=== PATIENT | female | born 1970 | race Caucasian/White ===

== ENCOUNTER 2016-05-15 17:32 | Observation (INO) ==
--- NOTE | 2016-05-15 18:33 | Emergency Department Note ---
Disposition Clinical Impression: Syncope due to orthostatic hypotension, Head injury, Neck pain, Dehydration, Diabetes Disposition: Admitted As Inpatient Referrals: NO,PCP [Non-Partnered Physician] - Forms: ED Satisfaction Letter General Adult HPI - General Chief complaint: ED Syncope Stated complaint: Syncope Time Seen by Provider: 05/15/16 18:32 Source: patient Limitations: no limitations - History of Present Illness HPI Narrative: 46-year-old female with a history of coronary disease, diabetes, and stroke reports emergent department complaining of a head injury. The patient reports she was in the bathroom getting dressed she leaned over and passed out hitting her head. She complains of a severe headache rating it 9 out of 10 as well as significant neck pain. The patient reports she has been taking Tylenol which has been ineffective. She also describes a significant cough but no overt shortness of breath. She has chest pain when breathing in and out. The patient has a remote history of DVT she is not anticoagulated at this time. The patient reports she has had a fever. There is no history of abdominal pain vomiting or diarrhea no leg swelling or pain or coughing up blood. She denies any arm pain and leg pain back pain or injuries apart from acute head pain status post trauma in the right parietal area. There is no history of paresis or loss of urine or stool no seizure-like activity. She reports she was unconscious for a few minutes. The patient does not have a known cardiac arrhythmia and is never passed out before she states. She did not have neck pain or headache prior to passing out and hitting her head. Pain Scale: 10 - Related Data Home Medications Medication Instructions Recorded Confirmed Ciprofloxacin HCl [Cipro] 500 mg PO BID 05/15/16 05/15/16 ClonazePAM [Klonopin] 0.5 mg PO TID 05/15/16 Gabapentin [Neurontin] 300 mg PO QAM 05/15/16 05/15/16 Gabapentin [Neurontin] 600 mg PO HS 05/15/16 05/15/16 Omeprazole [PriLOSEC] 20 mg PO QAM 05/15/16 05/15/16 Allergies Allergy/AdvReac Type Severity Reaction Status Date / Time aspirin Allergy Hives Verified 05/15/16 17:37 ibuprofen Allergy HIVES AND Verified 05/15/16 17:37 VOMITING Iodinated Contrast Media - Allergy Difficulty Verified 01/09/17 17:37 Oral and Breathing ketorolac [From Toradol] Allergy Hives Verified 05/15/16 17:37 naproxen [From Naprosyn] Allergy Hives Verified 05/15/16 17:37 tramadol [From Ultram] Allergy Hives Verified 05/15/16 17:37 All systems ED: reviewed and negative except as stated. 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 Negative hematemesis and a negative Villagran sign.) - Eye Eye exam: Present: normal appearance, PERRL, EOMI. Absent: scleral icterus, conjunctival injection, nystagmus, miosis, mydriasis - ENT ENT exam: normal exam, normal oropharynx, mucous membranes moist, TM's normal bilaterally, normal external ear exam - Neck Neck exam: Present: normal inspection, trachea midline, tenderness. Absent: full ROM, meningismus - Chest Chest inspection: Present: symmetric chest wall rise. Absent: tenderness - Respiratory Respiratory exam: Present: normal lung sounds bilaterally. Absent: respiratory distress - Cardiovascular Cardiovascular exam: Present: regular rate, normal rhythm, normal heart sounds - Abdominal Exam Abdominal exam: Present: soft, Non-Tender. Absent: tenderness, distention, guarding, rebound, rigidity, pulsatile mass - Extremities Exam Extremities exam: Present: normal inspection, full ROM. Absent: tenderness, normal capillary refill, pedal edema, joint swelling, calf tenderness - Expanded Lower Extremity Exam Hip/Pelvis exam: Absent: tenderness Upper leg exam: Absent: tenderness Knee exam: Absent: tenderness Lower leg exam: Absent: tenderness, Homans' sign Neurovascular/Tendon exam: Absent: motor deficit, sensory deficit, tendon deficit - Back Exam Back exam: Present: normal inspection, full ROM. Absent: tenderness, CVA tenderness (R), CVA tenderness (L), vertebral tenderness - Neurological Exam Neurological exam: Present: alert, oriented X3. Absent: CN II-XII intact ( Apparent facial droop, history of CVA, chronic), motor sensory deficit - Psychiatric Psychiatric exam: Present: normal affect, normal mood - Skin Skin exam: Present: warm, dry, intact, normal color. Absent: rash, cyanosis, diaphoresis, erythema, pallor, mottled Course Vital Signs Temperature 98.4 F 05/15/16 17:37 Pulse Rate 98 05/15/16 17:37 Respiratory Rate 18 05/15/16 17:37 Blood Pressure 121/89 05/15/16 17:37 O2 Sat by Pulse Oximetry 97 05/15/16 17:37 Temperature 98.4 F 05/15/16 17:37 Pulse Rate 94 05/15/16 21:21 Respiratory Rate 20 05/15/16 21:18 Blood Pressure 107/85 05/15/16 21:21 O2 Sat by Pulse Oximetry 97 05/15/16 21:18 Oxygen Delivery Oxygen Delivery Room Air Medical Decision Making - [facility] Narrative Medical decision making narrative: The patient has a presentation suggestive of dehydration, she describes dizziness when sitting up, orthostatics did reveal a significant drop in her blood pressure when standing and she was symptomatic. IV fluid was ordered. A troponin level is pending. Lactic acid level is pending, patient does have a UTI. He appears to be somewhat acidotic, and ABG is also been ordered. The patient is symptomatic and has had a syncopal event and injured herself. Based on her presentation, I think it would be best to admit the patient and evaluate and treat further. She is at risk for falling again. I have consulted the hospitalist on-call. Lactic acid and troponin ABG pending. Indications for CT scan head: Blunt head trauma Severe head pain rated 9 out of 10 even after taking Tylenol for pain Syncope Loss of consciousness Multiple comorbidities History of CVA Neurologic defects - Lab Data Lab results reviewed: Yes I reviewed the patient's lab results. Result diagrams: 05/15/16 19:37 05/15/16 19:37 Lab Results 05/15/16 05/15/16 05/15/16 Range/Units 19:37 19:37 19:37 WBC 8.4 (4.3-11.1) K/mcL RBC 4.72 (3.82-4.97) M/mcL Hgb 15.0 (11.5-15.4) g/dL Hct 47.1 H (35.3-44.9) % MCV 99.8 (83.0-100.0) fL MCH 31.8 (28.0-33.3) pg MCHC 31.8 (31.6-35.5) g/dL RDW 13.3 (11.5-14.5) % Plt Count 207 (140-400) K/mcL MPV 9.9 (9.4-12.4) fL Immature Gran % 0.4 (0-4) % Seg Neutrophils % 58.5 % Lymphocytes % 29.6 % Monocytes % 8.3 % Eosinophils % 2.5 % Basophils % 0.7 % Neutrophils # 4.9 (1.6-8.9) K/mcL Lymphocytes # 2.5 (0.6-4.6) K/mcL Monocytes # 0.7 (0.0-1.3) K/mcL Eosinophils # 0.2 (0.0-0.6) K/mcL Basophils # 0.1 (0.0-0.2) K/mcL PT 10.0 (9.4-12.1) Seconds INR 0.9 APTT 22.8 L (26.0-36.0) Seconds Sodium 138 (136-145) mEq/L Potassium 4.5 (3.5-4.5) mEq/L Chloride 111 H (98-109) mEq/L Carbon Dioxide 13 L (19-29) mEq/L BUN 10 (7-20) mg/dL Creatinine 0.66 (0.57-1.11) mg/dL Est GFR ( Amer) > 60 (> 60) Est GFR (Non-Af Amer) > 60 (> 60) BUN/Creatinine Ratio 15 (6-26) Glucose 85 (70-99) mg/dL Calculated Osmolality 284 (280-300) Calcium 9.1 (8.6-10.8) mg/dL C-Reactive Protein 12 H (Less than 5) mg/L Urine Color (Yellow) Urine Clarity (Clear) Urine pH (5.0-8.0) pH Units Ur Specific [place] (1.010-1.025) Urine Protein (Neg-Trace) mg/dL Urine Glucose (UA) (Normal) mg/dL Urine Ketones (Negative) mg/dL Urine Blood (Negative) Urine Nitrite (Negative) Urine Bilirubin (Negative) Urine Urobilinogen (Normal) mg/dL Ur Leukocyte Esterase (Negative) Urine Microscopic RBC (0-3) per hpf Urine Microscopic WBC (0-3) per hpf Ur Squamous Epith Cells (None-Few) per lpf Urine Bacteria (None-Few) per hpf Hyaline Casts (None-Few) per lpf Ur Culture Indicated? (NO) Specimen Rejected 05/15/16 05/15/16 Range/Units 19:37 20:50 WBC (4.3-11.1) K/mcL RBC (3.82-4.97) M/mcL Hgb (11.5-15.4) g/dL Hct (35.3-44.9) % MCV (83.0-100.0) fL MCH (28.0-33.3) pg MCHC (31.6-35.5) g/dL RDW (11.5-14.5) % Plt Count (140-400) K/mcL MPV (9.4-12.4) fL Immature Gran % (0-4) % Seg Neutrophils % % Lymphocytes % % Monocytes % % Eosinophils % % Basophils % % Neutrophils # (1.6-8.9) K/mcL Lymphocytes # (0.6-4.6) K/mcL Monocytes # (0.0-1.3) K/mcL Eosinophils # (0.0-0.6) K/mcL Basophils # (0.0-0.2) K/mcL PT (9.4-12.1) Seconds INR APTT (26.0-36.0) Seconds Sodium (136-145) mEq/L Potassium (3.5-4.5) mEq/L Chloride (98-109) mEq/L Carbon Dioxide (19-29) mEq/L BUN (7-20) mg/dL Creatinine (0.57-1.11) mg/dL Est GFR ( Amer) (> 60) Est GFR (Non-Af Amer) (> 60) BUN/Creatinine Ratio (6-26) Glucose (70-99) mg/dL Calculated Osmolality (280-300) Calcium (8.6-10.8) mg/dL C-Reactive Protein (Less than 5) mg/L Urine Color Yellow (Yellow) Urine Clarity Cloudy A (Clear) Urine pH 5.5 (5.0-8.0) pH Units Ur Specific [place] 1.019 (1.010-1.025) Urine Protein Negative (Neg-Trace) mg/dL Urine Glucose (UA) Normal (Normal) mg/dL Urine Ketones Negative (Negative) mg/dL Urine Blood Negative (Negative) Urine Nitrite Negative (Negative) Urine Bilirubin Negative (Negative) Urine Urobilinogen Normal (Normal) mg/dL Ur Leukocyte Esterase Small H (Negative) Urine Microscopic RBC 0-3 (0-3) per hpf Urine Microscopic WBC 15-30 H (0-3) per hpf Ur Squamous Epith Cells Many H (None-Few) per lpf Urine Bacteria Moderate H (None-Few) per hpf Hyaline Casts None Seen (None-Few) per lpf Ur Culture Indicated? YES A (NO) Specimen Rejected Hemolyzed - Radiology Data Radiology results reviewed: Yes I reviewed the patient's radiology results.
[2016-05-15] MEDS ORDERED: *HR* HYDROcodone/Acet 5/325 mg TABLET PO ONE (19:47)
[2016-05-15 20:01] LABS: BUN/Creatinine Ratio 15 (6-26); Blood Urea Nitrogen 10 mg/dL (7-20); Calcium 9.1 mg/dL (8.6-10.8); Carbon Dioxide 13 mEq/L (19-29); Chloride 111 mEq/L (98-109); Glucose 85 mg/dL (70-99); Osmolality,Calculated 284 (280-300); Potassium 4.5 mEq/L (3.5-4.5); Sodium 138 mEq/L (136-145); eGFR For African Americans > 60 (> 60); eGFR For Non-African Americans > 60 (> 60)
[2016-05-15 20:03] LABS: INR 0.9
[2016-05-15 20:06] LABS: Activated Partial Thrombo Time 22.8 Seconds (26.0-36.0)
[2016-05-15 20:14] LABS: C-Reactive Protein 12 mg/L (Less than 5)
[2016-05-15 20:21] LABS: Basophils # 0.1 K/mcL (0.0-0.2); Basophils % 0.7 %; Eosinophils # 0.2 K/mcL (0.0-0.6); Eosinophils % 2.5 %; Hematocrit 47.1 % (35.3-44.9); Immature Granulocytes % 0.4 % (0-4); Lymphocytes # 2.5 K/mcL (0.6-4.6); Lymphocytes % 29.6 %; Mean Corpuscular HGB Conc 31.8 g/dL (31.6-35.5); Mean Corpuscular Hemoglobin 31.8 pg (28.0-33.3); Mean Corpuscular Volume 99.8 fL (83.0-100.0); Mean Platelet Volume 9.9 fL (9.4-12.4); Monocytes # 0.7 K/mcL (0.0-1.3); Monocytes % 8.3 %; Neutrophils # 4.9 K/mcL (1.6-8.9); Platelet Count 207 K/mcL (140-400); Red Blood Count 4.72 M/mcL (3.82-4.97); Red Cell Distribution Width 13.3 % (11.5-14.5); Segmented Neutrophils % 58.5 %
[2016-05-15 21:02] LABS: Bilirubin,Urine Negative (Negative); Blood,Urine Negative (Negative); Clarity,Urine Cloudy (Clear); Color,Urine Yellow (Yellow); Glucose,Urine (UA) Normal (Normal); Ketones,Urine Negative (Negative); Leukocyte Esterase,Urine Small (Negative); Nitrite,Urine Negative (Negative); PH,Urine 5.5 pH Units (5.0-8.0); Protein,Urine Negative (Neg-Trace); Specific Gravity,Urine 1.019 (1.010-1.025); Urobilinogen,Urine Normal (Normal)
[2016-05-15 21:05] LABS: Bacteria,Urine Moderate per hpf (None-Few); Hyaline Casts,Urine None Seen per lpf (None-Few); RBC,Urine 0-3 per hpf (0-3); Squamous Epithelial Cell,Urine Many per lpf (None-Few); WBC,Urine 15-30 per hpf (0-3)
[2016-05-15] MEDS ORDERED: *HR* HYDROmorphone (PF) 1 MG/ML SYRINGE IVP ONE ×2 (21:27→23:53)
[2016-05-15] MEDS ORDERED: 0.9 % Sodium Chloride 1,000 ML IVC ONE (21:27)
[2016-05-15] MEDS ORDERED: Ondansetron 4 MG/2 ML VIAL IVP ONE (21:28)
[2016-05-16 01:05] LABS: ABG Base Excess -0.3 mEq/L (-2.0 to 3.0); ABG HCO3 26.4 mEQ/L (21-27); ABG Oxygen Saturation 94 % (95-98); ABG PCO2 50 mmHg (35-45); ABG PH 7.33 pH Units (7.32-7.45); ABG PO2 74 mmHg (85-104); ABG TCO2 27.9 mEq/L (20-26); Blood Gas FiO2 21 %
[2016-05-16] MEDS ORDERED: Ondansetron ODT 4 MG TAB.RAPDIS SL PRN (01:08)
[2016-05-16] MEDS ORDERED: Acetaminophen 325 MG TABLET PO PRN (01:08)
[2016-05-16] MEDS ORDERED: Naloxone 0.4 MG/ML INJ IVP PRN (01:08)
--- NOTE | 2016-05-16 01:13 | Internal Med History&Physical ---
Date of Encounter: 05/16/16 Time of Encounter: 00:00 Assessment and Plan (1) Syncope Current visit: Yes Status: Acute Possible etiologies of vasovagal as well as orthostatic hypotension and acute viral illness. Orthostatics in the ED demonstrated 107/85 standing and 122/85 supine pressures. Will give maintenance fluids at 100ml/hr EKG deomstrated normal sinus rhythm. CT head and neck demonstrated no acute fracture or subluxation of the cervical spine and no acute intracranial process. Chest XR: no acute cardiopulmonary process. Qualifiers: Syncope type: unspecified Qualified Code(s): R55 - Syncope and collapse (2) Viral illness Current visit: Yes Status: Acute History of productive cough, fevers and pleuritic pain on inspiration. Labs ordered. Mycoplasma antibodies, rapid flu for A/B, as well as coxsackie B Awaiting lactic acid CRP was elevated at 12. (3) Diabetes Current visit: Yes Status: Acute Diet controlled. Sugar upon arrival was 85. Diabetic diet ordered. 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 No evidence of acute findings currently. Internal Medicine - H&P: HPI Chief complaint: syncope Admitted From: Emergency Dept Plans for Post Hospital Care: Home History of present illness: Ms. Craig is a 46 year old female with PMH significant for DM, stroke, previous DVT, COPD, HLD, HTN, renal stones, PCOS, anxiety and depression who presented to the emergency department with a syncopal episode. The patient states that earlier today she was in the bathroom and put her foot up on the toilet to tie her shoe and as she leaned forward she lost consciousness and fell forward into the wall. She states she came to with the right side of her head resting against the sink. She denies prior history of syncopal episodes, and arrhythmias. She states she has had a cough that has been productive of clear sputum for the past week and has had pain upon inspiration stating that it feels as if her lungs are on fire when she takes a deep breath. She additionally reports having fevers measured at home for the past week between 100-101. She currently complains of a 9/10 headache on the right side of her head that tylenol was unable to help with. She denies nausea, vomiting, diarrhea , loss of bowel or bladder function during her syncopal episode, and any urinary symptoms. Past Med Surg Social Fam HX - Past Medical History Medical history: COPD, DVT, diabetes, hyperlipidemia, hypertension, kidney stones, other Psychiatric history: anxiety, depression - Past Surgical History Surgical History: appendectomy, , cholecystectomy, herniorrhaphy, hysterectomy, sinus surgery, other - Social History Smoking Status: Former smoker Smokeless Tobacco Status: No Alcohol use: none Drug use: none - Family History Mother Living Status: Hx Family Cardiac Disorders: No Hx Family Respiratory Disorders: No Hx Family Cancer: Yes (colon cancer) Hx Family GI Disorders: No Hx Family Genitourinary Disorders: No Hx Family Endocrine Disorder: No Hx Family Musculoskeletal Disorders: No Hx Family Neuromuscular Disorders: No Hx Family Neurologic Disorders: No Hx Family HEENT Disorders: No Hx Family Autoimmune Disorders: No Hx Family Reproductive Disorders: No Hx Family Psychosocial Disorders: No Hx Family Medical Disorders: No Internal Medicine - H&P: Meds Ciprofloxacin HCl [Cipro] 500 mg PO BID 05/15/16 [History] ClonazePAM [Klonopin] 0.5 mg PO TID 05/15/16 [History] Gabapentin [Neurontin] 300 mg PO QAM 05/15/16 [History] Gabapentin [Neurontin] 600 mg PO HS 05/15/16 [History] Omeprazole [PriLOSEC] 20 mg PO QAM 05/15/16 [History] Allergies aspirin Allergy (Verified 05/15/16 17:37) Hives ibuprofen Allergy (Verified 05/15/16 17:37) HIVES AND VOMITING Iodinated Contrast Media - Oral and Allergy (Verified 05/15/16 17:37) Difficulty Breathing ketorolac [From Toradol] Allergy (Verified 05/15/16 17:37) Hives naproxen [From Naprosyn] Allergy (Verified 05/15/16 17:37) Hives tramadol [From Ultram] Allergy (Verified 05/15/16 17:37) Hives All Systems PM: A 10-system review of systems was performed and is negative for pertinent findings except as documented above in the HPI. - Constitutional Constitutional: fever(s), no chills, no night sweats - EENT Eyes: no change in vision, no discharge, no pain, no photophobia Ears: ear pain (right), no ear discharge, no tinnitus Nose, mouth and throat: no dysphagia, no nasal discharge, no neck pain, no sore throat - Cardiovascular Cardiovascular ROS IM: syncope, no chest pain, no diaphoresis, no dyspnea, no lightheadedness, no palpitations - Respiratory Respiratory: cough, pain on inspiration, no dyspnea, no wheezing, no excessive phlegm production - Gastrointestinal Gastrointestinal: no abdominal pain, no diarrhea, no hematemesis, no hematochezia, no melena, no nausea, no vomiting - Genitourinary Genitourinary: no change in urinary stream, no dysuria, no flank pain, no hematuria - Musculoskeletal Musculoskeletal ROS IM: no numbness, no tingling - Integumentary Integumentary IM: no rash, no unusual bruising - Neurological Neurological ROS: no confusion, no convulsions, no focal weakness, no numbness, no tingling, no tremor(s) - Hematologic/Lymphatic Hematologic/Lymphatic: no easy bruising - Constitutional Vitals: Temp Pulse Resp BP Pulse Ox 97.3 F L 91 20 133/72 92 L 05/16/16 00:29 05/16/16 00:29 05/16/16 00:29 05/16/16 00:05/16/16 00:29 General appearance: Present: disheveled, A&O X 3 - Head Head exam: Present: normocephalic Additional comments: Mild swelling of scalp on left parietal area with tenderness to palpation. - Eye Eye exam: Present: EOMI, conjuntiva pink, sclera anicteric Additional comments: Pupils pinpoint, patient was given dilaudid in ED. - Neck Neck exam general surgery: Present: supple, trachea midline. Absent: lymphadenopathy - Respiratory Respiratory exam: Present: CTAB. Absent: accessory muscle use, rales, rhonchi, wheezes - Cardiovascular Cardiovascular exam: Present: RRR, +S1, +S2. Absent: diastolic murmur, gallop, rubs, systolic murmur - GI/Abdominal GI/Abdominal exam: Present: normal bowel sounds, soft, no peritoneal signs. Absent: distended, tenderness Additional comments: obese - Extremities Exam Extremities exam: Present: warm, radial pulses palpable and symetrical. Absent : calf tenderness, cyanotic, pedal edema - Neurological Exam Neurological exam: Present: CN II-XII intact, oriented X3, no focal deficits, facial droop (left sided). Absent: pronater drift, speech deficit - Skin Skin exam: Present: dry, intact Internal Med - H&P Results - Labs CBC & Chem 7: 05/15/16 19:37 05/15/16 19:37 - Attending Attestation I examined this patient and my medical decision-making was reviewed with the FURNACE REPAIR MECHANIC/PA/Advanced Practice Nurse/Resident Physician. I agree with the documented findings, disposition and treatment plan as described except to the extent set forth below.
[2016-05-16] MEDS: 0.9 % Sodium Chloride 1,000 ML IVC SCH ×2 (01:39→10:34)
[2016-05-16] MEDS: *HR* HYDROmorphone (PF) 1 MG/ML SYRINGE IVP PRN ×5 (01:44→21:07)
[2016-05-16] MEDS ORDERED: Ipratropium/Albuterol Neb 3 ML IH ONE (01:46)
[2016-05-16] MEDS: *HR* HYDROcodone/Acet 5/325 mg TABLET PO PRN ×3 (04:23→18:42)
[2016-05-16] MEDS: Gabapentin 300 MG CAPSULE PO SCH (07:44)
[2016-05-16] MEDS: *HR* Heparin 5,000 UNIT/ML VIAL SQ SCH ×3 (07:44→23:17)
--- NOTE | 2016-05-16 14:45 | Electrocardiograph Report ---
[facility] Test Date: 2016-05-15 Pat Name: Kimberley Craig Department: 102 Room: 3B35 Gender: F Area Captain: Rufina : 1970 Requested By: Jose Donahue Order Number: [id number] Reading MD: Roseline Frank Measurements Intervals [place] Rate: 87 P: 61 IN: 162 QRS: 47 QRSD: 92 T: 47 QT: 367 QTc: 411 Interpretive Statements SINUS RHYTHM Electronically Signed On 05-16-16 14:41:01 EST by Roseline Frank
[2016-05-16] MEDS: clonazePAM 0.5 MG TABLET PO PRN (22:09)
[2016-05-16] MEDS: Albuterol 2.5 MG/3 ML NEBULIZER IH PRN (23:40)
[2016-05-17] MEDS: *HR* HYDROmorphone (PF) 1 MG/ML SYRINGE IVP PRN ×2 (01:08→05:20)
[2016-05-17] MEDS: *HR* HYDROcodone/Acet 5/325 mg TABLET PO PRN ×3 (02:50→15:22)
[2016-05-17] MEDS: Albuterol 2.5 MG/3 ML NEBULIZER IH PRN ×4 (03:59→15:57)
[2016-05-17 04:52] LABS: Basophils # 0.1 K/mcL (0.0-0.2); Eosinophils # 0.2 K/mcL (0.0-0.6); Eosinophils % 2.9 %; Hematocrit 39.7 % (35.3-44.9); Hemoglobin 13.2 g/dL (11.5-15.4); Immature Granulocytes % 0.5 % (0-4); Lymphocytes # 2.2 K/mcL (0.6-4.6); Lymphocytes % 30.3 %; Mean Corpuscular HGB Conc 33.2 g/dL (31.6-35.5); Mean Corpuscular Volume 93.2 fL (83.0-100.0); Mean Platelet Volume 10.3 fL (9.4-12.4); Monocytes # 0.8 K/mcL (0.0-1.3); Monocytes % 10.2 %; Platelet Count 198 K/mcL (140-400); Red Blood Count 4.26 M/mcL (3.82-4.97); Red Cell Distribution Width 12.7 % (11.5-14.5); Segmented Neutrophils % 55.1 %
[2016-05-17 05:03] LABS: BUN/Creatinine Ratio 16 (6-26); Blood Urea Nitrogen 11 mg/dL (7-20); Calcium 8.9 mg/dL (8.6-10.8); Carbon Dioxide 19 mEq/L (19-29); Chloride 107 mEq/L (98-109); Glucose 147 mg/dL (70-99); Osmolality,Calculated 288 (280-300); Potassium 3.9 mEq/L (3.5-4.5); Sodium 138 mEq/L (136-145); eGFR For African Americans > 60 (> 60); eGFR For Non-African Americans > 60 (> 60)
[2016-05-17] MEDS: Gabapentin 300 MG CAPSULE PO SCH (09:17)
[2016-05-17] MEDS: *HR* Heparin 5,000 UNIT/ML VIAL SQ SCH ×2 (09:17→15:22)
[2016-05-17] MEDS: clonazePAM 0.5 MG TABLET PO PRN (09:27)
[2016-05-17 14:51] VITALS: BP 130/88
--- NOTE | 2016-05-17 17:03 | Discharge Summary ---
Date of Encounter: 05/17/16 Time of Encounter: 16:53 - Discharge Diagnosis (1) Syncope due to orthostatic hypotension Priority: Primary Status: Acute (2) Benign paroxysmal positional vertigo Priority: Secondary Status: Acute Qualifiers: Laterality: right Qualified Code(s): H81.11 - Benign paroxysmal vertigo, right ear (3) Viral illness Priority: Secondary Status: Acute (4) Morbid obesity Priority: Secondary Status: Chronic Qualifiers: Obesity type: due to excess calories Qualified Code(s): E66.01 - Morbid ( severe) obesity due to excess calories - Discharge Medications Prescriptions: Acetaminophen w/Cod 300-30 mg [Tylenol w/Codeine #3] 1 each PO Q6HR #14 tablet Cefdinir [Omnicef] 300 mg PO BID #10 capsule Gabapentin [Neurontin] 300 mg PO HS #30 capsule Meclizine [Antivert] 25 mg PO BID PRN #30 tablet PRN Reason: Vertigo Home Medications: ClonazePAM [Klonopin] 0.5 mg PO TID 05/15/16 [History] Gabapentin [Neurontin] 300 mg PO QAM 05/15/16 [History] Omeprazole [PriLOSEC] 20 mg PO QAM 05/15/16 [History] Albuterol Neb [Proventil Neb] 2.5 mg IH QID PRN 05/16/16 [History] Albuterol Sulfate [Albuterol Inhaler] 2 puff IH Q4HR PRN 05/16/16 [History] Acetaminophen w/Cod 300-30 mg [Tylenol w/Codeine #3] 1 each PO Q6HR #14 tablet 05/17/16 [Rx] Cefdinir [Omnicef] 300 mg PO BID #10 capsule 05/17/16 [Rx] Gabapentin [Neurontin] 300 mg PO HS #30 capsule 05/17/16 [Rx] Meclizine [Antivert] 25 mg PO BID PRN #30 tablet 05/17/16 [Rx] Allergies/Adverse Reactions: Allergies aspirin Allergy (Verified 05/15/16 17:37) Hives ibuprofen Allergy (Verified 05/15/16 17:37) HIVES AND VOMITING Iodinated Contrast Media - Oral and Allergy (Verified 05/15/16 17:37) Difficulty Breathing ketorolac [From Toradol] Allergy (Verified 05/15/16 17:37) Hives naproxen [From Naprosyn] Allergy (Verified 05/15/16 17:37) Hives tramadol [From Ultram] Allergy (Verified 05/15/16 17:37) Hives Date of admission: 05/16/16 00:24 Primary care physician: Derrek Kumar MD - Patient Status Disposition: Home, Self-Care Condition: Good Overall status at discharge: patient is progressing back to baseline - Discharge Instructions Follow Up With: Derrek Kumar MD [Primary Care Provider] - Hospital course: Ms. Craig is a 46 year old female who presented with syncope and was found to have hx of vertigo and had skipped her meclizine. She also was taking a combination of vicodin and gabapentin which could have contributed to symptoms. CT head was unremarkable. Her Gabapentin has been reduced and patient is given new Rx for Meclizine. She will follow up with her PCP as her symptoms have resolved. She is also given tylenol#3 for tension headache. - Time Spent with Patient Total time spent providing and/or coordinating discharge services: Less than 30 minutes - Constitutional Vitals: Temp Pulse Resp BP Pulse Ox 98.1 F 96 16 130/88 95 05/17/16 14:50 05/17/16 14:50 05/17/16 14:50 05/17/16 14:50 05/17/16 14:50 General appearance: Present: disheveled, A&O X 3 - Head Head exam: Present: atraumatic, normocephalic - Eye Eye exam: Present: PERRL, conjuntiva pink, sclera anicteric Pupils: Present: PERRL - Neck Neck exam general surgery: Present: supple, trachea midline. Absent: lymphadenopathy - Respiratory Respiratory exam: Present: CTAB. Absent: accessory muscle use, rales, rhonchi, wheezes - Cardiovascular Cardiovascular exam: Present: RRR, +S1, +S2. Absent: diastolic murmur, gallop, rubs, systolic murmur - GI/Abdominal GI/Abdominal exam: Present: normal bowel sounds, soft, no peritoneal signs. Absent: distended, tenderness - Extremities Exam Extremities exam: Present: warm, radial pulses palpable and symetrical. Absent : calf tenderness, cyanotic, pedal edema - Neurological Exam Neurological exam: Present: CN II-XII intact, oriented X3, no focal deficits. Absent: pronater drift, facial droop, speech deficit - Skin Skin exam: Present: dry, intact
[2016-05-19 08:15] LABS: Mycoplasma pneumoniae IgG 0.12 U/L (<=0.09)
[2016-05-23 21:11] LABS: Coxsackie B Type 1 Antibody 1:40 (<1:10); Coxsackie B Type 2 Antibody 1:40 (<1:10); Coxsackie B Type 3 Antibody >= 1:640 (<1:10); Coxsackie B Type 4 Antibody >= 1:640 (<1:10); Coxsackie B Type 5 Antibody 1:20 (<1:10)
[2016-05-24 07:34] LABS: Coxsackie B Type 6 Antibody <1:10 (<1:10)
== END 2016-05-17 17:41 | disposition home or self-care (01) ==
LOC: 3BNU 17:32 → EMEROO 17:32 → SUATTDRO 05-16 00:24 → 3BNU 05-16 00:28
PROVIDERS: ADMIT Internal Medicine; ATTEND Family Medicine

== ENCOUNTER 2017-11-06 07:22 | Inpatient (IN) ==
[2017-11-06] MEDS ORDERED: *HR* FentaNYL (PF) 100 MCG/2 ML VIAL IVP ONE ×2 (07:36→09:10)
[2017-11-06] MEDS ORDERED: Ondansetron 4 MG/2 ML VIAL IVP ONE (07:36)
--- NOTE | 2017-11-06 07:39 | Emergency Department Note ---
Disposition Clinical Impression: Sigmoid diverticulitis Disposition: Admitted As Inpatient Condition: Fair Forms: ED Satisfaction Letter, Work/School Release Time of Disposition: 09:19 Abdominal Pain HPI - General Chief Complaint: ED Abdominal Pain Stated Complaint: abd pain Time Seen by Provider: 11/06/17 07:28 Source: patient Mode of arrival: ambulatory Limitations: no limitations Nursing Notes Reviewed: Yes Vital Signs Reviewed: Yes - History of Present Illness HPI Narrative: Left lower quadrant abdominal pain similar to previous bouts of diverticulitis. Pt Subjective Complaint: abdominal pain Onset (ago): hour(s) Consistency: constant Location: LLQ Pain Severity: severe Quality: other ("Pins and needles") Radiation: none Migration to: other (Vagina) Improves with: nothing Worsens with: nothing Associated symptoms: Reports: nausea Treatments prior to arrival: none - Related Data Home Medications Medication Instructions Recorded Confirmed Albuterol Neb [Proventil Neb] 2.5 mg IH QID PRN 05/16/16 01/11/17 Albuterol Sulfate [Albuterol 2 puff IH Q4HR PRN 05/16/16 01/11/17 Inhaler] Spiriva 1 spray IH DAILY 12/28/16 01/11/17 Previous Rx's Medication Instructions Recorded Gabapentin [Neurontin] 300 mg PO HS #30 capsule 05/17/16 Ciprofloxacin/Hydrocortisone 3 drop OT BID #5 drops.susp 12/28/16 [Cipro Hc Otic Suspension] Nitrofurantoin Monohyd/M-Cryst 100 mg PO BID #14 capsule 01/11/17 [Macrobid 100 mg Capsule] Dicyclomine [Bentyl] 10 mg PO QID PRN #40 capsule 02/22/17 Azithromycin [Azithromycin 6-Tab 250 mg PO PER PKG DI #6 tab 03/30/17 Pack] GuaiFENesin ER [Mucinex] 600 mg PO BID #10 tbbp.12hr 03/30/17 PredniSONE [Deltasone] 40 mg PO DAILY #4 tablet 03/30/17 Fluconazole [Diflucan] 150 mg PO ONCE #1 tablet 05/02/17 predniSONE [Prednisone] 50 mg PO DAILY 5 Days #5 tablet 05/13/17 LORazepam [Ativan] 0.5 mg PO BID PRN #6 tablet 05/14/17 Levofloxacin [Levaquin] 750 mg PO DAILY #5 tablet 05/30/17 Ondansetron ODT [Zofran ODT] 4 mg SL Q6HR #20 tab.rapdis 06/19/17 Ciprofloxacin [Cipro] 500 mg PO BID #14 tablet 06/24/17 metroNIDAZOLE [Flagyl] 500 mg PO TID #21 tablet 06/24/17 Albuterol Neb [Proventil Neb] 2.5 mg IH Q4-6H PRN #30 vial.neb 06/26/17 Dextromethorphan HBr [Robitussin] 15 mg PO Q4-6H PRN #60 capsule 06/26/17 GuaiFENesin ER [Mucinex] 600 mg PO BID #20 tbbp.12hr 06/26/17 predniSONE [Prednisone] 50 mg PO DAILY #5 tablet 06/26/17 Ciprofloxacin [Cipro] 500 mg PO BID #20 tablet 09/01/17 Ondansetron ODT [Zofran ODT] 4 mg SL Q6HR #10 tab.rapdis 09/01/17 metroNIDAZOLE [Flagyl] 500 mg PO BID #20 tablet 09/01/17 Ciprofloxacin [Cipro] 500 mg PO BID #20 tablet 09/19/17 Hyoscyamine SL [Levsin SL] 0.125 mg SL TID #10 tab.subl 09/19/17 Ondansetron ODT [Zofran ODT] 4 mg SL Q6HR #10 tab.rapdis 09/19/17 metroNIDAZOLE [Flagyl] 500 mg PO TID #30 tablet 09/19/17 Albuterol Sulfate [Albuterol 1 puff IH Q6HR PRN #1 inhaler 10/04/17 Inhaler] Azithromycin [Azithromycin 6-Tab 250 mg PO PER PKG DI #6 tab 10/04/17 Pack] Benzonatate [Tessalon] 200 mg PO TID PRN #9 capsule 10/04/17 Ipratropium/Albuterol Neb [Duoneb] 3 ml IH Q4HR PRN #12 vial.neb 10/04/17 Lidocaine Patch [Lidoderm 5% patch] 1 each TP DAILY PRN #3 adh..patch 10/04/17 predniSONE [Prednisone] 50 mg PO DAILY #4 tablet 10/04/17 Ciprofloxacin [Cipro] 500 mg PO BID #20 tablet 10/15/17 Hyoscyamine SL [Levsin SL] 0.125 mg SL TID #10 tab.subl 10/15/17 metroNIDAZOLE [Flagyl] 500 mg PO BID #20 tablet 10/15/17 Cephalexin [Keflex] 500 mg PO QID #28 capsule 10/21/17 Allergies Allergy/AdvReac Type Severity Reaction Status Date / Time aspirin Allergy Hives Verified 10/04/17 02:40 ibuprofen Allergy HIVES AND Verified 10/04/17 02:40 VOMITING Iodinated Contrast- Oral and Allergy Difficulty Verified 10/04/17 02:40 IV Dye Breathing ketorolac [From Toradol] Allergy Hives Verified 10/04/17 02:40 naproxen [From Naprosyn] Allergy Hives Verified 10/04/17 02:40 tramadol [From Ultram] Allergy Hives Verified 10/04/17 02:40 All systems ED: reviewed and negative except as stated. Constitutional: Reports: as per HPI Eyes: Reports: as per HPI ENT ED: Reports: as per HPI Cardiovascular: Reports: as per HPI Respiratory: Reports: as per HPI Gastrointestinal: Reports: abdominal pain, nausea Genitourinary: Reports: as per HPI Musculoskeletal: Reports: as per HPI Integumentary: Reports: as per HPI Neurological: Reports: as per HPI Psychiatric: Reports: as per HPI Endocrine: Reports: as per HPI Hematological/Lymphatic: Reports: as per HPI Allergic/Immunologic: Reports: as per HPI Abdominal Pain PMH - Past Medical History Medical history: Reports: COPD, CVA, diabetes, hyperlipidemia, hypertension, kidney stones, other (Diverticulitis) Female Surgical History: Reports: appendectomy, cholecystectomy, herniorrhaphy, hysterectomy, Tonsillectomy, 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: Reports: polycystic ovary syndrome Psychiatric history: Reports: anxiety, depression - Social History Smoking status: Never smoker Alcohol use: Reports: rarely Drug use: Reports: none Physical Exam Visibly uncomfortable - General Limitations: no limitations General appearance: alert, anxious - Head Head exam: atraumatic - Eye Eye exam: Present: normal appearance - ENT ENT exam: normal exam - Neck Neck exam: Present: normal inspection, full ROM - Chest Chest inspection: Present: normal inspection, symmetric chest wall rise - Respiratory Respiratory exam: Present: normal lung sounds bilaterally - Cardiovascular Cardiovascular exam: Present: regular rate, normal rhythm, normal heart sounds - Abdominal Exam Abdominal exam: Present: soft, tenderness (Tenderness localized to left lower quadrant. No guarding, rebound, rigidity), normal bowel sounds Abdominal tenderness: Absent: RUQ, RLQ - Rectal Exam Rectal exam: Present: deferred - Extremities Exam Extremities exam: Present: normal inspection - Neurological Exam Neurological exam: Present: alert, oriented X3, CN II-XII intact, normal gait, other (Chronic facial droop) - Psychiatric Psychiatric exam: Present: normal mood, anxious - Skin Skin exam: Present: warm, dry, intact Course Course Narrative: Patient presents with left lower quadrant abdominal pain. Subjectively she states this is similar to her previous bouts of diverticulitis. Per my review of medical records her last CT abdomen and pelvis was dated October [address]. CT abdomen and pelvis ordered today. I will check labs and offer the patient symptomatically treatment. - Reevaluation(s) Reevaluation #1: Test results discussed with patient. I will request admission to the medicine service Vital Signs Temperature 97.9 F 11/06/17 07:33 Pulse Rate 91 11/06/17 07:33 Respiratory Rate 14 11/06/17 07:33 Blood Pressure 130/86 11/06/17 07:33 O2 Sat by Pulse Oximetry 94 11/06/17 07:33 Temperature 97.9 F 11/06/17 07:33 Pulse Rate 82 11/06/17 08:59 Respiratory Rate 15 11/06/17 08:59 Blood Pressure 121/71 11/06/17 08:59 O2 Sat by Pulse Oximetry 92 11/06/17 08:59 Oxygen Delivery Oxygen Delivery Room Air Abdominal Pain - Medical Records Medical records reviewed: Yes I reviewed the patient's medical records. - Lab Data Lab results reviewed: Yes I reviewed the patient's lab results. Result diagrams: 11/06/17 07:43 11/06/17 07:43 Lab Results 11/06/17 11/06/17 11/06/17 Range/Units 07:43 07:43 07:43 WBC 8.8 (4.3-11.1) K/mcL RBC 4.65 (3.82-4.97) M/mcL Hgb 13.8 (11.5-15.4) g/dL Hct 41.9 (35.3-44.9) % MCV 90.1 (83.0-100.0) fL MCH 29.7 (28.0-33.3) pg MCHC 32.9 (31.6-35.5) g/dL RDW 14.1 (11.5-14.5) % Plt Count 237 (140-400) K/mcL MPV 9.2 L (9.4-12.4) fL Immature Gran % 0.3 (0-4) % Seg Neutrophils % 59.9 % Lymphocytes % 27.6 % Monocytes % 8.0 % Eosinophils % 3.6 % Basophils % 0.6 % Neutrophils # 5.3 (1.6-8.9) K/mcL Lymphocytes # 2.4 (0.6-4.6) K/mcL Monocytes # 0.7 (0.0-1.3) K/mcL Eosinophils # 0.3 (0.0-0.6) K/mcL Basophils # 0.1 (0.0-0.2) K/mcL PT (9.4-12.1) Seconds INR Sodium 140 (136-145) mEq/L Potassium 4.0 (3.5-5.1) mEq/L Chloride 110 H (98-107) mEq/L Carbon Dioxide 21 L (23-29) mEq/L BUN 11 (6-20) mg/dL Creatinine 0.71 (0.60-1.20) mg/dL Est GFR ( Amer) > 60 (> 60) Est GFR (Non-Af Amer) > 60 (> 60) BUN/Creatinine Ratio 15 (6-26) Glucose 122 H (70-105) mg/dL Calculated Osmolality 291 (280-300) Calcium 9.5 (8.6-10.3) mg/dL Total Bilirubin 0.3 (0.3-1.0) mg/dL AST 22 (13-39) Units/L ALT 25 (7-52) Units/L Alkaline Phosphatase 64 (34-104) Units/L Serum Total Protein 6.8 (6.4-8.9) g/dL Albumin 4.2 (3.5-5.7) g/dL Globulin 2.6 (2.4-3.5) g/dL Albumin/Globulin Ratio 1.6 (1.1-2.2) Lipase 32 (11-82) Units/L Urine Color Yellow (Yellow) Urine Clarity Clear (Clear) Urine pH 6.0 (5.0-8.0) pH Units Ur Specific [place] 1.010 (1.010-1.025) Urine Protein Negative (Neg-Trace) mg/dL Urine Glucose (UA) Normal (Normal) mg/dL Urine Ketones Negative (Negative) mg/dL Urine Blood Negative (Negative) Urine Nitrite Negative (Negative) Urine Bilirubin Negative (Negative) Urine Urobilinogen Normal (Normal) mg/dL Ur Leukocyte Esterase Negative (Negative) 11/06/17 Range/Units 07:43 WBC (4.3-11.1) K/mcL RBC (3.82-4.97) M/mcL Hgb (11.5-15.4) g/dL Hct (35.3-44.9) % MCV (83.0-100.0) fL MCH (28.0-33.3) pg MCHC (31.6-35.5) g/dL RDW (11.5-14.5) % Plt Count (140-400) K/mcL MPV (9.4-12.4) fL Immature Gran % (0-4) % Seg Neutrophils % % Lymphocytes % % Monocytes % % Eosinophils % % Basophils % % Neutrophils # (1.6-8.9) K/mcL Lymphocytes # (0.6-4.6) K/mcL Monocytes # (0.0-1.3) K/mcL Eosinophils # (0.0-0.6) K/mcL Basophils # (0.0-0.2) K/mcL PT 10.6 (9.4-12.1) Seconds INR 0.9 Sodium (136-145) mEq/L Potassium (3.5-5.1) mEq/L Chloride (98-107) mEq/L Carbon Dioxide (23-29) mEq/L BUN (6-20) mg/dL Creatinine (0.60-1.20) mg/dL Est GFR ( Amer) (> 60) Est GFR (Non-Af Amer) (> 60) BUN/Creatinine Ratio (6-26) Glucose (70-105) mg/dL Calculated Osmolality (280-300) Calcium (8.6-10.3) mg/dL Total Bilirubin (0.3-1.0) mg/dL AST (13-39) Units/L ALT (7-52) Units/L Alkaline Phosphatase (34-104) Units/L Serum Total Protein (6.4-8.9) g/dL Albumin (3.5-5.7) g/dL Globulin (2.4-3.5) g/dL Albumin/Globulin Ratio (1.1-2.2) Lipase (11-82) Units/L Urine Color (Yellow) Urine Clarity (Clear) Urine pH (5.0-8.0) pH Units Ur Specific [place] (1.010-1.025) Urine Protein (Neg-Trace) mg/dL Urine Glucose (UA) (Normal) mg/dL Urine Ketones (Negative) mg/dL Urine Blood (Negative) Urine Nitrite (Negative) Urine Bilirubin (Negative) Urine Urobilinogen (Normal) mg/dL Ur Leukocyte Esterase (Negative) - Radiology Data Radiology results reviewed: Yes I reviewed the patient's radiology results.
[2017-11-06 07:51] LABS: Bilirubin,Urine Negative (Negative); Blood,Urine Negative (Negative); Clarity,Urine Clear (Clear); Color,Urine Yellow (Yellow); Glucose,Urine (UA) Normal (Normal); Ketones,Urine Negative (Negative); Leukocyte Esterase,Urine Negative (Negative); Nitrite,Urine Negative (Negative); Protein,Urine Negative (Neg-Trace); Urobilinogen,Urine Normal (Normal)
[2017-11-06 07:53] LABS: Basophils # 0.1 K/mcL (0.0-0.2); Basophils % 0.6 %; Eosinophils # 0.3 K/mcL (0.0-0.6); Eosinophils % 3.6 %; Hematocrit 41.9 % (35.3-44.9); Hemoglobin 13.8 g/dL (11.5-15.4); Immature Granulocytes % 0.3 % (0-4); Lymphocytes # 2.4 K/mcL (0.6-4.6); Lymphocytes % 27.6 %; Mean Corpuscular HGB Conc 32.9 g/dL (31.6-35.5); Mean Corpuscular Hemoglobin 29.7 pg (28.0-33.3); Mean Corpuscular Volume 90.1 fL (83.0-100.0); Mean Platelet Volume 9.2 fL (9.4-12.4); Monocytes # 0.7 K/mcL (0.0-1.3); Neutrophils # 5.3 K/mcL (1.6-8.9); Platelet Count 237 K/mcL (140-400); Red Blood Count 4.65 M/mcL (3.82-4.97); Red Cell Distribution Width 14.1 % (11.5-14.5); Segmented Neutrophils % 59.9 %
[2017-11-06 08:00] LABS: INR 0.9; Prothrombin Time 10.6 Seconds (9.4-12.1)
[2017-11-06 08:14] LABS: Alanine Aminotransferase 25 Units/L (7-52); Albumin 4.2 g/dL (3.5-5.7); Albumin/Globulin Ratio 1.6 (1.1-2.2); Alkaline Phosphatase 64 Units/L (34-104); Aspartate Amino Transferase 22 Units/L (13-39); BUN/Creatinine Ratio 15 (6-26); Bilirubin,Total 0.3 mg/dL (0.3-1.0); Blood Urea Nitrogen 11 mg/dL (6-20); Calcium 9.5 mg/dL (8.6-10.3); Carbon Dioxide 21 mEq/L (23-29); Chloride 110 mEq/L (98-107); Globulin 2.6 g/dL (2.4-3.5); Glucose 122 mg/dL (70-105); Lipase 32 Units/L (11-82); Osmolality,Calculated 291 (280-300); Sodium 140 mEq/L (136-145); Total Protein 6.8 g/dL (6.4-8.9); eGFR For African Americans > 60 (> 60); eGFR For Non-African Americans > 60 (> 60)
[2017-11-06] MEDS ORDERED: MetroNIDAZOLE 500 MG/100 ML 500 MG/100 ML BAG IVPB ONE (09:18)
[2017-11-06] MEDS ORDERED: Naloxone 0.4 MG/ML INJ IVP PRN (09:24)
[2017-11-06] MEDS ORDERED: 0.9 % Sodium Chloride 1,000 ML IVC SCH (09:30)
[2017-11-06] MEDS ORDERED: D5% in Water 1,000 ML IVC PRN (10:10)
[2017-11-06] MEDS ORDERED: Dextrose Gel 15 GM/37.5 ML TUBE PO PRN ×2 (10:10)
[2017-11-06] MEDS ORDERED: *HR* Dextrose 50 % in Water (Syg) 50 ML SYRINGE IVP PRN (10:10)
[2017-11-06] MEDS ORDERED: HYDROXYZINE PAMOATE 50 MG PO PRN (10:44)
[2017-11-06] MEDS ORDERED: clonazePAM 0.5 MG TABLET PO PRN (10:44)
--- NOTE | 2017-11-06 10:50 | Internal Med History&Physical ---
Date of Encounter: 11/06/17 Time of Encounter: 10:45 Internal Medicine - H&P: HPI Chief complaint: Abdominal pain since yesterday History of present illness: Ms. Craig is a 47 year old female with pmh of diverticulitis who presents with left lower quadrant pain since yesterday. Patient says pain is typical of her diverticulitis and last episode was about a year ago. She says she had sudden onset pain in left lower quadrant starting yesterday. pain is about 10/10, sharp with contractions. She denies any fevers or chills. She has had no nausea or vomiting. CT scan in the ER showed evidence of sigmoid diverticulitis. Past Med Surg Social Fam HX - Past Medical History Medical history: COPD, CVA, diabetes, hyperlipidemia, hypertension, kidney stones, other (Diverticulitis) Additional medical history: diverticulitis. 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 - Social History Smoking Status: Never smoker Smokeless Tobacco Status: No Alcohol use: rarely Drug use: none - Family History Mother Living Status: Hx Family Cardiac Disorders: No Hx Family Respiratory Disorders: No Hx Family Cancer: Yes (colon cancer) Hx Family GI Disorders: No Hx Family Endocrine Disorder: No Hx Family Neuromuscular Disorders: No Hx Family Neurologic Disorders: No Hx Family HEENT Disorders: No Hx Family Autoimmune Disorders: No Internal Medicine - H&P: Meds Amitriptyline [Elavil] 25 mg PO HS 11/06/17 [History] Fenofibrate Nanocrystallized [Triglide] 160 mg PO DAILY 11/06/17 [History] Gabapentin [Neurontin] 600 mg PO BID 11/06/17 [History] HYDROcodone/Acet 5/325 mg [[place] 5-325 mg] 1 tab PO DAILY PRN 11/06/17 [History] HydrOXYzine Pamoate [Vistaril] 50 mg PO Q6H PRN 11/06/17 [History] Lisinopril [Zestril] 5 mg PO DAILY 11/06/17 [History] Metformin HCl [Metformin HCl ER] 500 mg PO QPM 11/06/17 [History] OLANZapine [Zyprexa] 10 mg PO QAM 11/06/17 [History] OLANZapine [Zyprexa] 15 mg PO HS 11/06/17 [History] Omeprazole [PriLOSEC] 20 mg PO DAILY 11/06/17 [History] Propranolol [Inderal] 20 mg PO TID 11/06/17 [History] cloNIDine HCl [CloNIDine HCl] 0.1 mg PO BID 11/06/17 [History] clonazePAM [Klonopin] 0.5 mg PO TID PRN 11/06/17 [History] 3 Allergy/AdvReac Type Severity Reaction Status Date / Time aspirin Allergy Hives Verified 10/04/17 02:40 ibuprofen Allergy HIVES AND Verified 10/04/17 02:40 VOMITING Iodinated Contrast- Oral and Allergy Difficulty Verified 10/04/17 02:40 IV Dye Breathing ketorolac [From Toradol] Allergy Hives Verified 10/04/17 02:40 naproxen [From Naprosyn] Allergy Hives Verified 10/04/17 02:40 tramadol [From Ultram] Allergy Hives Verified 10/04/17 02:40 All Systems PM: A 10-system review of systems was performed and is negative for pertinent findings except as documented above in the HPI. - Constitutional Constitutional: no chills, no fever(s), no night sweats - EENT Eyes: no change in vision, no discharge, no pain, no photophobia Ears: no ear discharge, no ear pain, no tinnitus Nose, mouth and throat: no dysphagia, no nasal discharge, no neck pain, no sore throat - Cardiovascular Cardiovascular ROS IM: no chest pain, no diaphoresis, no dyspnea, no lightheadedness, no palpitations, no syncope - Respiratory Respiratory: no cough, no dyspnea, no wheezing, no excessive phlegm production - Gastrointestinal Gastrointestinal: abdominal pain, nausea, no diarrhea, no hematemesis, no hematochezia, no melena, no vomiting - Genitourinary Genitourinary: no change in urinary stream, no dysuria, no flank pain, no hematuria - Musculoskeletal Musculoskeletal ROS IM: no numbness, no tingling - Integumentary Integumentary IM: no rash, no unusual bruising - Neurological Neurological ROS: no confusion, no convulsions, no focal weakness, no numbness, no tingling, no tremor(s) - Hematologic/Lymphatic Hematologic/Lymphatic: no easy bruising - Constitutional Vitals: Temp Pulse Resp BP Pulse Ox 97.7 F 80 15 113/76 96 11/06/17 10:16 11/06/17 10:16 11/06/17 10:16 11/06/17 10:16 11/06/17 10:16 - Head Head exam: Present: atraumatic, normocephalic - Eye Eye exam: Present: PERRL, conjuntiva pink, sclera anicteric Pupils: Present: PERRL - Neck Neck exam general surgery: Present: supple, trachea midline. Absent: lymphadenopathy - Respiratory Respiratory exam: Present: CTAB. Absent: accessory muscle use, rales, rhonchi, wheezes - Cardiovascular Cardiovascular exam: Present: RRR, +S1, +S2. Absent: diastolic murmur, gallop, rubs, systolic murmur - GI/Abdominal GI/Abdominal exam: Present: normal bowel sounds, soft, no peritoneal signs. Absent: distended, tenderness Additional comments: Left lower quadrant tenderness to palpation - Extremities Exam Extremities exam: Present: warm, radial pulses palpable and symmetrical. Absent : calf tenderness, cyanotic, pedal edema - Neurological Exam Neurological exam: Present: CN II-XII intact, oriented X3, no focal deficits. Absent: pronater drift, facial droop, speech deficit - Skin Skin exam: Present: dry, intact Internal Med - H&P Results - Labs CBC & Chem 7: 11/06/17 07:43 11/06/17 07:43 - Assessment and plan (1) Sigmoid diverticulitis Current Visit: Yes Status: Acute Assessment and plan: Patient has left lower quadrant pain with CT evidence of diverticulitis. Keep NPO, give IV fluids, start on antibiotics with cipro ad flagyl. 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
[2017-11-06] MEDS: D5% in 0.45% NACL 1,000 ML IVC SCH (10:55)
[2017-11-06 11:08] LABS: Estimated Average Glucose 123 mg/dl; Hemoglobin A1C 5.9 %
[2017-11-06] MEDS: Insulin LISPRO 300 UNITS/3 ML VIAL SQ SCH ×2 (12:02→18:17)
[2017-11-06] MEDS: OLANZapine 5 MG TAB.RAPDIS PO SCH ×2 (12:06→20:12)
[2017-11-06] MEDS: *HR* Morphine 2 MG/ML SYRINGE IVP SCH ×4 (12:06→23:39)
[2017-11-06] MEDS: MetroNIDAZOLE 500 MG/100 ML 500 MG/100 ML BAG IVPB SCH ×2 (16:00→23:39)
[2017-11-06] MEDS: cloNIDine HCl 0.1 MG TABLET PO SCH (20:12)
[2017-11-06] MEDS: Gabapentin 300 MG CAPSULE PO SCH (20:12)
[2017-11-07] MEDS: Insulin LISPRO 300 UNITS/3 ML VIAL SQ SCH ×5 (00:16→21:20)
[2017-11-07 02:06] LABS: Basophils # 0.1 K/mcL (0.0-0.2); Basophils % 0.6 %; Eosinophils # 0.3 K/mcL (0.0-0.6); Eosinophils % 3.7 %; Hematocrit 39.2 % (35.3-44.9); Hemoglobin 12.8 g/dL (11.5-15.4); Immature Granulocytes % 0.4 % (0-4); Lymphocytes # 2.1 K/mcL (0.6-4.6); Lymphocytes % 26.1 %; Mean Corpuscular HGB Conc 32.7 g/dL (31.6-35.5); Mean Corpuscular Hemoglobin 29.6 pg (28.0-33.3); Mean Corpuscular Volume 90.7 fL (83.0-100.0); Mean Platelet Volume 9.3 fL (9.4-12.4); Monocytes # 0.8 K/mcL (0.0-1.3); Monocytes % 10.3 %; Neutrophils # 4.8 K/mcL (1.6-8.9); Platelet Count 217 K/mcL (140-400); Red Blood Count 4.32 M/mcL (3.82-4.97); Segmented Neutrophils % 58.9 %
[2017-11-07 02:33] LABS: BUN/Creatinine Ratio 12 (6-26); Blood Urea Nitrogen 9 mg/dL (6-20); Calcium 9.3 mg/dL (8.6-10.3); Carbon Dioxide 28 mEq/L (23-29); Chloride 108 mEq/L (98-107); Glucose 103 mg/dL (70-105); Magnesium 2.2 mg/dL (1.6-2.6); Osmolality,Calculated 289 (280-300); Phosphorous 4.2 mg/dL (2.7-4.5); Potassium 3.9 mEq/L (3.5-5.1); Sodium 140 mEq/L (136-145); eGFR For African Americans > 60 (> 60); eGFR For Non-African Americans > 60 (> 60)
[2017-11-07] MEDS: *HR* Morphine 2 MG/ML SYRINGE IVP SCH ×3 (04:21→11:36)
[2017-11-07] MEDS: D5% in 0.45% NACL 1,000 ML IVC SCH (04:23)
[2017-11-07] MEDS: OLANZapine 5 MG TAB.RAPDIS PO SCH ×2 (08:14→19:58)
[2017-11-07] MEDS: Gabapentin 300 MG CAPSULE PO SCH ×2 (08:15→19:59)
[2017-11-07] MEDS: cloNIDine HCl 0.1 MG TABLET PO SCH ×2 (08:15→19:59)
[2017-11-07] MEDS: Fenofibrate 54 MG TABLET PO SCH (08:15)
[2017-11-07] MEDS: MetroNIDAZOLE 500 MG/100 ML 500 MG/100 ML BAG IVPB SCH (08:17)
[2017-11-07] MEDS ORDERED: OXYCODONE Oral CONC 10 MG/0.5 ML ORAL.SYG SL PRN (11:52)
[2017-11-07] MEDS: *HR* OxyCODONE/APAP 5/325 TABLET PO PRN (14:09)
[2017-11-07] MEDS: metroNIDAZOLE 500 MG TABLET PO SCH ×2 (14:31→19:58)
--- NOTE | 2017-11-07 17:33 | Internal Med Progress Note ---
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 group home use Diabetes mellitus complication status: without complication Qualified Code(s): E11.9 - Type 2 diabetes mellitus without complications (3) Hypertension Current Visit: Yes Status: Chronic Qualifiers: Hypertension type: essential hypertension Qualified Code(s): I10 - Essential (primary) hypertension (4) GERD (gastroesophageal reflux disease) Current Visit: Yes Status: Chronic Qualifiers: Esophagitis presence: esophagitis presence not specified Qualified Code(s) : K21.9 - Gastro-esophageal reflux disease without esophagitis - Time Spent With Patient Total time spent is greater than 50% in coordination of care (as documented) at patient's floor/unit and/or counseling patient: 25 - 35 minutes - Subjective Interval history: .. The patient feels better. Her left lower quadrant abdominal pain is mild/ moderate. Is not associated with nausea or vomiting. Denies diarrhea/ constipation. She has normal urination. OBJECTIVE: .. Skin: Free of rash and discoloration. Respiratory: Normal breath sounds; no crackles or wheezes. CV: Heart is regular; no gallop or murmur. GI: Abdomen is mildly tender in LLQ. There is no palpable mass or visceromegaly. Neuro: There is no focal deficits. ASSESSMENT AND PLAN: .. Acute sigmoid diverticulitis. She has some typical CT findings. Her WBC count is normal. We started her on clear liquids; advanced to diabetic diet in the evening. We lost peripheral IV access. We changed her IV antibiotics to oral once. Type 2 diabetes mellitus. Diabetic diet has been restarted. We will restart her metformin. Hypertension. Under control. We will continue propranolol, lisinopril and clonidine. GERD. We will keep her on Prilosec. Tentative discharge is tomorrow. - Constitutional Vitals: Temp Pulse Resp BP Pulse Ox 99.8 F H 92 18 97/74 92 11/07/17 15:05 11/07/17 15:05 11/07/17 15:05 11/07/17 15:05 11/07/17 15:05 Internal Medicine: Result - Labs CBC & Chem 7: 11/07/17 01:47 11/07/17 01:47 Labs: Short CBC 11/07/17 Range/Units 01:47 WBC 8.2 (4.3-11.1) K/mcL Hgb 12.8 (11.5-15.4) g/dL Hct 39.2 (35.3-44.9) % Plt Count 217 (140-400) K/mcL Neutrophils # 4.8 (1.6-8.9) K/mcL BMP 11/07/17 01:47 Sodium 140 Potassium 3.9 Chloride 108 H Carbon Dioxide 28 BUN 9 Creatinine 0.74 Glucose 103 Calcium 9.3 - ABG Interpretation ABG results: PT/INR, D-dimer PT 10.6 Seconds (9.4-12.1) 11/06/17 07:43 Consult Discharge Plan - Plan Referrals: Constantino Larkin MD [Primary Care Provider] - 11/14/17 9:30 am
[2017-11-07] MEDS ORDERED: Acetaminophen 325 MG TABLET PO PRN (19:37)
[2017-11-08] MEDS: *HR* OxyCODONE/APAP 5/325 TABLET PO PRN ×2 (02:01→08:48)
[2017-11-08 07:05] VITALS: BP 101/70
[2017-11-08] MEDS: metroNIDAZOLE 500 MG TABLET PO SCH (08:46)
[2017-11-08] MEDS: Gabapentin 300 MG CAPSULE PO SCH (08:48)
[2017-11-08] MEDS: OLANZapine 5 MG TAB.RAPDIS PO SCH (08:48)
[2017-11-08] MEDS: Fenofibrate 54 MG TABLET PO SCH (08:49)
[2017-11-08] MEDS: Insulin LISPRO 300 UNITS/3 ML VIAL SQ SCH ×2 (08:50→12:00)
[2017-11-08] MEDS ORDERED: Albuterol 2.5 MG/3 ML NEBULIZER IH PRN (10:11)
[2017-11-08] MEDS: cloNIDine HCl 0.1 MG TABLET PO SCH (10:16)
--- NOTE | 2017-11-08 10:54 | Discharge Summary ---
Date of Encounter: 11/08/17 Time of Encounter: 10:52 - Discharge Diagnosis (1) Sigmoid diverticulitis Priority: Primary Status: Acute (2) Type 2 diabetes mellitus Priority: Secondary Status: Chronic Qualifiers: Diabetes mellitus correction insulin use: without correction use Diabetes mellitus complication status: without complication Qualified Code(s): E11.9 - Type 2 diabetes mellitus without complications (3) Hypertension Priority: Secondary Status: Chronic Qualifiers: Hypertension type: essential hypertension Qualified Code(s): I10 - Essential (primary) hypertension (4) GERD (gastroesophageal reflux disease) Priority: Secondary Status: Chronic Qualifiers: Esophagitis presence: esophagitis presence not specified Qualified Code(s) : K21.9 - Gastro-esophageal reflux disease without esophagitis Hospital course: Ms. Craig is a 47 year old female. The patient was admitted with left lower quadrant abdominal paindeveloping in the last 24 hours preceding this admission. She had a similar problem a year ago, when she was diagnosed with acute diverticulitis of colon. She was not having any nausea or vomiting. She had normal urination. CT of abdomen and pelvis was done in the emergency department it showed evidence for sigmoid diverticulitis. The patient was started on nothing by mouth diet and IV fluids with Cipro/IV Flagyl. She quickly got better. On the very next day we advanced her diet to clears and her diabetic diet. She went home on the very next day. On discharge: She feels good. Her abdominal pain subsided. Denies nausea and vomiting. Denies chest pain. Denies difficulty breathing, coughing and wheezing. She has normal urination. She goes home. See discharge orders. - Time Spent with Patient Total time spent providing and/or coordinating discharge services: Greater than 30 minutes (40 minutes) - Discharge Medications Prescriptions: HYDROcodone/Acet 5/325 mg [[place] 5-325 mg] 1 tab PO Q6HR PRN 5 Days #15 tablet PRN Reason: Moderate Pain Ciprofloxacin [Cipro] 500 mg PO BID #16 tablet metroNIDAZOLE [Flagyl] 500 mg PO TID #24 tablet Home Medications: Amitriptyline [Elavil] 25 mg PO HS 11/06/17 [History] Fenofibrate Nanocrystallized [Triglide] 160 mg PO DAILY 11/06/17 [History] Gabapentin [Neurontin] 600 mg PO BID 11/06/17 [History] HydrOXYzine Pamoate [Vistaril] 50 mg PO Q6H PRN 11/06/17 [History] Lisinopril [Zestril] 5 mg PO DAILY 11/06/17 [History] Metformin HCl [Metformin HCl ER] 500 mg PO QPM 11/06/17 [History] OLANZapine [Zyprexa] 10 mg PO QAM 11/06/17 [History] OLANZapine [Zyprexa] 15 mg PO HS 11/06/17 [History] Omeprazole [PriLOSEC] 20 mg PO DAILY 11/06/17 [History] Propranolol [Inderal] 20 mg PO TID 11/06/17 [History] cloNIDine HCl [CloNIDine HCl] 0.1 mg PO BID 11/06/17 [History] clonazePAM [Klonopin] 0.5 mg PO TID PRN 11/06/17 [History] Ciprofloxacin [Cipro] 500 mg PO BID #16 tablet 11/08/17 [Rx] HYDROcodone/Acet 5/325 mg [[place] 5-325 mg] 1 tab PO Q6HR PRN 5 Days #15 tablet 11/08/17 [Rx] metroNIDAZOLE [Flagyl] 500 mg PO TID #24 tablet 11/08/17 [Rx] Allergies/Adverse Reactions: 3 Allergy/AdvReac Type Severity Reaction Status Date / Time aspirin Allergy Hives Verified 10/04/17 02:40 ibuprofen Allergy HIVES AND Verified 10/04/17 02:40 VOMITING Iodinated Contrast- Oral and Allergy Difficulty Verified 10/04/17 02:40 IV Dye Breathing ketorolac [From Toradol] Allergy Hives Verified 10/04/17 02:40 naproxen [From Naprosyn] Allergy Hives Verified 10/04/17 02:40 tramadol [From Ultram] Allergy Hives Verified 10/04/17 02:40 Date of admission: 11/06/17 09:25 Primary care physician: Constantino Larkin MD Consults: 11/06/17 11:11 Consult to Gastroenterology [CONS] Routine Consulting Provider: Gastroenterology Leeann Reason for Consult: recurrent diverticulitis Call Completed: Yes Discharging clinician: Yakov Mejia Anticipated date of discharge: 11/08/17 - Constitutional Vitals: Temp Pulse Resp BP Pulse Ox 99.9 F H 76 18 101/70 94 07/05/18 06:59 11/08/17 06:59 11/08/17 06:59 11/08/17 06:59 11/08/17 06:59 General appearance: Present: A&O X 3, pleasant, no acute distress - Respiratory Respiratory exam: Present: CTAB. Absent: accessory muscle use, rales, rhonchi, wheezes - Cardiovascular Cardiovascular exam: Present: RRR, +S1, +S2. Absent: diastolic murmur, gallop, rubs, systolic murmur - GI/Abdominal GI/Abdominal exam: Present: normal bowel sounds, soft, no peritoneal signs. Absent: distended, tenderness - Patient Status Disposition: Home, Self-Care Condition: Fair Functional capacity at discharge: independent ambulation Overall status at discharge: patient is progressing back to baseline - Discharge Instructions Instructions: Diverticulitis (DC) Follow Up With: Constantino Larkin MD [Primary Care Provider] - 11/14/17 9:30 am - Diet and Activity Activity: resume usual activities as tolerated - VTE Reasons for not Prescribing Prophylaxis: Treatment not Indicated - Low risk for VTE Deep Vein Thrombosis/Pulmonary Embolism Present on Admission: No
== END 2017-11-08 12:36 | disposition home or self-care (01) | DRG 244 ==
LOC: 3ANU 07:22 → EMEROO 07:22 → SUATTDRO 09:25 → OBSVTOIN 09:25 → 3ANU 10:18
PROVIDERS: ADMIT Student in an Organized Health Care Education/Training Program; ATTEND Internal Medicine

== ENCOUNTER 2017-12-28 14:26 | Observation (INO) ==
--- NOTE | 2017-12-28 15:45 | Emergency Department Note ---
Disposition Clinical Impression: Diverticulitis Abdominal pain Qualifiers: Abdominal location: left lower quadrant Qualified Code(s): R10.32 - Left lower quadrant pain Disposition: Admitted As Inpatient Condition: Fair Referrals: Constantino Larkin MD [Primary Care Provider] - Forms: ED Satisfaction Letter, Work/School Release Time of Disposition: 20:28 General Adult HPI - General Chief complaint: ED Abdominal Pain Stated complaint: Diverticulitis Time Seen by Provider: 12/28/17 15:22 Source: patient Limitations: no limitations Nursing Notes Reviewed: Yes Vital Signs Reviewed: Yes - History of Present Illness HPI Narrative: Pt complaining of LLQ abd pain that began this morning. She states that it has been intermittent for the past 2 weeks. She had a colonoscopy by Dr Patel 4 days ago. Nonconstant stabbing pain. Pt high temp 101. Pt reports that same type of abd pain and history of diverticulitis. States that she called Dr Patel and was told to come here for possible admission. She states that she is supposed to have a partial colectomy in the begining of Jan. patient is resting comfortably. She denies any shortness of breath or chest pain. She does report a chronic cough. States that she has had no episodes of vomiting but has been nauseated whenever the pain is intense. She is conversant with me and then has episodic pain. During the intervals were she is in pain she has doubled over holding her left lower quadrant. Patient does report red stools but is unsure if this is blood or Amelie-Aid as she states she drinks a large amount of red Amelie-Aid. Pain Scale: 9 - Related Data Home Medications Medication Instructions Recorded Confirmed Amitriptyline [Elavil] 25 mg PO HS 11/06/17 12/28/17 Fenofibrate Nanocrystallized 160 mg PO DAILY 11/06/17 12/28/17 [Triglide] Gabapentin [Neurontin] 600 mg PO BID 11/06/17 12/28/17 HydrOXYzine Pamoate [Vistaril] 50 mg PO Q6H PRN 11/06/17 12/28/17 Lisinopril [Zestril] 5 mg PO DAILY 11/06/17 12/28/17 Metformin HCl [Metformin HCl ER] 500 mg PO QPM 11/06/17 12/28/17 OLANZapine [Zyprexa] 10 mg PO QAM 11/06/17 12/28/17 OLANZapine [Zyprexa] 15 mg PO HS 11/06/17 12/28/17 Omeprazole [PriLOSEC] 20 mg PO DAILY 11/06/17 12/28/17 Propranolol [Inderal] 20 mg PO TID 11/06/17 12/28/17 cloNIDine HCl [CloNIDine HCl] 0.1 mg PO BID 11/06/17 12/28/17 clonazePAM [Klonopin] 0.5 mg PO TID PRN 11/06/17 12/28/17 Previous Rx's Medication Instructions Recorded Acetaminophen w/Cod 300-30 mg 1 each PO Q6HR 2 Days #8 tablet 12/27/17 [Tylenol w/Codeine #3] Allergies Allergy/AdvReac Type Severity Reaction Status Date / Time aspirin Allergy Hives Verified 12/14/17 15:17 ibuprofen Allergy HIVES AND Verified 12/14/17 15:17 VOMITING Iodinated Contrast- Oral and Allergy Difficulty Verified 12/14/17 15:17 IV Dye Breathing ketorolac [From Toradol] Allergy Hives Verified 12/14/17 15:17 naproxen [From Naprosyn] Allergy Hives Verified 12/14/17 15:17 tramadol [From Ultram] Allergy Hives Verified 12/14/17 15:17 All systems ED: reviewed and negative except as stated. Review of Systems: As Per HPI Constitutional: Reports: fever (high temp of 101), chills, night sweats ENT ED: Denies: congestion Cardiovascular: Denies: chest pain, palpitations, syncope Respiratory: Reports: cough (chronic). Denies: dyspnea, sputum production Gastrointestinal: Reports: abdominal pain, nausea (just when the pain is intense ), diarrhea (chronic), other (red stool, but not sure if its amelie aid). Denies : vomiting Genitourinary: Denies: urgency, dysuria, frequency, hematuria Musculoskeletal: Denies: back pain, neck pain Integumentary: Denies: rash Neurological: Denies: headache Past Medical History - Past Medical History Attestation: Yes The following information was validated with the patient. 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 - Social History Smoking Status: Current every day smoker Smokeless Tobacco Status: No Alcohol use: Reports: rarely Drug use: Reports: none Physical Exam - General Limitations: no limitations General appearance: alert, in no apparent distress - Head Head exam: atraumatic, normocephalic, normal inspection - Eye Eye exam: Present: normal appearance, PERRL, EOMI - ENT ENT exam: normal exam, normal oropharynx, mucous membranes moist - Neck Neck exam: Present: normal inspection, full ROM, trachea midline - Chest Chest inspection: Present: normal inspection, symmetric chest wall rise - Respiratory Respiratory exam: Present: normal lung sounds bilaterally. Absent: respiratory distress, accessory muscle use - Cardiovascular Cardiovascular exam: Present: regular rate, normal rhythm, normal heart sounds - Abdominal Exam Abdominal exam: Present: soft, tenderness. Absent: distention, guarding, rebound, rigidity, Lou's sign, Rovsing's sign, tenderness at McBurney's Point - Extremities Exam Extremities exam: Present: normal inspection, full ROM, normal capillary refill. Absent: tenderness, pedal edema - Back Exam Back exam: Present: normal inspection, full ROM. Absent: tenderness - Neurological Exam Neurological exam: Present: alert, oriented X3 - Psychiatric Psychiatric exam: Present: normal affect, normal mood - Skin Skin exam: Present: warm, dry, intact, normal color Course Course Narrative: Patient with a long-standing history of abdominal pain recently had a colonoscopy 4 days ago. States that she has had intermittent fevers. High temp of 101. Also reporting a red stool that she is unsure if this is Amelie aide or her blood. Was told to come to the ER per the PT by Dr Patel. Patient' s pain is intermittent. She is resting comfortably whenever I first come in and is very conversant laughing. However during the exam she doubles over and holds her left lower quadrant. Patient's vitals are stable. No fever here. We will provide patient with pain medication as well as blood sent. We will get a CT and basic labs on patient. - Reevaluation(s) Reevaluation #1: Pt has diverticulitis. She is also reporting her pain coming back at this time. We will provide the Pt with more pain medication and admit to the hospital. Pt does not believe that she will be able to control her symptoms at home. Time: 19:07 - Consultations Consultation #1: I spoke with Dr Patel. She advised that the Pt does have a follow up apt on Jan 09 to discusses further intervention. We discussed further evaluation of the patient and after Amanda was agreeable with lab workup and possible discharge to follow-up with her outpatient. She did not advised that the patient needed to be admitted for a colectomy as the patient had initially discussed. Time: 16:40 Consultation #2: Dr Davison accepted Pt in stable condition. Time: 19:57 Vital Signs Temperature 98.0 F 12/28/17 14:38 Pulse Rate 100 12/28/17 14:38 Respiratory Rate 16 12/28/17 14:38 Blood Pressure 115/86 12/28/17 14:38 O2 Sat by Pulse Oximetry 96 12/28/17 14:38 Temperature 98.0 F 12/28/17 15:31 Pulse Rate 84 12/28/17 19:59 Respiratory Rate 20 12/28/17 19:59 Blood Pressure 121/93 12/28/17 19:59 O2 Sat by Pulse Oximetry 94 12/28/17 19:59 Oxygen Delivery Oxygen Delivery Room Air Medical Decision Making - Medical Records Medical records reviewed: Yes I reviewed the patient's medical records. - Lab Data Lab results reviewed: Yes I reviewed the patient's lab results. Result diagrams: 12/28/17 16:24 12/28/17 16:24 Lab Results 12/28/17 12/28/17 12/28/17 Range/Units 16:24 16:24 19:32 WBC 9.9 (4.3-11.1) K/mcL RBC 4.72 (3.82-4.97) M/mcL Hgb 14.6 (11.5-15.4) g/dL Hct 43.5 (35.3-44.9) % MCV 92.2 (83.0-100.0) fL MCH 30.9 (28.0-33.3) pg MCHC 33.6 (31.6-35.5) g/dL RDW 15.3 H (11.5-14.5) % Plt Count 219 (140-400) K/mcL MPV 9.4 (9.4-12.4) fL Immature Gran % 0.5 (0-4) % Seg Neutrophils % 61.1 % Lymphocytes % 26.4 % Monocytes % 8.8 % Eosinophils % 2.8 % Basophils % 0.4 % Neutrophils # 6.1 (1.6-8.9) K/mcL Lymphocytes # 2.6 (0.6-4.6) K/mcL Monocytes # 0.9 (0.0-1.3) K/mcL Eosinophils # 0.3 (0.0-0.6) K/mcL Basophils # 0.0 (0.0-0.2) K/mcL Sodium 137 (136-145) mEq/L Potassium 3.6 (3.5-5.1) mEq/L Chloride 108 H (98-107) mEq/L Carbon Dioxide 25 (23-29) mEq/L BUN 15 (6-20) mg/dL Creatinine 0.66 (0.60-1.20) mg/dL Est GFR ( Amer) > 60 (> 60) Est GFR (Non-Af Amer) > 60 (> 60) BUN/Creatinine Ratio 23 (6-26) Glucose 107 H (70-105) mg/dL Calculated Osmolality 285 (280-300) Calcium 9.3 (8.6-10.3) mg/dL Urine Color Yellow (Yellow) Urine Clarity Clear (Clear) Urine pH 6.0 (5.0-8.0) pH Units Ur Specific [place] 1.027 H (1.010-1.025) Urine Protein Negative (Neg-Trace) mg/dL Urine Glucose (UA) Normal (Normal) mg/dL Urine Ketones Negative (Negative) mg/dL Urine Blood Negative (Negative) Urine Nitrite Negative (Negative) Urine Bilirubin Negative (Negative) Urine Urobilinogen Normal (Normal) mg/dL Ur Leukocyte Esterase Trace H (Negative) Urine Microscopic RBC 0-3 (0-3) per hpf Urine Microscopic WBC 3-5 H (0-3) per hpf Ur Squamous Epith Cells Many H (None-Few) per lpf Urine Bacteria Few (None-Few) per hpf Hyaline Casts None Seen (None-Few) per lpf Ur Culture Indicated? NO. A (NO) - Radiology Data Radiology results reviewed: Yes I reviewed the patient's radiology results. Abdomen/Pelvis CT 12/28/17 16:09 IMPRESSION: Uncomplicated diverticulitis at the splenic flexure. Hepatic steatosis. D/ / Delvin Banks / Delvin Banks Interpreting Provider: Delvin Banks Attestation Statement - Attestation Attestation: I, Morteza Jackson DO, examined this patient [id number] and my medical decision-making was reviewed with Dr. Kaycee Gutierrez, Resident Physician. I agree with the documented findings, disposition and treatment plan as described except to the extent set forth below. Please see my progress notes for details.
[2017-12-28] MEDS ORDERED: traMADol 50 MG TABLET PO STA (16:05)
[2017-12-28 16:36] LABS: Basophils % 0.4 %; Eosinophils # 0.3 K/mcL (0.0-0.6); Eosinophils % 2.8 %; Hematocrit 43.5 % (35.3-44.9); Hemoglobin 14.6 g/dL (11.5-15.4); Immature Granulocytes % 0.5 % (0-4); Lymphocytes # 2.6 K/mcL (0.6-4.6); Lymphocytes % 26.4 %; Mean Corpuscular HGB Conc 33.6 g/dL (31.6-35.5); Mean Corpuscular Hemoglobin 30.9 pg (28.0-33.3); Mean Corpuscular Volume 92.2 fL (83.0-100.0); Mean Platelet Volume 9.4 fL (9.4-12.4); Monocytes # 0.9 K/mcL (0.0-1.3); Monocytes % 8.8 %; Neutrophils # 6.1 K/mcL (1.6-8.9); Platelet Count 219 K/mcL (140-400); Red Blood Count 4.72 M/mcL (3.82-4.97); Red Cell Distribution Width 15.3 % (11.5-14.5); Segmented Neutrophils % 61.1 %
[2017-12-28] MEDS ORDERED: Hyoscyamine SL 0.125 MG TAB.SUBL SL STA (16:36)
[2017-12-28] MEDS ORDERED: Bacitracin OINT PKT TP STA (16:37)
[2017-12-28] MEDS ORDERED: *HR* FentaNYL (PF) 100 MCG/2 ML VIAL IVP ONE (16:37)
[2017-12-28 16:57] LABS: BUN/Creatinine Ratio 23 (6-26); Blood Urea Nitrogen 15 mg/dL (6-20); Calcium 9.3 mg/dL (8.6-10.3); Carbon Dioxide 25 mEq/L (23-29); Chloride 108 mEq/L (98-107); Glucose 107 mg/dL (70-105); Osmolality,Calculated 285 (280-300); Potassium 3.6 mEq/L (3.5-5.1); Sodium 137 mEq/L (136-145); eGFR For Non-African Americans > 60 (> 60)
--- NOTE | 2017-12-28 17:12 | Emergency Department Note ---
Disposition Clinical Impression: Diverticulitis, Abdominal pain Disposition: Admitted As Inpatient Condition: Fair Referrals: Constantino Larkin MD [Primary Care Provider] - Forms: ED Satisfaction Letter, Work/School Release Time of Disposition: 19:17 General Adult HPI - General Chief complaint: ED Abdominal Pain Stated complaint: Diverticulitis Time Seen by Provider: 12/28/17 15:22 Source: patient Limitations: no limitations - History of Present Illness Pain Scale: 9 - Related Data Home Medications Medication Instructions Recorded Confirmed Amitriptyline [Elavil] 25 mg PO HS 11/06/17 11/06/17 Fenofibrate Nanocrystallized 160 mg PO DAILY 11/06/17 11/06/17 [Triglide] Gabapentin [Neurontin] 600 mg PO BID 11/06/17 11/06/17 HydrOXYzine Pamoate [Vistaril] 50 mg PO Q6H PRN 11/06/17 11/06/17 Lisinopril [Zestril] 5 mg PO DAILY 11/06/17 11/06/17 Metformin HCl [Metformin HCl ER] 500 mg PO QPM 11/06/17 11/06/17 OLANZapine [Zyprexa] 10 mg PO QAM 11/06/17 11/06/17 OLANZapine [Zyprexa] 15 mg PO HS 11/06/17 11/06/17 Omeprazole [PriLOSEC] 20 mg PO DAILY 11/06/17 11/06/17 Propranolol [Inderal] 20 mg PO TID 11/06/17 11/06/17 cloNIDine HCl [CloNIDine HCl] 0.1 mg PO BID 11/06/17 11/06/17 clonazePAM [Klonopin] 0.5 mg PO TID PRN 11/06/17 11/06/17 Previous Rx's Medication Instructions Recorded Dicyclomine [Bentyl] 20 mg IM Q6HR PRN #20 ampul 11/29/17 Lidocaine 1 each TP QDPC PRN #14 adh..patch 12/09/17 Acetaminophen w/Cod 300-30 mg 1 each PO Q8HR PRN 3 Days #10 12/14/17 [Tylenol w/Codeine #3] tablet Amoxicillin/Clavulanate [Augmentin] 875 mg PO BID #14 tablet 12/14/17 Acetaminophen w/Cod 300-30 mg 1 each PO Q6HR 2 Days #8 tablet 12/27/17 [Tylenol w/Codeine #3] Bacitracin OINT [Ak-Tracin] 1 appl TP BID #1 tube 12/27/17 Allergies Allergy/AdvReac Type Severity Reaction Status Date / Time aspirin Allergy Hives Verified 12/14/17 15:17 ibuprofen Allergy HIVES AND Verified 12/14/17 15:17 VOMITING Iodinated Contrast- Oral and Allergy Difficulty Verified 12/14/17 15:17 IV Dye Breathing ketorolac [From Toradol] Allergy Hives Verified 12/14/17 15:17 naproxen [From Naprosyn] Allergy Hives Verified 12/14/17 15:17 tramadol [From Ultram] Allergy Hives Verified 12/14/17 15:17 Constitutional: Reports: fever (high temp of 101), chills, night sweats ENT ED: Denies: congestion Cardiovascular: Denies: chest pain, palpitations, syncope Respiratory: Reports: cough (chronic). Denies: dyspnea, sputum production Gastrointestinal: Reports: abdominal pain, nausea (just when the pain is intense ), diarrhea (chronic), other (red stool, but not sure if its amelie aid). 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 - Social History Smoking Status: Current every day smoker Smokeless Tobacco Status: No Alcohol use: Reports: rarely Drug use: Reports: none Physical Exam - General Limitations: no limitations General appearance: alert, in no apparent distress Course Vital Signs Temperature 98.0 F 12/28/17 14:38 Pulse Rate 100 12/28/17 14:38 Respiratory Rate 16 12/28/17 14:38 Blood Pressure 115/86 12/28/17 14:38 O2 Sat by Pulse Oximetry 96 12/28/17 14:38 Temperature 98.0 F 12/28/17 15:31 Pulse Rate 100 12/28/17 15:31 Respiratory Rate 16 12/28/17 15:31 Blood Pressure 115/86 12/28/17 15:31 O2 Sat by Pulse Oximetry 96 12/28/17 15:31 Oxygen Delivery Oxygen Delivery Room Air Medical Decision Making - Lab Data Result diagrams: 12/28/17 16:24 12/28/17 16:24 Lab Results 12/28/17 12/28/17 Range/Units 16:24 16:24 WBC 9.9 (4.3-11.1) K/mcL RBC 4.72 (3.82-4.97) M/mcL Hgb 14.6 (11.5-15.4) g/dL Hct 43.5 (35.3-44.9) % MCV 92.2 (83.0-100.0) fL MCH 30.9 (28.0-33.3) pg MCHC 33.6 (31.6-35.5) g/dL RDW 15.3 H (11.5-14.5) % Plt Count 219 (140-400) K/mcL MPV 9.4 (9.4-12.4) fL Immature Gran % 0.5 (0-4) % Seg Neutrophils % 61.1 % Lymphocytes % 26.4 % Monocytes % 8.8 % Eosinophils % 2.8 % Basophils % 0.4 % Neutrophils # 6.1 (1.6-8.9) K/mcL Lymphocytes # 2.6 (0.6-4.6) K/mcL Monocytes # 0.9 (0.0-1.3) K/mcL Eosinophils # 0.3 (0.0-0.6) K/mcL Basophils # 0.0 (0.0-0.2) K/mcL Sodium 137 (136-145) mEq/L Potassium 3.6 (3.5-5.1) mEq/L Chloride 108 H (98-107) mEq/L Carbon Dioxide 25 (23-29) mEq/L BUN 15 (6-20) mg/dL Creatinine 0.66 (0.60-1.20) mg/dL Est GFR ( Amer) > 60 (> 60) Est GFR (Non-Af Amer) > 60 (> 60) BUN/Creatinine Ratio 23 (6-26) Glucose 107 H (70-105) mg/dL Calculated Osmolality 285 (280-300) Calcium 9.3 (8.6-10.3) mg/dL Attestation Statement - Attestation Attestation: I, Morteza Jackson DO, examined this patient [id number] and my medical decision-making was reviewed with Dr. Kaycee Gutierrez, Resident Physician. I agree with the documented findings, disposition and treatment plan as described except to the extent set forth below. Please see my progress notes for details. 47-year-old female presents emergency room the left lower quadrant abdominal pain. Patient is a long-standing history of diverticular disease and is been seen multiple times in this facility with multiple CT scans completed for this evaluation. Based on review of the charting system she has had approximately 50 + CTs over the last 2 years for evaluation of diverticular disease. She did have a colonoscopy completed less than 2 weeks ago did show [place] diverticular presentation the colon. According to her description she was advised I therefore symptomatically control home or possible colectomy. Patient is currently denying chest pain shortness of breath headache vision changes nausea vomiting his she has had intermittent diarrhea with no blood in her stool at this time. Denies any specific fevers or chills. Her main complaint is pain. Patient has been seen by myself multiple times for similar presentation this appears to bed identical to all the other exacerbations. She will have screening evaluation completed here today with CBC chemistry urinalysis and CT imaging of the abdomen along with pain medication to be provided. Consultation will be placed out with the surgeon who did evaluate the patient outpatient setting for their recommendations considering there does appear to be some confounding information is done recommendations and what the patient is describing. Currently she is otherwise clinically stable. We will continue to monitor his symptomatic control is appreciated antibiotic regimen will be started if appropriate. Imaging modalities will be completed. See detailed documentation of the physical exam, medical intervention, medical decision-making and disposition the resident physician's note. No focal care pad the patient's treatment course at this time. 1900 Patient is found to have diverticulitis that extends all the way up to the splenic flexure. Patient is requesting to be admitted at this time considering she has had poor treatment in the outpatient setting multiple different times this point. Patient is otherwise clinically stable. IV antibiotics have been provided along with pain medication.
[2017-12-28] MEDS ORDERED: MetroNIDAZOLE 500 MG/100 ML 500 MG/100 ML BAG IVPB ONE (18:55)
[2017-12-28] MEDS ORDERED: *HR* Nalbuphine 10 MG/ML AMPUL IV STA ×2 (19:06→21:29)
[2017-12-28 19:42] LABS: Bilirubin,Urine Negative (Negative); Blood,Urine Negative (Negative); Clarity,Urine Clear (Clear); Color,Urine Yellow (Yellow); Glucose,Urine (UA) Normal (Normal); Ketones,Urine Negative (Negative); Leukocyte Esterase,Urine Trace (Negative); Nitrite,Urine Negative (Negative); Protein,Urine Negative (Neg-Trace); Specific Gravity,Urine 1.027 (1.010-1.025); Urobilinogen,Urine Normal (Normal)
[2017-12-28 19:44] LABS: Bacteria,Urine Few per hpf (None-Few); Hyaline Casts,Urine None Seen per lpf (None-Few); RBC,Urine 0-3 per hpf (0-3); Squamous Epithelial Cell,Urine Many per lpf (None-Few)
[2017-12-29] MEDS ORDERED: Naloxone 0.4 MG/ML INJ IVP PRN (00:31)
[2017-12-29] MEDS ORDERED: 0.9 % Sodium Chloride 1,000 ML IVC SCH (00:45)
--- NOTE | 2017-12-29 01:29 | Internal Med History&Physical ---
Date of Encounter: 12/29/17 Time of Encounter: 01:25 Internal Medicine - H&P: HPI Chief complaint: LLQ Pain History of present illness: Ms. Craig is a 47 year old female with a past medical history of COPD, diabetes , hypertension, hyperlipidemia and diverticulosis who presents with acute onset left lower quadrant pain which began early this morning. Patient reportedly has multiple admissions in the past for acute diverticulitis. Patient was seen by engineer first assistant and underwent a colonoscopy this past Sunday confirming findings of diverticulosis. Patient has a follow-up appointment on the to discuss surgical options. With regard to this resident Tatian, she states that she woke up early this morning and began having 10 out of 10 left lower quadrant pain that was nonradiating. No specific aggravating factors. Alleviated by curling up into a ball. Patient states that she has been drinking Pete-Aid yesterday but is unsure if she has seen any blood in her stool. Patient has chronic diarrhea and reports 12 episodes since yesterday. Patient has had her gallbladder removed. Patient otherwise denies any fever, chills, nausea, vomiting, chest pain, shortness of breath. Past Med Surg Social Fam HX - Past Medical History Medical history: asthma, COPD, CVA, diabetes, hyperlipidemia, hypertension, other Additional medical history: sleep apnea, Psychiatric history: anxiety, bipolar, depression - Past Surgical History Surgical History: appendectomy, , cholecystectomy, herniorrhaphy, hysterectomy, sinus surgery, other Additional surgical history: brain tumor removal, - Social History Smoking Status: Current every day smoker Packs per day: 1/2 Smokeless Tobacco Status: No Alcohol use: rarely Drug use: none - Family History Father Hx Family Cancer: Yes Mother Living Status: Hx Family Cardiac Disorders: No Hx Family Respiratory Disorders: No Hx Family Cancer: Yes (colon cancer) Hx Family GI Disorders: No Hx Family Endocrine Disorder: No Hx Family Neuromuscular Disorders: No Hx Family Neurologic Disorders: No Hx Family HEENT Disorders: No Hx Family Autoimmune Disorders: No Internal Medicine - H&P: Meds Amitriptyline [Elavil] 25 mg PO HS 11/06/17 [History] Fenofibrate Nanocrystallized [Triglide] 160 mg PO DAILY 11/06/17 [History] Gabapentin [Neurontin] 600 mg PO BID 11/06/17 [History] HydrOXYzine Pamoate [Vistaril] 50 mg PO Q6H PRN 11/06/17 [History] Lisinopril [Zestril] 5 mg PO DAILY 11/06/17 [History] Metformin HCl [Metformin HCl ER] 500 mg PO QPM 11/06/17 [History] OLANZapine [Zyprexa] 10 mg PO QAM 11/06/17 [History] OLANZapine [Zyprexa] 15 mg PO HS 11/06/17 [History] Omeprazole [PriLOSEC] 20 mg PO DAILY 11/06/17 [History] Propranolol [Inderal] 20 mg PO TID 11/06/17 [History] cloNIDine HCl [CloNIDine HCl] 0.1 mg PO BID 11/06/17 [History] clonazePAM [Klonopin] 0.5 mg PO TID PRN 11/06/17 [History] Acetaminophen w/Cod 300-30 mg [Tylenol w/Codeine #3] 1 each PO Q6HR 2 Days #8 tablet 12/27/17 [Rx] 3 Allergy/AdvReac Type Severity Reaction Status Date / Time aspirin Allergy Hives Verified 12/14/17 15:17 ibuprofen Allergy HIVES AND Verified 12/14/17 15:17 VOMITING Iodinated Contrast- Oral and Allergy Difficulty Verified 12/14/17 15:17 IV Dye Breathing ketorolac [From Toradol] Allergy Hives Verified 12/14/17 15:17 naproxen [From Naprosyn] Allergy Hives Verified 12/14/17 15:17 tramadol [From Ultram] Allergy Hives Verified 12/14/17 15:17 All Systems PM: A 10-system review of systems was performed and is negative for pertinent findings except as documented above in the HPI. - Constitutional Constitutional: no chills, no fever(s), no night sweats - EENT Eyes: no change in vision, no discharge, no pain, no photophobia Ears: no ear discharge, no ear pain, no tinnitus Nose, mouth and throat: no dysphagia, no nasal discharge, no neck pain, no sore throat - Cardiovascular Cardiovascular ROS IM: no chest pain, no diaphoresis, no dyspnea, no lightheadedness, no palpitations, no syncope - Respiratory Respiratory: no cough, no dyspnea, no wheezing, no excessive phlegm production - Gastrointestinal Gastrointestinal: no abdominal pain, no diarrhea, no hematemesis, no hematochezia, no melena, no nausea, no vomiting - Genitourinary Genitourinary: no change in urinary stream, no dysuria, no flank pain, no hematuria - Musculoskeletal Musculoskeletal ROS IM: no numbness, no tingling - Integumentary Integumentary IM: no rash, no unusual bruising - Neurological Neurological ROS: no confusion, no convulsions, no focal weakness, no numbness, no tingling, no tremor(s) - Hematologic/Lymphatic Hematologic/Lymphatic: no easy bruising - Constitutional Vitals: Temp Pulse Resp BP Pulse Ox 97.7 F 90 16 121/76 98 12/28/17 23:42 12/28/17 23:42 12/28/17 23:42 12/28/17 23:42 12/28/17 23:42 Exam: General: Alert and oriented 3. Lying in bed in no acute distress however requesting pain medication Skin:Normal color, no rash, no lesions. HEENT:EOM, pupils equal, round and reactive. Cardiovascular:Normal S1 & S2, no rubs, murmurs or gallops. No JVD. Pulse regular. Lungs:Normal breath sounds, no wheezes or crackles. Abdomen:Soft, tenderness to palpation in the left lower quadrant. No rebound or rigidity. Extremities:No deformity, no edema or tenderness, no joint swelling or clubbing. Neurological:Normal cognition and motor skills. Pulses:Carotid and radial pulses normal +2. Rest of the physical exam is non contributory Internal Med - H&P Results - Labs CBC & Chem 7: 12/29/17 03:12 12/29/17 03:12 - Assessment and plan (1) Acute diverticulitis Current Visit: No Status: Acute Assessment and plan: CT of the abdomen consistent with clinical presentation of acute uncomplicated diverticulitis. Patient does not appear septic, no fever no elevated white count. Continue IV antibiotics. Nothing by mouth and pain management. Patient has follow-up appointment with surgery on the for further evaluation and treatment options of her diverticulosis (2) COPD (chronic obstructive pulmonary disease) Current Visit: No Status: Chronic Assessment and plan: Stable. No evidence of acute exacerbation. Qualifiers: COPD type: unspecified COPD Qualified Code(s): J44.9 - Chronic obstructive pulmonary disease, unspecified (3) Hypertension Current Visit: No Status: Chronic Assessment and plan: Blood pressure stable. Resume home antihypertensives. Qualifiers: Hypertension type: essential hypertension Qualified Code(s): I10 - Essential (primary) hypertension (4) Type 2 diabetes mellitus Current Visit: No Status: Chronic Assessment and plan: Blood glucose checks. Insulin sliding scale. 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
[2017-12-29] MEDS: OXYCODONE Oral CONC 10 MG/0.5 ML ORAL.SYG SL PRN ×4 (01:42→22:51)
[2017-12-29 03:31] LABS: Hematocrit 42.5 % (35.3-44.9); Mean Corpuscular HGB Conc 32.9 g/dL (31.6-35.5); Mean Corpuscular Hemoglobin 30.2 pg (28.0-33.3); Mean Corpuscular Volume 91.8 fL (83.0-100.0); Mean Platelet Volume 9.4 fL (9.4-12.4); Platelet Count 193 K/mcL (140-400); Red Blood Count 4.63 M/mcL (3.82-4.97); Red Cell Distribution Width 15.4 % (11.5-14.5)
[2017-12-29 03:49] LABS: Alanine Aminotransferase 12 Units/L (7-52); Albumin/Globulin Ratio 1.8 (1.1-2.2); Alkaline Phosphatase 58 Units/L (34-104); Aspartate Amino Transferase 13 Units/L (13-39); BUN/Creatinine Ratio 22 (6-26); Bilirubin,Total 0.2 mg/dL (0.3-1.0); Blood Urea Nitrogen 13 mg/dL (6-20); Carbon Dioxide 24 mEq/L (23-29); Chloride 111 mEq/L (98-107); Globulin 2.2 g/dL (2.4-3.5); Glucose 116 mg/dL (70-105); Osmolality,Calculated 293 (280-300); Potassium 3.9 mEq/L (3.5-5.1); Sodium 141 mEq/L (136-145); Total Protein 6.2 g/dL (6.4-8.9); eGFR For Non-African Americans > 60 (> 60)
[2017-12-29] MEDS: *HR* Acetaminophen w/Cod 300-30 mg 1 TAB TABLET PO PRN ×3 (04:05→19:52)
[2017-12-29] MEDS: clonazePAM 0.5 MG TABLET PO PRN (05:17)
[2017-12-29] MEDS: MetroNIDAZOLE 500 MG/100 ML 500 MG/100 ML BAG IVPB SCH ×4 (05:17→22:56)
[2017-12-29] MEDS: OLANZapine 10 MG TAB.RAPDIS PO SCH (08:26)
[2017-12-29] MEDS: cloNIDine HCl 0.1 MG TABLET PO SCH ×2 (08:26→19:53)
[2017-12-29] MEDS: Fenofibrate 54 MG TABLET PO SCH (08:26)
[2017-12-29] MEDS: Gabapentin 300 MG CAPSULE PO SCH ×2 (08:26→19:53)
--- NOTE | 2017-12-29 14:45 | Internal Med Progress Note ---
Hospitalist Progress Note - Encounter Date of Encounter: 12/29/17 Time of Encounter: 14:42 - Subjective Interval History: 43-year-old female past medical history of COPD, diabetes, hypertension, hyperlipidemia and multiple episode of diverticulitis. Presented to the hospital due to left lower quadrant abdominal pain. CT of the abdomen and pelvis diagnostic for uncomplicated diverticulitis of the splenic flexure. Patient seen today still refers left lower quadrant abdominal pain, but reports that the pain has improved when compared with yesterday. Denies nausea, vomiting, denies blood in her urine or stool. No fevers or chills. - Exam Vitals: Temp Pulse Resp BP Pulse Ox 98 F 76 16 130/81 92 12/29/17 11:57 12/29/17 11:57 12/29/17 11:57 12/29/17 11:57 12/29/17 11:57 Exam: General: Alert and oriented Skin:Normal color, no rash, no lesions. HEENT:EOM, pupils equal, round and reactive. Cardiovascular:Normal S1 & S2, no rubs, murmurs or gallops. No JVD. Pulse regular. Lungs: Expiratory wheezes, no crackles. Abdomen:Soft, mildly tender to palpation in the left lower quadrant, no rigidity. mid-umbilical scar Extremities: No deformity, no edema or tenderness, no joint swelling or clubbing. Neurological:Normal cognition and motor skills. Rest of the physical exam is non contributory - Assessment and Plan (1) Acute diverticulitis Current Visit: No Status: Acute Assessment and Plan: CT/CT abd pelvis wo no iv no oral IMPRESSION: Uncomplicated diverticulitis at the splenic flexure. Plan: - Continue Cipro and Flagyl. - Patient with a third episode of complicated diverticulitis. If pain does not improve will consider surgical evaluation - Oxycodone 5 mg sublingual for Pain control - Full liquid diet (2) COPD (chronic obstructive pulmonary disease) Current Visit: No Status: Chronic Assessment and Plan: Mild expiratory wheezings, Plan: - Duo-Nebs Q6RT as needed (3) Hypertension Current Visit: No Status: Chronic Assessment and Plan: Blood pressure well controlled Plan: - On lisinopril 5 mg daily - Continue Clonidine 0.1mg TID (4) Type 2 diabetes mellitus Current Visit: No Status: Chronic Assessment and Plan: Well controlled. Plan: - Lispro sliding scale (5) Hyperlipidemia Current Visit: Yes Status: Acute Assessment and Plan: Plan: - Continue home medications (6) Bipolar depression Current Visit: Yes Status: Acute Assessment and Plan: Plan: - Continue Olanzapine 10mg PO QAM DVT Prophylaxis: Plan: - Chemical DVT prophylaxis with Heparin 5000 unit SubQ Q12HRs - Time Spent with Patient Total time spent is greater than 50% in coordination of care (as documented) at patient's floor/unit and/or counseling patient: Greater than 35 minutes Plan of Care Discussed with: patient Internal Medicine: Result - Labs CBC & Chem 7: 12/29/17 03:12 12/29/17 03:12 Labs: Short CBC 12/29/17 Range/Units 03:12 WBC 7.9 (4.3-11.1) K/mcL Hgb 14.0 (11.5-15.4) g/dL Hct 42.5 (35.3-44.9) % Plt Count 193 (140-400) K/mcL BMP 12/29/17 03:12 Sodium 141 Potassium 3.9 Chloride 111 H Carbon Dioxide 24 BUN 13 Creatinine 0.60 Glucose 116 H Calcium 9.0 Liver Function 12/29/17 Range/Units 03:12 Total Bilirubin 0.2 L (0.3-1.0) mg/dL AST 13 (13-39) Units/L ALT 12 (7-52) Units/L Alkaline Phosphatase 58 (34-104) Units/L Albumin 4.0 (3.5-5.7) g/dL Consult Discharge Plan - Plan Referrals: Constantino Larkin MD [Primary Care Provider] - (2) COPD (chronic obstructive pulmonary disease) Qualifiers: COPD type: unspecified COPD Qualified Code(s): J44.9 - Chronic obstructive pulmonary disease, unspecified (3) Hypertension Qualifiers: Hypertension type: essential hypertension Qualified Code(s): I10 - Essential (primary) hypertension (4) Type 2 diabetes mellitus Qualifiers: Diabetes mellitus detention insulin use: without detention use Diabetes mellitus complication status: without complication Qualified Code(s): E11.9 - Type 2 diabetes mellitus without complications (5) Hyperlipidemia Qualifiers: Hyperlipidemia type: unspecified Qualified Code(s): E78.5 - Hyperlipidemia, unspecified
[2017-12-29] MEDS ORDERED: Ipratropium/Albuterol Neb 3 ML IH PRN (14:50)
[2017-12-29] MEDS: *HR* Heparin 5,000 UNIT/ML VIAL SQ SCH (17:41)
[2017-12-30] MEDS: *HR* Acetaminophen w/Cod 300-30 mg 1 TAB TABLET PO PRN ×3 (02:11→22:12)
[2017-12-30] MEDS: *HR* Heparin 5,000 UNIT/ML VIAL SQ SCH ×2 (05:10→17:37)
[2017-12-30] MEDS: MetroNIDAZOLE 500 MG/100 ML 500 MG/100 ML BAG IVPB SCH ×2 (05:11→12:23)
[2017-12-30] MEDS: OXYCODONE Oral CONC 10 MG/0.5 ML ORAL.SYG SL PRN ×3 (05:12→19:39)
[2017-12-30 07:24] LABS: Basophils # 0.1 K/mcL (0.0-0.2); Basophils % 0.8 %; Eosinophils # 0.3 K/mcL (0.0-0.6); Eosinophils % 4.2 %; Hematocrit 41.8 % (35.3-44.9); Hemoglobin 13.8 g/dL (11.5-15.4); Immature Granulocytes % 0.5 % (0-4); Lymphocytes # 2.1 K/mcL (0.6-4.6); Lymphocytes % 32.5 %; Mean Corpuscular Hemoglobin 30.6 pg (28.0-33.3); Mean Corpuscular Volume 92.7 fL (83.0-100.0); Mean Platelet Volume 9.4 fL (9.4-12.4); Monocytes # 0.7 K/mcL (0.0-1.3); Monocytes % 10.4 %; Neutrophils # 3.3 K/mcL (1.6-8.9); Platelet Count 193 K/mcL (140-400); Red Blood Count 4.51 M/mcL (3.82-4.97); Red Cell Distribution Width 14.8 % (11.5-14.5); Segmented Neutrophils % 51.6 %
[2017-12-30 07:44] LABS: BUN/Creatinine Ratio 8 (6-26); Blood Urea Nitrogen 5 mg/dL (6-20); Calcium 9.2 mg/dL (8.6-10.3); Carbon Dioxide 25 mEq/L (23-29); Chloride 107 mEq/L (98-107); Glucose 122 mg/dL (70-105); Osmolality,Calculated 285 (280-300); Potassium 3.9 mEq/L (3.5-5.1); Sodium 138 mEq/L (136-145); eGFR For Non-African Americans > 60 (> 60)
[2017-12-30] MEDS: OLANZapine 10 MG TAB.RAPDIS PO SCH (08:21)
[2017-12-30] MEDS: cloNIDine HCl 0.1 MG TABLET PO SCH ×2 (08:21→21:34)
[2017-12-30] MEDS: Gabapentin 300 MG CAPSULE PO SCH ×2 (08:21→21:34)
[2017-12-30] MEDS: Fenofibrate 54 MG TABLET PO SCH (08:21)
--- NOTE | 2017-12-30 08:22 | Internal Med Progress Note ---
Hospitalist Progress Note - Encounter Date of Encounter: 12/30/17 Time of Encounter: 08:20 - Subjective Interval History: Patient evaluated at bedside. Today she reports significant 8/10 left lower quadrant tenderness, denies fever, chills, nausea, vomiting, or blood in the stool. Patient tolerating full liquid diet. - Exam Vitals: Temp Pulse Resp BP Pulse Ox 97.7 F 80 17 116/91 96 12/30/17 07:19 12/30/17 07:19 12/30/17 07:19 12/30/17 07:19 12/30/17 07:19 Exam: General: Alert and oriented, mild distress due to pain Skin:Normal color, no rash, no lesions. HEENT:EOM, pupils equal, round and reactive. Cardiovascular:Normal S1 & S2, no rubs, murmurs or gallops. No JVD. Pulse regular. Lungs: Clear to auscultation bilaterally, no crackles. Abdomen:Soft, moderate tenderness to palpation in the left lower quadrant, no rigidity or guarding. mid-umbilical scar Extremities: No deformity, no edema or tenderness, no joint swelling or clubbing. Neurological:Normal cognition and motor skills. Rest of the physical exam is non contributory - Assessment and Plan (1) Acute diverticulitis Current Visit: No Status: Acute Assessment and Plan: CT/CT abd pelvis wo no iv no oral IMPRESSION: Uncomplicated diverticulitis at the splenic flexure. Plan: - Continue Cipro and Flagyl. - Surgical consult, patient has had 5 episodes of diverticulitis in the past 2 years. - As per patient she had a colonoscopy done on Sunday by Dr. Fountain - Oxycodone 5 mg sublingual for Pain control - Full liquid diet (2) COPD (chronic obstructive pulmonary disease) Current Visit: No Status: Chronic Assessment and Plan: Clear lung to auscultation. Plan: - Continue nebs when necessary (3) Hypertension Current Visit: No Status: Chronic Assessment and Plan: Blood pressure controlled. Plan: - Continue lisinopril 5 mg by mouth daily, and clonidine 0.1 mg by mouth twice a day - We will monitor for adjustment if needed (4) Type 2 diabetes mellitus Current Visit: No Status: Chronic Assessment and Plan: On metformin. Plan: - Low-dose Levemir 5 mg at bedtime - Lispro sliding scale - Accu-Chek before meals at bedtime (5) Hyperlipidemia Current Visit: Yes Status: Acute Assessment and Plan: Plan: - Continue lipid-lowering medications (6) Bipolar depression Current Visit: Yes Status: Acute Assessment and Plan: Plan: - Continue Olanzapine 10mg PO QAM DVT Prophylaxis: Chemical DVT prophylaxis with heparin 5000 subcutaneous units every 12 hours - Time Spent with Patient Total time spent is greater than 50% in coordination of care (as documented) at patient's floor/unit and/or counseling patient: Greater than 35 minutes Plan of Care Discussed with: patient Internal Medicine: Result - Labs CBC & Chem 7: 12/30/17 07:05 12/30/17 07:05 Labs: Short CBC 12/30/17 Range/Units 07:05 WBC 6.4 (4.3-11.1) K/mcL Hgb 13.8 (11.5-15.4) g/dL Hct 41.8 (35.3-44.9) % Plt Count 193 (140-400) K/mcL Neutrophils # 3.3 (1.6-8.9) K/mcL BMP 12/30/17 07:05 Sodium 138 Potassium 3.9 Chloride 107 Carbon Dioxide 25 BUN 5 L Creatinine 0.64 Glucose 122 H Calcium 9.2 Consult Discharge Plan - Plan Referrals: Constantino Larkin MD [Primary Care Provider] - (2) COPD (chronic obstructive pulmonary disease) Qualifiers: COPD type: unspecified COPD Qualified Code(s): J44.9 - Chronic obstructive pulmonary disease, unspecified (3) Hypertension Qualifiers: Hypertension type: essential hypertension Qualified Code(s): I10 - Essential (primary) hypertension (4) Type 2 diabetes mellitus Qualifiers: Diabetes mellitus director long term care insulin use: without mcfp use Diabetes mellitus complication status: without complication Qualified Code(s): E11.9 - Type 2 diabetes mellitus without complications (5) Hyperlipidemia Qualifiers: Hyperlipidemia type: unspecified Qualified Code(s): E78.5 - Hyperlipidemia, unspecified
[2017-12-30] MEDS: clonazePAM 0.5 MG TABLET PO PRN (08:28)
[2017-12-30] MEDS ORDERED: Dextrose Gel 15 GM/37.5 ML TUBE PO PRN ×2 (08:34)
[2017-12-30] MEDS ORDERED: D5% in Water 1,000 ML IVC PRN (08:34)
[2017-12-30] MEDS ORDERED: *HR* Dextrose 50 % in Water (Syg) 50 ML SYRINGE IVP PRN (08:34)
[2017-12-30] MEDS: metroNIDAZOLE 500 MG TABLET PO SCH ×2 (15:48→21:34)
[2017-12-30] MEDS ORDERED: Insulin DETEMIR 100 UNIT/ML X5UNITS SQ SCH (21:00)
[2017-12-31] MEDS: OXYCODONE Oral CONC 10 MG/0.5 ML ORAL.SYG SL PRN ×2 (01:40→08:17)
[2017-12-31] MEDS: *HR* Acetaminophen w/Cod 300-30 mg 1 TAB TABLET PO PRN (04:31)
[2017-12-31] MEDS: *HR* Heparin 5,000 UNIT/ML VIAL SQ SCH (05:39)
[2017-12-31 07:48] LABS: Estimated Average Glucose 126 mg/dl
[2017-12-31] MEDS: cloNIDine HCl 0.1 MG TABLET PO SCH (08:05)
[2017-12-31] MEDS: metroNIDAZOLE 500 MG TABLET PO SCH (08:17)
[2017-12-31] MEDS: OLANZapine 10 MG TAB.RAPDIS PO SCH (08:17)
[2017-12-31] MEDS: Gabapentin 300 MG CAPSULE PO SCH (08:17)
[2017-12-31] MEDS: clonazePAM 0.5 MG TABLET PO PRN (08:17)
[2017-12-31] MEDS: Fenofibrate 54 MG TABLET PO SCH (08:17)
[2017-12-31 10:57] VITALS: BP 105/70
--- NOTE | 2017-12-31 11:22 | Discharge Summary ---
- NOTES TO OUTPATIENT PROVIDER Notes to Outpatient Provider: The patient has an appointment to follow-up with Dr. Fountain in a week. Orders not resulted at time of discharge: Pending orders 12/30/17 07:27 BMP [Basic Metabolic Panel] Routine Date of Encounter: 12/31/17 Time of Encounter: 11:21 - Discharge Diagnosis (1) Acute diverticulitis Priority: Primary Status: Acute Assessment and Plan: CT/CT abd pelvis wo no iv no oral IMPRESSION: Uncomplicated diverticulitis at the splenic flexure. 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 Craig is a 47 year old female past medical history significant for COPD, diabetes, hypertension, hyperlipidemia and diverticulosis. Patient presented to the emergency room complaining of left lower quadrant abdominal pain. As part of the workup CT of the abdomen and pelvis was done, resulted as uncomplicated diverticulitis. Patient treated with by mouth antibiotics and IV fluid. Patient has been tolerating regular diet. Left lower quadrant abdominal pain has improved significantly. Patient is hemodynamically stable, afebrile, no blood in the stool. Patient has been followed by a surgeon in the outpatient settings. Patient recommended to follow-up with the surgeon within a week. To continue taking by mouth antibiotics for 5 more days. Discharge discussed with: patient - Time Spent with Patient Total time spent providing and/or coordinating discharge services: Greater than 30 minutes - Discharge Medications Prescriptions: Ciprofloxacin [Cipro] 500 mg PO BID 5 Days #10 tablet metroNIDAZOLE [Flagyl] 500 mg PO TID 5 Days #15 tablet Home Medications: Amitriptyline [Elavil] 25 mg PO HS 11/06/17 [History] Fenofibrate Nanocrystallized [Triglide] 160 mg PO DAILY 11/06/17 [History] Gabapentin [Neurontin] 600 mg PO BID 11/06/17 [History] HydrOXYzine Pamoate [Vistaril] 50 mg PO Q6H PRN 11/06/17 [History] Lisinopril [Zestril] 5 mg PO DAILY 11/06/17 [History] Metformin HCl [Metformin HCl ER] 500 mg PO QPM 11/06/17 [History] OLANZapine [Zyprexa] 10 mg PO QAM 11/06/17 [History] OLANZapine [Zyprexa] 15 mg PO HS 11/06/17 [History] Omeprazole [PriLOSEC] 20 mg PO DAILY 11/06/17 [History] Propranolol [Inderal] 20 mg PO TID 11/06/17 [History] cloNIDine HCl [CloNIDine HCl] 0.1 mg PO BID 11/06/17 [History] clonazePAM [Klonopin] 0.5 mg PO TID PRN 11/06/17 [History] Acetaminophen w/Cod 300-30 mg [Tylenol w/Codeine #3] 1 each PO Q6HR 2 Days #8 tablet 12/27/17 [Rx] Albuterol Sulfate [Proair Hfa] 2 puff IH Q4H PRN 12/31/17 [History] Budesonide/Formoterol 160/4.5 [Symbicort 160/4.5] 2 puff IH BIDR inhaler [Rx] Ciprofloxacin [Cipro] 500 mg PO BID 5 Days #10 tablet 12/31/17 [Rx] Ipratropium/Albuterol Neb [Duoneb] 3 ml IH [id number] PRN inhsol 12/31/17 [Rx] Mometasone/Formoterol [Dulera 200 Mcg/5 Mcg Inhaler] 2 puff IH BID 12/31/17 [ History] Paroxetine HCl [Paxil] 20 mg PO DAILY 12/31/17 [History] Tiotropium [Spiriva] 18 mcg IH DAILYR inh 12/31/17 [Rx] Umeclidinium [place] [Incruse Ellipta] 1 puff AER DAILY 12/31/17 [History] metroNIDAZOLE [Flagyl] 500 mg PO TID 5 Days #15 tablet 12/31/17 [Rx] Allergies/Adverse Reactions: 3 Allergy/AdvReac Type Severity Reaction Status Date / Time aspirin Allergy Hives Verified 12/14/17 15:17 ibuprofen Allergy HIVES AND Verified 12/14/17 15:17 VOMITING Iodinated Contrast- Oral and Allergy Difficulty Verified 12/14/17 15:17 IV Dye Breathing ketorolac [From Toradol] Allergy Hives Verified 12/14/17 15:17 naproxen [From Naprosyn] Allergy Hives Verified 12/14/17 15:17 tramadol [From Ultram] Allergy Hives Verified 12/14/17 15:17 Date of admission: 12/28/17 21:27 Primary care physician: Constantino Larikn MD - Constitutional Vitals: Temp Pulse Resp BP Pulse Ox 98.8 F 78 16 105/70 94 12/31/17 10:55 12/31/17 10:55 12/31/17 10:55 12/31/17 10:55 12/31/17 10:55 Exam: General: Alert and oriented, no distress. Skin:Normal color, no rash, no lesions. HEENT:EOM, pupils equal, round and reactive. Cardiovascular:Normal S1 & S2, no rubs, murmurs or gallops. No JVD. Pulse regular. Lungs: Mild Expiratory wheezes bilaterally, no crackles. Abdomen: Soft, no tenderness to palpation in the left lower quadrant, no rigidity or guarding. mid-umbilical scar Extremities: No deformity, no edema or tenderness, no joint swelling or clubbing. Neurological:Normal cognition and motor skills. Rest of the physical exam is non contributory - Patient Status Disposition: Home, Self-Care Condition: Good Functional capacity at discharge: independent ambulation Overall status at discharge: patient is progressing back to baseline - Discharge Instructions Follow Up With: Constantino Larkin MD [Primary Care Provider] - - Diet and Activity Activity: increase activity as tolerated Diet: advance to your usual diet
[2017-12-31] MEDS ORDERED: Budesonide/Formoterol 160/4.5 1 PUFF INH IH SCH (22:00)
[2018-01-01] MEDS ORDERED: Tiotropium 18 MCG inhalation IH SCH (10:00)
== END 2017-12-31 14:43 | disposition home or self-care (01) ==
LOC: 3ANU 14:26 → EMEROOARM 14:26 → SUATTDRO 21:27 → 3ANU 22:30
PROVIDERS: ADMIT Internal Medicine; ATTEND Internal Medicine

== ENCOUNTER 2018-04-05 09:27 | Observation (INO) ==
--- NOTE | 2018-04-05 09:33 | Emergency Department Note ---
Disposition Clinical Impression: NSTEMI (non-ST elevated myocardial infarction) Disposition: Admitted As Inpatient Condition: Undetermined Referrals: Constantino Larkin MD [Primary Care Provider] - Forms: ED Satisfaction Letter General Adult HPI - General Stated complaint: chest pain Time Seen by Provider: 04/05/18 09:30 - Related Data Home Medications Medication Instructions Recorded Confirmed Gabapentin [Neurontin] 400 mg PO TID 11/06/17 03/29/18 Lisinopril [Zestril] 5 mg PO DAILY 11/06/17 03/29/18 Propranolol [Inderal] 20 mg PO TID 11/06/17 03/29/18 cloNIDine HCl [CloNIDine HCl] 0.1 mg PO DAILY PRN 11/06/17 03/29/18 clonazePAM [Klonopin] 0.5 mg PO TID PRN 11/06/17 03/29/18 Albuterol Sulfate [Proair Hfa] 2 puff IH Q4H PRN 12/31/17 03/29/18 Incruse Ellipta 02/22/18 Fluticasone Propionate Nasal 2 spray NS DAILY 03/29/18 03/29/18 [Flonase] HydrOXYzine Pamoate [Vistaril] 50 mg PO TID PRN 03/29/18 03/29/18 Loratadine [Claritin] 10 mg PO DAILY 03/29/18 03/29/18 Montelukast [Singulair] 10 mg PO HS 03/29/18 03/29/18 OLANZapine [Zyprexa] 10 mg PO HS 03/29/18 03/29/18 Omeprazole [PriLOSEC] 20 mg PO DAILY PRN 03/29/18 03/29/18 Paroxetine HCl [Paxil] 20 mg PO DAILY 03/29/18 03/29/18 rOPINIRole [Requip] 0.25 mg PO HS 03/29/18 03/29/18 Previous Rx's Medication Instructions Recorded Ipratropium/Albuterol Neb [Duoneb] 3 ml IH [id number] PRN inhsol 12/31/17 Allergies Allergy/AdvReac Type Severity Reaction Status Date / Time aspirin Allergy Hives Verified 03/28/18 19:08 dicyclomine [From Bentyl] Allergy See Verified 03/28/18 19:29 Comments ibuprofen Allergy HIVES AND Verified 03/28/18 19:08 VOMITING Iodinated Contrast- Oral and Allergy Difficulty Verified 03/28/18 19:08 IV Dye Breathing ketorolac [From Toradol] Allergy Hives Verified 03/28/18 19:08 naproxen [From Naprosyn] Allergy Hives Verified 03/28/18 19:08 tramadol [From Ultram] Allergy Hives Verified 03/28/18 19:08 Past Medical History - Past Medical History Medical history: Reports: asthma, COPD, CVA, diabetes, hyperlipidemia, hyperte nsion, other Surgical history: Reports: appendectomy, , cholecystectomy, herniorrhaphy, hysterectomy, sinus surgery, other Psychiatric history: Reports: anxiety, bipolar, depression 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 - Social History Smoking Status: Current every day smoker Smokeless Tobacco Status: No Alcohol use: Reports: none Drug use: Reports: none Course Vital Signs Temperature 97.9 F 04/05/18 09:29 Pulse Rate 98 04/05/18 09:29 Respiratory Rate 19 04/05/18 09:29 Blood Pressure 107/83 04/05/18 09:29 O2 Sat by Pulse Oximetry 96 04/05/18 09:29 Temperature 97.9 F 04/05/18 09:29 Pulse Rate 89 04/05/18 10:51 Respiratory Rate 18 04/05/18 10:51 Blood Pressure 123/97 04/05/18 10:51 O2 Sat by Pulse Oximetry 97 04/05/18 10:51 Oxygen Delivery Oxygen Delivery Nasal Cannula Medical Decision Making - Lab Data Result diagrams: 04/05/18 09:45 04/05/18 09:45 Lab Results 04/05/18 04/05/18 04/05/18 Range/Units 09:45 09:45 09:45 WBC 12.5 H (4.3-11.1) K/mcL RBC 4.92 (3.82-4.97) M/mcL Hgb 15.6 H (11.5-15.4) g/dL Hct 45.5 H (35.3-44.9) % MCV 92.5 (83.0-100.0) fL MCH 31.7 (28.0-33.3) pg MCHC 34.3 (31.6-35.5) g/dL RDW 13.2 (11.5-14.5) % Plt Count 244 (140-400) K/mcL MPV 10.3 (9.4-12.4) fL Immature Gran % 0.3 (0-4) % Seg Neutrophils % 68.9 % Lymphocytes % 20.9 % Monocytes % 9.1 % Eosinophils % 0.5 % Basophils % 0.3 % Neutrophils # 8.6 (1.6-8.9) K/mcL Lymphocytes # 2.6 (0.6-4.6) K/mcL Monocytes # 1.1 (0.0-1.3) K/mcL Eosinophils # 0.1 (0.0-0.6) K/mcL Basophils # 0.0 (0.0-0.2) K/mcL PT 11.0 (9.4-12.1) Seconds INR 1.0 APTT 24.5 L (26.0-36.0) Seconds Sodium 138 (136-145) mEq/L Potassium 4.0 (3.5-5.1) mEq/L Chloride 106 (98-107) mEq/L Carbon Dioxide 21 L (23-29) mEq/L BUN 10 (6-20) mg/dL Creatinine 0.68 (0.60-1.20) mg/dL Est GFR ( Amer) > 60 (> 60) Est GFR (Non-Af Amer) > 60 (> 60) BUN/Creatinine Ratio 15 (6-26) Glucose 112 H (70-105) mg/dL Calculated Osmolality 286 (280-300) Calcium 9.7 (8.6-10.3) mg/dL Total Bilirubin 0.4 (0.3-1.0) mg/dL AST 17 (13-39) Units/L ALT 17 (7-52) Units/L Alkaline Phosphatase 77 (34-104) Units/L Troponin I 0.05 H* (< 0.04) ng/mL Serum Total Protein 7.2 (6.4-8.9) g/dL Albumin 4.5 (3.5-5.7) g/dL Globulin 2.7 (2.4-3.5) g/dL Albumin/Globulin Ratio 1.7 (1.1-2.2) Lipase 17 (11-82) Units/L Critical Care Time Critical Care Time: Yes Total Critical Care Time: 30 Attestation: The high probability of a clinically significant, sudden or life threatening deterioration of the [] system(s) required my full and direct attention, intervention and personal management. The aggregate critical care time was [] minutes. This time is in addition to time spent performing reported procedures but includes the following: [] Data Review and interpretation [] Patient assessment and monitoring of vital signs [] Documentation [] Medication orders and management Attestation Statement - Attestation Attestation: I examined this patient and my medical decision-making was reviewed with the Resident Physician. I agree with the documented findings, disposition and treatment plan as described except to the extent set forth below. [id number] time provided Patient arrives complaining of chest discomfort. She arrives by EMS from home. Per review of her recent medical records she had an elevated troponin last week. Cardiac workup initiated in conjunction with the resident physician
--- NOTE | 2018-04-05 09:42 | Emergency Department Note ---
Disposition Clinical Impression: NSTEMI (non-ST elevated myocardial infarction) Disposition: Admitted As Inpatient Condition: Undetermined Referrals: Constantino Larkin MD [Primary Care Provider] - Forms: ED Satisfaction Letter Time of Disposition: 11:13 Chest Pain HPI - General Chief Complaint: ED Chest Pain Stated Complaint: chest pain Time Seen by Provider: 04/05/18 09:30 Source: patient Vital Signs Reviewed: Yes - History of Present Illness HPI Narrative: 38-year-old female who was recently admitted to the hospital for an NSTEMI and signed out AMA on 03/30 presents to the emergency department with chest pain. She states the pain started at 7:30 this morning, he woke her up from her sleep. She describes it as a "squeezing" type of chest pain that is radiating to her left arm. This is associated with nausea. No diaphoresis, no shortness breath. She was given 3 doses 81 mg aspirin. During her last admission, patient states that she left AMA her chest pain had improved and she was not receiving her pain medications. She did not undergo complete cardiac workup at the time as she left AMA. Severity scale (1-10): 7 - Related Data Home Medications Medication Instructions Recorded Confirmed Gabapentin [Neurontin] 400 mg PO TID 11/06/17 03/29/18 Lisinopril [Zestril] 5 mg PO DAILY 11/06/17 03/29/18 Propranolol [Inderal] 20 mg PO TID 11/06/17 03/29/18 cloNIDine HCl [CloNIDine HCl] 0.1 mg PO DAILY PRN 11/06/17 03/29/18 clonazePAM [Klonopin] 0.5 mg PO TID PRN 11/06/17 03/29/18 Albuterol Sulfate [Proair Hfa] 2 puff IH Q4H PRN 12/31/17 03/29/18 Incruse Ellipta 02/22/18 Fluticasone Propionate Nasal 2 spray NS DAILY 03/29/18 03/29/18 [Flonase] HydrOXYzine Pamoate [Vistaril] 50 mg PO TID PRN 03/29/18 03/29/18 Loratadine [Claritin] 10 mg PO DAILY 03/29/18 03/29/18 Montelukast [Singulair] 10 mg PO HS 03/29/18 03/29/18 OLANZapine [Zyprexa] 10 mg PO HS 03/29/18 03/29/18 Omeprazole [PriLOSEC] 20 mg PO DAILY PRN 03/29/18 03/29/18 Paroxetine HCl [Paxil] 20 mg PO DAILY 03/29/18 03/29/18 rOPINIRole [Requip] 0.25 mg PO HS 03/29/18 03/29/18 Previous Rx's Medication Instructions Recorded Ipratropium/Albuterol Neb [Duoneb] 3 ml IH [id number] PRN inhsol 12/31/17 Allergies Allergy/AdvReac Type Severity Reaction Status Date / Time aspirin Allergy Hives Verified 03/28/18 19:08 dicyclomine [From Bentyl] Allergy See Verified 03/28/18 19:29 Comments ibuprofen Allergy HIVES AND Verified 03/28/18 19:08 VOMITING Iodinated Contrast- Oral and Allergy Difficulty Verified 03/28/18 19:08 IV Dye Breathing ketorolac [From Toradol] Allergy Hives Verified 03/28/18 19:08 naproxen [From Naprosyn] Allergy Hives Verified 03/28/18 19:08 tramadol [From Ultram] Allergy Hives Verified 03/28/18 19:08 All systems ED: reviewed and negative except as stated. 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 Absent: wheezes - Cardiovascular Cardiovascular exam: Present: tachycardia, +S1, +S2 - Abdominal Exam Abdominal exam: Present: soft, tenderness - Neurological Exam Neurological exam: Present: alert, oriented X3 - Psychiatric Psychiatric exam: Present: anxious Course Course Narrative: Patient is alert and awake, vitals stable. No STEMI on EKG. 10:36 troponin elevated at 0.05. In the setting of chest pain and previous NSTEMI will admit the patient to the hospital. Patient started on low-dose ACS heparin protocol. 11:07 Spoke with hospitalist who agreed to admit the patient. Called cardiology, Dr. Marcelino, who agreed to the consult. Patient informed of the plan and voices her understanding. Patient will be admitted to the hospital after her PICC line is placed and a heparin drip was started. Vital Signs Temperature 97.9 F 04/05/18 09:29 Pulse Rate 98 04/05/18 09:29 Respiratory Rate 19 04/05/18 09:29 Blood Pressure 107/83 04/05/18 09:29 O2 Sat by Pulse Oximetry 96 04/05/18 09:29 Temperature 97.9 F 04/05/18 09:29 Pulse Rate 89 04/05/18 10:51 Respiratory Rate 18 04/05/18 10:51 Blood Pressure 123/97 04/05/18 10:51 O2 Sat by Pulse Oximetry 97 04/05/18 10:51 Oxygen Delivery Oxygen Delivery Nasal Cannula Chest Pain - MDM Narrative Medical decision making narrative: 48-year-old female presenting to the hospital with chief complaint of chest pain. She was admitted to the hospital on March 29 for an NSTEMI left AMA the next day prior to complete cardiac workup. Patient is returning today for severe chest pain and pressure radiating to her left arm associated with nausea. Labs revealed an elevated troponin of 0.05. PICC line placed and patient was started on heparin. Current vitals stable, patient is not in any distress at this time. Cardiology consulted and agreed to see the patient. Patient admitted to the hospital service. - Medical Records Medical records reviewed: Yes I reviewed the patient's medical records. - Lab Data Lab results reviewed: Yes I reviewed the patient's lab results. Result diagrams: 04/05/18 09:45 04/05/18 09:45 Lab Results 11/30/18 11/30/18 11/30/18 Range/Units 09:45 09:45 09:45 WBC 12.5 H (4.3-11.1) K/mcL RBC 4.92 (3.82-4.97) M/mcL Hgb 15.6 H (11.5-15.4) g/dL Hct 45.5 H (35.3-44.9) % MCV 92.5 (83.0-100.0) fL MCH 31.7 (28.0-33.3) pg MCHC 34.3 (31.6-35.5) g/dL RDW 13.2 (11.5-14.5) % Plt Count 244 (140-400) K/mcL MPV 10.3 (9.4-12.4) fL Immature Gran % 0.3 (0-4) % Seg Neutrophils % 68.9 % Lymphocytes % 20.9 % Monocytes % 9.1 % Eosinophils % 0.5 % Basophils % 0.3 % Neutrophils # 8.6 (1.6-8.9) K/mcL Lymphocytes # 2.6 (0.6-4.6) K/mcL Monocytes # 1.1 (0.0-1.3) K/mcL Eosinophils # 0.1 (0.0-0.6) K/mcL Basophils # 0.0 (0.0-0.2) K/mcL PT 11.0 (9.4-12.1) Seconds INR 1.0 APTT 24.5 L (26.0-36.0) Seconds Sodium 138 (136-145) mEq/L Potassium 4.0 (3.5-5.1) mEq/L Chloride 106 (98-107) mEq/L Carbon Dioxide 21 L (23-29) mEq/L BUN 10 (6-20) mg/dL Creatinine 0.68 (0.60-1.20) mg/dL Est GFR ( Amer) > 60 (> 60) Est GFR (Non-Af Amer) > 60 (> 60) BUN/Creatinine Ratio 15 (6-26) Glucose 112 H (70-105) mg/dL Calculated Osmolality 286 (280-300) Calcium 9.7 (8.6-10.3) mg/dL Total Bilirubin 0.4 (0.3-1.0) mg/dL AST 17 (13-39) Units/L ALT 17 (7-52) Units/L Alkaline Phosphatase 77 (34-104) Units/L Troponin I 0.05 H* (< 0.04) ng/mL Serum Total Protein 7.2 (6.4-8.9) g/dL Albumin 4.5 (3.5-5.7) g/dL Globulin 2.7 (2.4-3.5) g/dL Albumin/Globulin Ratio 1.7 (1.1-2.2) Lipase 17 (11-82) Units/L - Radiology Data Radiology results reviewed: Yes I reviewed the patient's radiology results. - EKG Data EKG attestation: Yes I reviewed and interpreted this EKG. EKG results narrative: EKG shows sinus tachycardia with a heart rate of 100. No axis deviation. Late R-wave progression. Normal IL interval, no QT elongation. No obvious ST elevations or depressions present. Sinus tachycardia normal EKG.
[2018-04-05] MEDS ORDERED: *HR* OxyCODONE/APAP 10/325 TABLET PO ONE (10:29)
[2018-04-05 10:31] LABS: Alanine Aminotransferase 17 Units/L (7-52); Albumin 4.5 g/dL (3.5-5.7); Albumin/Globulin Ratio 1.7 (1.1-2.2); Alkaline Phosphatase 77 Units/L (34-104); Aspartate Amino Transferase 17 Units/L (13-39); BUN/Creatinine Ratio 15 (6-26); Bilirubin,Total 0.4 mg/dL (0.3-1.0); Blood Urea Nitrogen 10 mg/dL (6-20); Calcium 9.7 mg/dL (8.6-10.3); Carbon Dioxide 21 mEq/L (23-29); Chloride 106 mEq/L (98-107); Globulin 2.7 g/dL (2.4-3.5); Glucose 112 mg/dL (70-105); Lipase 17 Units/L (11-82); Osmolality,Calculated 286 (280-300); Sodium 138 mEq/L (136-145); Total Protein 7.2 g/dL (6.4-8.9); eGFR For Non-African Americans > 60 (> 60)
[2018-04-05 10:34] LABS: Basophils % 0.3 %; Eosinophils # 0.1 K/mcL (0.0-0.6); Eosinophils % 0.5 %; Hematocrit 45.5 % (35.3-44.9); Hemoglobin 15.6 g/dL (11.5-15.4); Immature Granulocytes % 0.3 % (0-4); Lymphocytes # 2.6 K/mcL (0.6-4.6); Lymphocytes % 20.9 %; Mean Corpuscular HGB Conc 34.3 g/dL (31.6-35.5); Mean Corpuscular Hemoglobin 31.7 pg (28.0-33.3); Mean Corpuscular Volume 92.5 fL (83.0-100.0); Mean Platelet Volume 10.3 fL (9.4-12.4); Monocytes # 1.1 K/mcL (0.0-1.3); Monocytes % 9.1 %; Neutrophils # 8.6 K/mcL (1.6-8.9); Platelet Count 244 K/mcL (140-400); Red Blood Count 4.92 M/mcL (3.82-4.97); Red Cell Distribution Width 13.2 % (11.5-14.5); Segmented Neutrophils % 68.9 %; Troponin I 0.05 ng/mL (< 0.04)
[2018-04-05] MEDS ORDERED: *HR* Heparin 5,000 UNIT/ML VIAL IVP ONE (10:44)
[2018-04-05] MEDS ORDERED: *HR* Heparin 5,000 UNIT/ML VIAL IVP PRN ×2 (10:44)
[2018-04-05] MEDS ORDERED: Heparin 25,000 UNIT/500 ML D5W 25,000 UNIT/500 ML BAG IVC SCH (10:45)
[2018-04-05 10:46] LABS: Activated Partial Thrombo Time 24.5 Seconds (26.0-36.0)
--- NOTE | 2018-04-05 11:41 | Cardiology Consult Note ---
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 I agree with the documented findings, disposition and treatment plan as described except to the extent set forth below. A/P: NSTEMI DM HTN A/R/B of [facility] discussed with her including 1% chance of M I//CVA/CABG/BRYANT/bleeding. PT aware and agreeable with proceeding. Thank you for the consult, Ye Marcelino MD [facility] Original Note: Date of Encounter: 04/05/18 Time of Encounter: 11:40 Assessment and Plan (1) NSTEMI (non-ST elevated myocardial infarction) Current Visit: Yes Status: Acute Initial troponin 0.05. Presented with chest pain that woke her from sleep, radiating to left arm associated with nausea. ECG no acute findings. Recent admission 03/29 peak troponin 0.13. Pt left AMA before cardiac testing could be completed. Risk factors for CAD include tobacco abuse, HTN, HLD, DM. On heparin gtt. Start ASA, Statin, BB. TTE to evaluate structure and function. Recommend [facility]. R/B/A discussed. Pt agrees. ASA allergy listed as hives. Took 3 81mg ASA this AM without reaction. IVP dye allergy. Reports reaction is chest pressure, dyspnea that resolved with benadryl. Discussed and reviewed with interventionalist, Dr. Kelsey, will pre-medicate with PO Prednisone 60mg once and PO Benadryl 50mg once. If PCI is warranted, favor bare metal stent given planned left colectomy in May for recurrent diverticulitis. Continue to follow. Discussion w patient/family: The assessment and plan as outlined above was discussed with the patient and/or family members who expressed understanding and agreement. All questions were answered. Thank you for involving us in the care of your patient. Please call with any questions. I will discuss all the above with Dr. Marcelino and make changes as necessary. History of Present Illness Consult date: 04/05/18 Consult reason: Elevated troponin Chief complaint: chest pain History of present illness: Ms. Craig is a 48 year old female with PMH of COPD, diabetes, hypertension, hyperlipidemia, diverticulosis and recurrent diverticulitis, TAMANNA, CVA, brain tumor s/p resection who was recently admitted to the hospital for an NSTEMI earlier this month with peak troponin 0.13 and signed out AMA before any testing could be completed. She presents to ED this AM with chest pain that woke her from sleep, described as squeezing that radiated to her left arm, associated with nausea. She was given 3 doses 81 mg aspirin with improvement. Initial tr oponin 0.05. Cardiology consulted for further recs. She denies any prior known cardiac hx. States she has a left colectomy scheduled with Dr. Patel in May for recurrent diverticulitis. Past Med Surg Social Fam HX - Past Medical History Medical history: asthma, COPD, CVA, diabetes, hyperlipidemia, hypertension, other Additional medical history: sleep apnea, Psychiatric history: anxiety, bipolar, depression - Past Surgical History Surgical History: appendectomy, , cholecystectomy, herniorrhaphy, hysterectomy, sinus surgery, other Additional surgical history: Bladder Sleeve. Bladder Stimulator - Social History Smoking Status: Current every day smoker Smokeless Tobacco Status: No Alcohol use: none Drug use: none - Family History Father Living Status: Hx Family Respiratory Disorders: Yes (COPD) Hx Family Cancer: Yes (colon cancer) Mother Living Status: Hx Family Cardiac Disorders: Yes (CAD, CHF, stents, defibrillator) Hx Family Respiratory Disorders: No Hx Family Cancer: Yes (cancer (type unknown to patient)) Hx Family GI Disorders: No Hx Family Endocrine Disorder: No Hx Family Neuromuscular Disorders: No Hx Family Neurologic Disorders: No Hx Family HEENT Disorders: No Hx Family Autoimmune Disorders: No Medications and Allergies Gabapentin [Neurontin] 400 mg PO TID 11/06/17 [History] Lisinopril [Zestril] 5 mg PO DAILY 11/06/17 [History] Propranolol [Inderal] 20 mg PO TID 11/06/17 [History] cloNIDine HCl [CloNIDine HCl] 0.1 mg PO DAILY PRN 11/06/17 [History] clonazePAM [Klonopin] 0.5 mg PO TID PRN 11/06/17 [History] Albuterol Sulfate [Proair Hfa] 2 puff IH Q4H PRN 12/31/17 [History] Ipratropium/Albuterol Neb [Duoneb] 3 ml IH [id number] PRN inhsol 12/31/17 [Rx] Incruse Ellipta 02/22/18 [History] Fluticasone Propionate Nasal [Flonase] 2 spray NS DAILY 03/29/18 [History] HydrOXYzine Pamoate [Vistaril] 50 mg PO TID PRN 03/29/18 [History] Loratadine [Claritin] 10 mg PO DAILY 03/29/18 [History] Montelukast [Singulair] 10 mg PO HS 03/29/18 [History] OLANZapine [Zyprexa] 10 mg PO HS 03/29/18 [History] Omeprazole [PriLOSEC] 20 mg PO DAILY PRN 03/29/18 [History] Paroxetine HCl [Paxil] 20 mg PO DAILY 03/29/18 [History] rOPINIRole [Requip] 0.25 mg PO HS 03/29/18 [History] Allergy/AdvReac Type Severity Reaction Status Date / Time aspirin Allergy Hives Verified 03/28/18 19:08 dicyclomine [From Bentyl] Allergy See Verified 03/28/18 19:29 Comments ibuprofen Allergy HIVES AND Verified 03/28/18 19:08 VOMITING Iodinated Contrast- Oral and Allergy Difficulty Verified 03/28/18 19:08 IV Dye Breathing ketorolac [From Toradol] Allergy Hives Verified 03/28/18 19:08 naproxen [From Naprosyn] Allergy Hives Verified 03/28/18 19:08 tramadol [From Ultram] Allergy Hives Verified 03/28/18 19:08 All Systems Review: The remainder of the systems were reviewed and are negative - Cardiovascular Cardiovascular: as per HPI, chest pain at rest, chest pain with exertion - Gastrointestinal Gastrointestinal: nausea Physical Examination Vital Signs, Last 4 Hours Temp Pulse Resp BP Pulse Ox 04/05/18 10:51 89 18 123/97 97 04/05/18 09:29 97.9 F 98 19 107/83 2 Vital Signs Temp Pulse Resp BP Pulse Ox 04/05/18 10:51 89 18 123/97 97 04/05/18 09:29 97.9 F 98 19 107/83 2 Intake and Output 04/04/18 04/05/18 04/05/18 23:59 07:59 15:59 Other: Weight 95.345 kg Patient Weight 04/05/18 23:59 Weight 95.345 kg General: Conversant, No Apparent Distress HEENT: Atraumatic, Normocephaly, Mucus Membranes Moist Neck: No JVD, Normal carotid pulses Cardiac: Reg Rate and Rhythm, Normal S1 and S2, No Murmur Lungs: Other (rhonchi) Neuro: Alert and responsive, No focal deficits noted Abdomen: Soft, Non-Tender Skin: No rashes noted on visualized skin Musculoskeletal: No Chest Wall Tenderness Extremities: No Clubbing, No Cyanosis, No Edema, Normal Pulses Results 04/05/18 09:45 04/05/18 09:45 Lab Results 04/05/18 04/05/18 04/05/18 09:45 09:45 09:45 WBC 12.5 H Hgb 15.6 H Hct 45.5 H Plt Count 244 INR 1.0 APTT 24.5 L Sodium 138 Potassium 4.0 Chloride 106 Carbon Dioxide 21 L BUN 10 Creatinine 0.68 Glucose 112 H Calcium 9.7 Total Bilirubin 0.4 AST 17 ALT 17 Alkaline Phosphatase 77 Troponin I 0.05 H* Lipase 17 Short CBC 04/05/18 Range/Units 09:45 WBC 12.5 H (4.3-11.1) K/mcL Hgb 15.6 H (11.5-15.4) g/dL Hct 45.5 H (35.3-44.9) % Plt Count 244 (140-400) K/mcL Neutrophils # 8.6 (1.6-8.9) K/mcL BMP 04/05/18 Range/Units 09:45 Sodium 138 (136-145) mEq/L Potassium 4.0 (3.5-5.1) mEq/L Chloride 106 (98-107) mEq/L Carbon Dioxide 21 L (23-29) mEq/L BUN 10 (6-20) mg/dL Creatinine 0.68 (0.60-1.20) mg/dL Glucose 112 H (70-105) mg/dL Calcium 9.7 (8.6-10.3) mg/dL Cardiac Enzymes 04/05/18 Range/Units 09:45 Troponin I 0.05 H* (< 0.04) ng/mL Liver Function 04/05/18 Range/Units 09:45 Total Bilirubin 0.4 (0.3-1.0) mg/dL AST 17 (13-39) Units/L ALT 17 (7-52) Units/L Alkaline Phosphatase 77 (34-104) Units/L Albumin 4.5 (3.5-5.7) g/dL Impressions Chest X-Ray 04/05/18 09:31 IMPRESSION: 1. No active pulmonary disease. D/ / Teodoro Nelson MD / Teodoro Nelson MD Interpreting Provider: Teodoro Nelson MD Active Medications Heparin Sodium (Porcine) (Heparin) 4,000 unit IVP Q6HR PRN PRN Reason: SEE COMMENTS Stop: 10/05/18 10:45 Heparin Sodium (Porcine) (Heparin) 2,000 unit IVP Q6H PRN PRN Reason: SEE COMMENTS Stop: 10/05/18 10:45 Heparin Sodium/Dextrose (Heparin 25,000 Unit/500 Ml D5w) 25,000 unit in 500 mls @ 20.657 mls/hr IVC .Q24H AVIVA; Protocol Stop: 10/05/18 10:46 - EKG Interpretation EKG results cardiology: personally reviewed (SR) Consult Discharge Plan - Plan Referrals: Constantino Larkin MD [Primary Care Provider] -
--- NOTE | 2018-04-05 11:58 | Internal Med History&Physical ---
Date of Encounter: 04/05/18 Time of Encounter: 11:56 Internal Medicine - H&P: HPI Chief complaint: chest pain Admitted From: Emergency Dept Plans for Post Hospital Care: Home History of present illness: Ms. Craig is a 48 year old female Patient with history of hypertension, high cholesterol, diabetes, COPD, CVA, obstructive sleep apnea, family history of CAD. Patient was admitted March 29 with chest pain. Troponin was 0.13 consistent with non-STEMI the patient left AMA prior to cardiac evaluation patient return to emergency room with chest pain that woke her up from sleep describes as a squeezing pressure going down to her left arm associated with nausea and that she came into the emergency room initial troponin so far 0.05 she is admitted cartilages consult started on heparin drip she is now almost chest painfree not completely resolved but s almost gone. Past Med Surg Social Fam HX - Past Medical History Medical history: asthma, COPD, CVA, diabetes, hyperlipidemia, hypertension, other Additional medical history: sleep apnea, Psychiatric history: anxiety, bipolar, depression - Past Surgical History Surgical History: appendectomy, , cholecystectomy, herniorrhaphy, hysterectomy, sinus surgery, other Additional surgical history: Bladder Sleeve. Bladder Stimulator - Social History Smoking Status: Current every day smoker Smokeless Tobacco Status: No Alcohol use: none Drug use: none - Family History Father Living Status: Hx Family Respiratory Disorders: Yes (COPD) Hx Family Cancer: Yes (colon cancer) Mother Living Status: Hx Family Cardiac Disorders: Yes (CAD, CHF, stents, defibrillator) Hx Family Respiratory Disorders: No Hx Family Cancer: Yes (cancer (type unknown to patient)) Hx Family GI Disorders: No Hx Family Endocrine Disorder: No Hx Family Neuromuscular Disorders: No Hx Family Neurologic Disorders: No Hx Family HEENT Disorders: No Hx Family Autoimmune Disorders: No Internal Medicine - H&P: Meds Gabapentin [Neurontin] 400 mg PO TID 11/06/17 [History] Lisinopril [Zestril] 5 mg PO DAILY 11/06/17 [History] Propranolol [Inderal] 20 mg PO TID 11/06/17 [History] cloNIDine HCl [CloNIDine HCl] 0.1 mg PO DAILY PRN 11/06/17 [History] clonazePAM [Klonopin] 0.5 mg PO TID PRN 11/06/17 [History] Albuterol Sulfate [Proair Hfa] 2 puff IH Q4H PRN 12/31/17 [History] Ipratropium/Albuterol Neb [Duoneb] 3 ml IH [id number] PRN inhsol 12/31/17 [Rx] Incruse Ellipta 02/22/18 [History] Fluticasone Propionate Nasal [Flonase] 2 spray NS DAILY 03/29/18 [History] HydrOXYzine Pamoate [Vistaril] 50 mg PO TID PRN 03/29/18 [History] Loratadine [Claritin] 10 mg PO DAILY 03/29/18 [History] Montelukast [Singulair] 10 mg PO HS 03/29/18 [History] OLANZapine [Zyprexa] 10 mg PO HS 03/29/18 [History] Omeprazole [PriLOSEC] 20 mg PO DAILY PRN 03/29/18 [History] Paroxetine HCl [Paxil] 20 mg PO DAILY 03/29/18 [History] rOPINIRole [Requip] 0.25 mg PO HS 03/29/18 [History] Allergy/AdvReac Type Severity Reaction Status Date / Time aspirin Allergy Hives Verified 03/28/18 19:08 dicyclomine [From Bentyl] Allergy See Verified 03/28/18 19:29 Comments ibuprofen Allergy HIVES AND Verified 03/28/18 19:08 VOMITING Iodinated Contrast- Oral and Allergy Difficulty Verified 03/28/18 19:08 IV Dye Breathing ketorolac [From Toradol] Allergy Hives Verified 03/28/18 19:08 naproxen [From Naprosyn] Allergy Hives Verified 03/28/18 19:08 tramadol [From Ultram] Allergy Hives Verified 03/28/18 19:08 All Systems PM: A 10-system review of systems was performed and is negative for pertinent findings except as documented above in the HPI. - Constitutional Vitals: Temp Pulse Resp BP Pulse Ox 97.9 F 89 18 123/97 97 04/05/18 09:29 04/05/18 10:51 04/05/18 10:51 04/05/18 10:51 04/05/18 10:51 General appearance: Present: obese, underweight Exam: done - Eye Eye exam: Present: PERRL, conjuntiva pink, sclera anicteric Pupils: Present: PERRL - Respiratory Respiratory exam: Present: CTAB. Absent: accessory muscle use, rales, rhonchi, wheezes - Cardiovascular Cardiovascular exam: Present: RRR, +S1, +S2. Absent: diastolic murmur, gallop, rubs, systolic murmur - GI/Abdominal GI/Abdominal exam: Present: normal bowel sounds, soft, no peritoneal signs. Absent: distended, tenderness - Extremities Exam Extremities exam: Present: warm, radial pulses palpable and symmetrical. Absent: calf tenderness, cyanotic, pedal edema Internal Med - H&P Results - Labs CBC & Chem 7: 04/05/18 09:45 04/05/18 09:45 Labs: Short CBC 04/05/18 Range/Units 09:45 WBC 12.5 H (4.3-11.1) K/mcL Hgb 15.6 H (11.5-15.4) g/dL Hct 45.5 H (35.3-44.9) % Plt Count 244 (140-400) K/mcL Neutrophils # 8.6 (1.6-8.9) K/mcL BMP 04/05/18 09:45 Sodium 138 Potassium 4.0 Chloride 106 Carbon Dioxide 21 L BUN 10 Creatinine 0.68 Glucose 112 H Calcium 9.7 Cardiac Enzymes 04/05/18 Range/Units 09:45 Troponin I 0.05 H* (< 0.04) ng/mL Liver Function 04/05/18 Range/Units 09:45 Total Bilirubin 0.4 (0.3-1.0) mg/dL AST 17 (13-39) Units/L ALT 17 (7-52) Units/L Alkaline Phosphatase 77 (34-104) Units/L Albumin 4.5 (3.5-5.7) g/dL - Impressions ITS Impressions Chest X-Ray 04/05/18 09:31 IMPRESSION: 1. No active pulmonary disease. D/ / Teodoro Nelson MD / Teodoro Nelson MD Interpreting Provider: Teodoro Nelson MD - Assessment and plan (1) COPD (chronic obstructive pulmonary disease) Current Visit: No Status: Chronic Assessment and plan: COPD no active wheezing at present will resume home medication Qualifiers: COPD type: unspecified COPD Qualified Code(s): J44.9 - Chronic obstructive pulmonary disease, unspecified (2) Obesity (BMI 30-39.9) Current Visit: No Status: Chronic Assessment and plan: Chronic due to excess caloric intake (3) Hypertension Current Visit: No Status: Chronic Assessment and plan: Chronic and well controlled Qualifiers: Hypertension type: essential hypertension Qualified Code(s): I10 - Essent ial (primary) hypertension (4) Type 2 diabetes mellitus Current Visit: No Status: Chronic Assessment and plan: Chronic we will resume home medication and place on sliding scale Qualifiers: Diabetes mellitus offal trimmer insulin use: without correction use Diabetes mellitus complication status: without complication Qualified Code(s): E11.9 - Type 2 diabetes mellitus without complications (5) Hyperlipidemia Current Visit: No Status: Chronic Assessment and plan: Recent cholesterol was high total 252 and LDL 142. Lipitor 40 mg daily Qualifiers: Hyperlipidemia type: pure hypercholesterolemia Qualified Code(s): E78.00 - Pure hypercholesterolemia, unspecified; E78.0 - Pure hypercholesterolemia (6) NSTEMI (non-ST elevated myocardial infarction) Current Visit: Yes Status: Acute Assessment and plan: Patient will recent non-STEMI at present with chest pain typical of cardiac chest pain initial troponin so far 0.05 she is on heparin cardiology is consult will trend troponin - Time Spent With Patient Total time spent is greater than 50% in coordination of care (as documented) at patient's floor/unit and/or counseling patient:
[2018-04-05] MEDS ORDERED: traMADol 50 MG TABLET PO PRN (12:04)
[2018-04-05] MEDS ORDERED: Naloxone 0.4 MG/ML INJ IVP PRN (12:04)
[2018-04-05] MEDS ORDERED: Acetaminophen 325 MG TABLET PO PRN (12:04)
[2018-04-05] MEDS ORDERED: predniSONE 20 MG TABLET PO ONE (12:34)
[2018-04-05] MEDS ORDERED: Nitroglycerin 1,000 MCG/10 ML VIAL IV ONE (14:58)
[2018-04-05] MEDS ORDERED: *HR* Heparin 10,000 UNIT/10 ML VIAL ONE (14:58)
[2018-04-05] MEDS ORDERED: Heparin 1,000 UNITS/500 mL 500 ML ONE (14:58)
[2018-04-05] MEDS ORDERED: ISOVUE-370 200 ML INFUS..BTL ONE (14:58)
[2018-04-05] MEDS ORDERED: 0.9 % Sodium Chloride 1,000 ML ONE ×2 (14:58→15:27)
[2018-04-05] MEDS ORDERED: *HR* Midazolam HCl 2 MG/2 ML VIAL ONE ×2 (15:35→15:47)
--- NOTE | 2018-04-05 15:47 | Pre-Sedation Evaluation ---
Pre-sedation evaluation - Pre-sedation checklist Date of procedure: 04/05/18 Procedure: left heart cath Recent Vitals: Last Vital Signs Temp 97.9 F 04/05/18 09:29 Pulse 89 04/05/18 10:51 Resp 18 04/05/18 10:51 BP 123/97 04/05/18 10:51 Pulse Ox 97 04/05/18 10:51 H&P (including ROS) documented in medical record: Yes Previous reaction to sedatives/anesthetics: No Dietary Status: NPO after Midnight Airway Assessment: Patient can open mouth completely, TMJ function normal Dentition: dentures removed Possible difficult airway: No ASA Classification *see protocol: CLASS III-Severe systemic disease Plan of Care: Pt appropriate candidate for procedure/moderate/conscious sedation, Risks/benefits of procedure/sedation discussed w/ patient/family, If not NPO; Risk of intake outweiged by necessity to perform procedure Cardiac Registry (Cardio Only) - Functional Capacity Functional Capacity: >=4 METS with symptoms - Clincal Frailty Scale Clinical Frailty Scale: Vulnerable
[2018-04-05] MEDS ORDERED: *HR* Morphine 2 MG/ML SYRINGE ONE (16:16)
[2018-04-05] MEDS ORDERED: *HR* Ticagrelor 90 MG TABLET ONE (16:25)
[2018-04-05] MEDS ORDERED: *HR* Bivalirudin 250 MG VIAL IVC ONE (16:35)
--- NOTE | 2018-04-05 16:44 | Event Note ---
Date of Encounter: 04/05/18 Time of Encounter: 16:39 - Cardiology Event Note Pt underwent LHC for chest pain, elevated troponin, had severe stenosis proximal RCA, 90% to 0% with sequential 3.5 x 18 BMS, (planned colon resection in May), has 60% mid LAD only residual stenosis, continue maximal medical tx. Ortiz Kelsey D.O.
--- NOTE | 2018-04-05 16:50 | Electrocardiograph Report ---
[address] [place], [place] [address] Test Date: 2018-04-05 Pat Name: Kimberley Craig Department: EXAM4 Room: 2A Gender: F Internal Communications Manager: : 1970 Requested By: Mulugeta Ruiz Order Number: [id number] Reading MD: Shirin Banegas Measurements Intervals [place] Rate: 100 P: 68 MN: 146 QRS: 56 QRSD: 90 T: 47 QT: 362 QTc: 467 Interpretive Statements Sinus tachycardia Electronically Signed On 04-05-2018 16:48:44 EST by Shirin Banegas
[2018-04-05] MEDS ORDERED: *HR* OxyCODONE/APAP 5/325 TABLET PO ONE (17:09)
--- NOTE | 2018-04-05 19:01 | Invasive Diagnostic Lab Proc ---
Name: Kimberley Craig Date of Study: 04/05/2018 Date: 1970 Ht: 61.8in Medical Record#: [id number] Age: 48 Wt: 210.10lb Gender: Female BSA: 1.95 Order #: [id number] BMI: 38.66 Physicians Procedure Physician: Neo Kelsey DO Referring MD: Referring MD: Staff Name Position Time In Blake Tierney RN Electrical Apprentice 03:30 PM Pito Santiago RT (R) Monitor 03:30 PM Anna Coughlin RT (R) Scrub 03:30 PM Indications Indication Non-Stemi Procedures Performed Procedure L HRT ARTERY/VENTRICLE ANGIO PRQ CARD BM STENT W/ANGIO 1 VSL Pre-Procedure Checklist Informed consent is complete signed and on chart. H&P is on chart. ID band is on and ID verified with patient. Patient NPO for procedure The procedure was described for the patient and questions were answered. Blood Pressure: 123/97 ECG is on chart. Rhythm: NSR Plan of Care Patient will tolerate the procedure without complications. Adequate level of comfort will be maintained. Hemodynamics will remain stable Patient will recover from procedure without complications. Respiratory function will be maintained. Cardiac rhythm will remain stable. Patient temperature will be maintained. Patient and/or family have verbalized understanding of the procedure. Patient Education Chief Complaint/Reason for Test: Cardiac Cath Developmental Category: Adult (18-64 years) Developmentally Appropriate for Age: Yes Learning Barriers: None Education Needs: Procedure Education Method: Verbal Information Taught: Cardiac Cath Educational Evaluation: Able to repeat information Intravenous Access Time IV Size Location DC'd Fluid/Drip Rate Units RN 03:29 PM 20g 1 1/4" Patent On Arrival Rt Arm 0.9NaCl 25 ml/hr Blake Tierney RN Allergies ASA, TORADOL,ULTRAM aspirin codeine ibuprofen ASA,CODEINE,TORADOL,IBUPROFEN ketorolac tramadol naproxen Iodinated Contrast Media - IV Dye *HR* CODEINE Iodinated Contrast- Oral and IV Dye Iodinated Contrast Media - Oral and Vital Signs Time BP (mmHg) HR (bpm) O2 Sat. RR (bpm) LOC 03:29 PM 123 / 97 89 97 % 18 5 = Fully awake and oriented or at pre-proc level 03:32 PM / % 5 = Fully awake and oriented or at pre-proc level 03:32 PM / % 5 = Fully awake and oriented or at pre-proc level 03:48 PM / % 5 = Fully awake and oriented or at pre-proc level 04:03 PM / % 4 = Oriented but drowsy 03:40 PM 131 / 78 83 98 % 3 03:44 PM 119 / 73 84 96 % 16 03:49 PM 121 / 70 87 96 % 18 03:54 PM 117 / 77 81 96 % 16 04:00 PM 125 / 68 80 96 % 21 04:05 PM 132 / 79 78 95 % 21 04:09 PM 142 / 85 83 95 % 13 04:14 PM 136 / 84 76 95 % 22 04:19 PM 136 / 75 85 92 % 22 04:24 PM 129 / 72 85 91 % 12 04:18 PM / % 5 = Fully awake and oriented or at pre-proc level 04:45 PM 134 / 79 82 93 % 18 5 = Fully awake and oriented or at pre-proc level 05:00 PM 129 / 85 82 94 % 20 5 = Fully awake and oriented or at pre-proc level 05:15 PM 133 / 92 85 93 % 16 5 = Fully awake and oriented or at pre-proc level 05:32 PM 139 / 85 84 93 % 16 5 = Fully awake and oriented or at pre-proc level 06:00 PM 137 / 89 85 95 % 27 5 = Fully awake and oriented or at pre-proc level 06:15 PM 121 / 87 86 97 % 16 5 = Fully awake and oriented or at pre-proc level 06:30 PM 132 / 113 % 5 = Fully awake and oriented or at pre-proc level 06:35 PM 135 / 107 % 5 = Fully awake and oriented or at pre-proc level 06:40 PM 151 / 93 82 95 % 16 5 = Fully awake and oriented or at pre-proc level 06:53 PM 131 / 86 83 95 % 16 5 = Fully awake and oriented or at pre-proc level Procedural Medications Time Medication Dose Units Method Given By 03:37 PM Oxygen 2 L/min nasal cannula Blake Tierney RN 03:40 PM Versed 2 mg Intravenous Blake Tierney RN 03:54 PM Versed 1 mg Intravenous Blake Tierney RN 03:55 PM Lidocaine 2% 10 ml Subcutaneous Neo Kelsey DO 03:56 PM Lidocaine 2% 5 ml Subcutaneous Neo Kelsey DO 04:02 PM Versed 1 mg Intravenous Blake Tierney RN 04:05 PM Angiomax 0.75mg/kg bolus: 14 ml Intravenous Blake Tierney RN 04:05 PM Angiomax 1.75mg/kg/hr: 33 ml Intravenous Blake Tierney RN 04:10 PM Nitroglycerin 100 mcg Intracoronary Neo Kelsey DO 04:17 PM Morphine 2 mg Intravenous Blake Tierney RN 04:22 PM Nitroglycerin 100 mcg Intracoronary Neo Kelsey DO 04:30 PM Angiomax 1.75mg/kg/hr: 33 ml Dc'd Blake Tierney RN 04:30 PM Morphine 2 mg Intravenous Blake Tierney RN 04:30 PM Brilinta 180 mg Orally Blake Tierney RN 05:17 PM Percocet ASA Classification: CLASS III- Severe systemic disease (i.e. prior AMI, diabetes with vascular complications, morbid obesity) Jeovany Score Preprocedure Postprocedure Activity 2- Moves 4 extremities sustained head lift Activity 2- Moves 4 extremities sustained head lift Circulation 2- SBP +/= 20 points of pre-anesthetic level Circulation 2- SBP +/= 20 points of pre-anesthetic level Consciousness 2- Awake and alert oriented x 3 Consciousness 2- Awake and alert oriented x 3 O2 Saturation 2- Able to maintain O2 satruation of 92% on room air O2 Saturation 2- Able to maintain O2 satruation of 92% on room air Respiratory 2- Able to deep breathe and cough well Respiratory 2- Able to deep breathe and cough well Total Score 10 Total Score 10 Contrast Agent: Isovue Diagnostic Contrast: 80 ml Total Contrast: 80 ml Fluoro Dose: 01681 mGy Procedure Log Time Note Enter By 03:30 PM Blake Tierney RN Position: Electrical Apprentice Time in: 15:30 [email or web address] 03:30 PM Pito Santiago RT (R) Position: Monitor Time in: 15:30 [email or web address] 03:30 PM Anna Coughlin RT (R) Position: Scrub Time in: 15:30 [email or web address] 03:30 PM Patient charges- Angio tray pack, Navilyst 3mm J, Pulse Oximetry and ACIST tubing and transducer [email or web address] 03:30 PM Clinical Presentation: Non-STEMI [email or web address] 03:32 PM Pt arrived to laborer 2 at 15:32 [email or web address] 03:32 PM Case Delayed No [email or web address] 03:32 PM Time: 15:32 Patient comfortable and pain free: Yes [email or web address] 03:32 PM Time: 15:32LOC: 5 = Fully awake and oriented or at pre-proc level [email or web address] 03:33 PM CathStat 03:35 PM Physician arrived 15:35 2 03:35 PM Meet and reji completed [email or web address] 03:35 PM Sign in performed according to hospital policy. Informed consent was obtained. [email or web address] 03:35 PM Procedure start 15:35 [email or web address] 03:36 PM ASA Class CLASS III- Severe systemic disease (i.e. prior AMI, diabetes with vascular complications, morbid obesity) [email or web address] 03:37 PM Time: 15:37 Oxygen on at 2 L/min per nasal cannula by Blake Tierney RN 03:37 PM Hair removed from procedure site in procedure lab using clippers. Bilateral groin prepped with Chloraprep by Anna Coughlin), then patient was draped. Skin intact. [email or web address] 03:39 PM Vitals capture started with the following parameters, Patient=Adult, Interval=5 min, Initial Fqdrhtgf=663 mmHg, Deflation Rate=5 mmHg, Cuff placed on Right Arm 03:40 PM Recorded ECG: HR=87 Condition=Condition 1 03:40 PM HR=83 bpm, VDUV=857/78 mmhg, SpO2=98.0 %, Resp=3 B/min 03:40 PM Time: 15:40 Versed 2 mg Intravenous Given by Blake Tierney RN [facility] 03:44 PM HR=84 bpm, XIIW=743/73 mmhg, SpO2=96.0 %, Resp=16 B/min, EtCO2=26 mmHg 03:48 PM Time: 15:32LOC: 5 = Fully awake and oriented or at pre-proc level [email or web address] 03:48 PM Time: 15:32 Patient comfortable and pain free: Yes [email or web address] 03:49 PM HR=87 bpm, HCQV=052/70 mmhg, SpO2=96.0 %, Resp=18 B/min, EtCO2=34 mmHg 03:50 PM Pressure channel 2 zeroed. 03:54 PM Time: 15:54 Versed 1 mg Intravenous Given by Blake Tierney RN [facility] 03:54 PM HR=81 bpm, MGEN=905/77 mmhg, SpO2=96.0 %, Resp=16 B/min 03:55 PM Time out was performed according to hospital policy. Conscious sedation and anesthesia was achieved (see medication log with in this report above) [email or web address] 03:55 PM Time: 15:55 10 ml Lidocaine 2% to right groin Subcutaneous Given by Neo Kelsey DO 03:56 PM Micro-Introducer Kit utilized for sheath placement bw 03:57 PM Time: 15:56 5 ml Lidocaine 2% to right groin Subcutaneous Given by Neo Kelsey DO 2 03:57 PM Access obtained by percutaneous puncture. 6Fr 10cm Terumo [place] sheath placed in right Femoral artery. [id number] [email or web address] 03:57 PM 0.035 145cm Navilyst 3mmJ wire [id number] bw 03:58 PM 6Fr FR 4 catheter inserted over the wire [facility] bw 03:59 PM Catheter crossed the aortic valve and was selectively placed in the left ventricle. Pressures recorded on pullback for left heart catheterization. bw 03:59 PM hand inject LV gram [email or web address] 03:59 PM Recorded Pressure: LV, HR=83, Condition=Condition 1 (Left Ventricle) LV 81/2/5 03:59 PM Recorded Pressure: LV, Ao, HR=91, Condition=Condition 1 (Left Ventricle) LV 106/-2/7, (Aorta) Ao 96/38/72 04:00 PM RCA angiography performed in multiple views. bw 04:00 PM Coronary Dominance: right [email or web address] 04:00 PM HR=80 bpm, HVOY=360/68 mmhg, SpO2=96.0 %, Resp=21 B/min 04:00 PM Catheter removed bw 04:00 PM 5Fr FL 4 catheter inserted over the wire [facility] bw 04:01 PM LCA angiography performed in multiple views. bw 04:01 PM Recorded Pressure: Ao, HR=64, Condition=Condition 1 (Aorta) Ao 90/45/68 04:02 PM Time: 16:02 Versed 1 mg Intravenous Given by Blake Tierney RN 04:03 PM Time: 15:48LOC: 5 = Fully awake and oriented or at pre-proc level bw 04:03 PM Time: 15:48 Patient comfortable and pain free: Yes [email or web address] 04:03 PM Catheter removed bw 04:03 PM Lesion found in Proximal LAD. Pre Stenosis: 60 Pre RUTHANN Flow: [email or web address] 04:03 PM Proximal Left Anterior Descending Coronary Artery with 60% stenosis. If graft is supplying this territory, 0 % stenosis. [email or web address] 04:04 PM Lesion found in Proximal RCA. Pre Stenosis: 98 Pre RUTHANN Flow: [email or web address] 04:04 PM Right Coronary, Right Posterior Descending Arteries with Right Posterolateral and Acute Marginal branches with 98 % stenosis. If graft is supplying this area, 0 % stenosis [email or web address] 04:04 PM 6Fr JR 4 [place] Bright-Tip guide catheter was used to cannulate the PCI vessel successfully. reused? No [email or web address] 04:04 PM Inflation device was opened. [email or web address] 04:05 PM HR=78 bpm, ZUXM=842/79 mmhg, SpO2=95.0 %, Resp=21 B/min 04:05 PM Time: 16:05 Angiomax 0.75mg/kg bolus: 14 ml Intravenous Given by Blake Tierney RN [place] pump [email or web address] 04:06 PM Time: 16:05 Angiomax 1.75mg/kg/hr: 33 ml Intravenous Given by Blake Tierney RN [place] pump [email or web address] 04:06 PM .014 ChoICE PT Floppy 300cm guide wire across target lesion- successful. reused? No [email or web address] 04:08 PM 3.5mm x 16mm Rebel [employer] bare metal stent across target lesion- successful Lot #[id number] [email or web address] 04:09 PM Stent deployed @ 16 hank for 21 seconds [email or web address] 04:09 PM Recorded Pressure: Ao, HR=60, Condition=Condition 1 (Aorta) Ao 119/73/94 04:09 PM Stent delivery system removed intact. [email or web address] 04:09 PM HR=83 bpm, OIGL=850/85 mmhg, SpO2=95.0 %, Resp=13 B/min, EtCO2=32 mmHg 04:10 PM Time: 16:10 Nitroglycerin 100 mcg Intracoronary Given by Neo Kelsey DO [email or web address] 04:11 PM Recorded Pressure: Ao, HR=82, Condition=Condition 1 (Aorta) Ao 127/84/103 04:12 PM 3.5mm x 12mm Rebel [employer] bare metal stent across target lesion- successful Lot #[id number] [email or web address] 04:14 PM Stent deployed @ 14 hank for 15 seconds [email or web address] 04:14 PM Stent balloon reinflated @ 16 hank for 14 seconds [email or web address] 04:14 PM HR=76 bpm, JLBR=991/84 mmhg, SpO2=95.0 %, Resp=22 B/min, EtCO2=27 mmHg 04:15 PM Stent delivery system removed intact. [email or web address] 04:16 PM Guide wire removed intact. [email or web address] 04:18 PM Time: 16:17 Morphine 2 mg Intravenous Given by Blake Tierney RN [email or web address] 04:18 PM Time: 16:03LOC: 4 = Oriented but drowsy [email or web address] 04:18 PM Time: 16:03 Patient comfortable and pain free: Yes [email or web address] 04:18 PM guide wire advanced [email or web address] 04:19 PM 4.0 mm x 10mm [place] balloon across target lesion- successful. reused? No [email or web address] 04:19 PM HR=85 bpm, GGTM=380/75 mmhg, SpO2=92.0 %, Resp=22 B/min 04:21 PM Balloon inflated @ 14 hank for 10 seconds [email or web address] 04:21 PM Balloon inflated @ 16 hank for 10 seconds [email or web address] 04:21 PM Balloon catheter removed intact. [email or web address] 04:22 PM Time: 16:22 Nitroglycerin 100 mcg Intracoronary Given by Neo Kelsey DO [email or web address] 04:23 PM Guide wire removed intact. [email or web address] 04:24 PM Guide catheter removed intact. [email or web address] 04:24 PM hand injected femoral angiogram [email or web address] 04:24 PM Procedure completed at 16:24 04/05/2018 [email or web address] 04:24 PM HR=85 bpm, UVGE=710/72 mmhg, SpO2=91.0 %, Resp=12 B/min 04:25 PM Sign out completed: Radiation Dose 1058.42 mGy, 64310 cGy/cm2 Fluoro Time: 6.7 Isovue 370 - 200ml contrast 80 ml given by Neo Kelsey DO. Complications: None. 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 Cardiac Rehab Consult needed: YesConfirmed administered medications: Yes [email or web address] 04:26 PM Sheath left in place to be pulled on floor/holding areaV+Pad [email or web address] 04:26 PM Isovue 370 - 200ml,1 Bottle(s) used. [email or web address] 04:26 PM Estimated Blood Loss: less than 20cc [email or web address] 04:26 PM Post ECG NSR [email or web address] 04:26 PM Post Blood Pressure 129/72 [email or web address] 04:27 PM 16:26 Post Pulses Bilateral DP & PT 1+ [email or web address] 04:27 PM Information taught Cardiac Cath and PCI 04:27 PM Education needs Procedure, Plan of Care, and Disease Process [email or web address] 04:27 PM Learning barriers :Sedated [email or web address] 04:27 PM Education Methods Verbal [email or web address] 04:27 PM Education evaluation Needs further instruction [email or web address] 04:27 PM Site status No bleeding/hematoma - Rt Groin as reported by Anna Coughlin RT (R) at 16:27 [email or web address] 04:27 PM Opsite applied [email or web address] 04:27 PM no family [email or web address] 04:27 PM Complications: None bw 04:29 PM Vitals capture stopped. 04:29 PM Delay to floor Bed availability bw 04:30 PM Time: 16:30 Angiomax 1.75mg/kg/hr: 33 ml Dc'd Given by Blake Tierney RN [place] pump 04:30 PM Time: 16:30 Morphine 2 mg Intravenous Given by Blake Tierney RN 04:30 PM Time: 16:30 Brilinta 180 mg Orally Given by Blake Tierney RN [place] [id number] 04:33 PM Time: 16:18 Patient comfortable and pain free: Yes 04:33 PM Time: 16:18LOC: 5 = Fully awake and oriented or at pre-proc level [email or web address] 04:33 PM Patient out of room: 16:33 [email or web address] 04:35 PM Report given to sergo SAUCEDO Pt taken to Holding room Room #2. 16:33 [email or web address] 05:[address] Kelsey notified of patient's c/o right groin pain 02/13. New orders received. [email or web address] 05:17 PM Time: 17:17 Percocet 5/325 mg 1 tab Orally Given by Edy Hook RN [email or web address] 06:37 PM Arterial sheath pulled using manual compression and V+ Pad for 15 minutes by Edy Hook RN [email or web address] 06:51 PM Report given to Bianca SAUCEDO Pt taken to 2A Room #37. 18:51 scoates 06:54 PM Report called to SHERYL Valenzuela on 2A. Pt will be transferred at this time scoates Complications Complication None None Hemodynamics Pressures Site Systolic/A Wave Diastolic/V Wave Mean LV 81 2 5 LV 106 -2 7 AO 96 38 72 AO 90 45 68 AO 119 73 94 AO 127 84 103 Post Procedure Information Blood Pressure: 129/72 mmHg Rhythm: NSR Post procedural instructions were given Closure Device Time Device Success/Fail 04/05/2018 6:37:00 PM Manual Compression Successful Site Checks Time Location Status Staff Sheath In? Note 04:27 PM Rt Groin No bleeding/hematoma Madyson Anna RT (R) Yes 04:45 PM Rt Groin No bleeding/ No Hematoma Edy Hook RN Yes 05:00 PM Rt Groin No bleeding/ No Hematoma Edy Hook RN Yes 05:15 PM Rt Groin No bleeding/ No Hematoma Edy Hook RN Yes 05:31 PM Rt Groin No bleeding/ No Hematoma Randa Samuel RN Yes 06:07 PM Rt Groin No bleeding/ No Hematoma Donna Benitez RT Yes 06:15 PM Rt Groin No bleeding/ No Hematoma Randa Samuel RN Yes 06:30 PM Rt Groin No bleeding/ No Hematoma Randa Samuel RN Yes 06:54 PM Rt Groin No bleeding/ No Hematoma Edy Hook RN Pulses Time Site Pre-Procedure Post-Procedure Note 04/05/2018 3:31:00 PM Bilateral DP & PT 1+ 4:26:00 PM Bilateral DP & PT 1+ 04/05/2018 4:45:00 PM Bilateral DP & PT 2+ 04/05/2018 5:00:00 PM Bilateral DP & PT 2+ 04/05/2018 5:32:00 PM Bilateral DP & PT 2+ 04/05/2018 6:15:00 PM Bilateral DP & PT 2+ 04/05/2018 6:30:00 PM Bilateral DP & PT 2+ 04/05/2018 6:54:00 PM Bilateral DP & PT 2+ Updated by Randa Azul RN on 04/05/2018 6:55:10 PM electronically signed on 04/05/2018 6:55:41 PM with status of Final
[2018-04-05] MEDS: *HR* Ticagrelor 90 MG TABLET PO SCH (19:37)
[2018-04-05] MEDS: 0.9 % Sodium Chloride 1,000 ML IVC SCH (19:37)
[2018-04-05] MEDS: *HR* Morphine 2 MG/ML SYRINGE IVP PRN ×2 (19:38→22:38)
[2018-04-05] MEDS ORDERED: Loratadine 10 MG TABLET PO PRN (21:45)
[2018-04-05] MEDS ORDERED: Ipratropium/Albuterol Neb 3 ML IH PRN (21:45)
[2018-04-05] MEDS ORDERED: OLANZapine 10 MG TAB.RAPDIS PO SCH (22:00)
[2018-04-05] MEDS ORDERED: rOPINIRole 0.25 MG TABLET PO SCH (22:00)
[2018-04-05] MEDS: Gabapentin 400 MG CAPSULE PO SCH (22:28)
[2018-04-05] MEDS: clonazePAM 0.5 MG TABLET PO PRN (22:28)
[2018-04-06] MEDS ORDERED: *HR* HYDROcodone/Acet 5/325 mg TABLET PO PRN (01:45)
[2018-04-06] MEDS: 0.9 % Sodium Chloride 1,000 ML IVC SCH (04:12)
[2018-04-06 04:17] LABS: Hematocrit 41.9 % (35.3-44.9); Mean Corpuscular HGB Conc 32.9 g/dL (31.6-35.5); Mean Corpuscular Volume 94.2 fL (83.0-100.0); Mean Platelet Volume 9.3 fL (9.4-12.4); Platelet Count 255 K/mcL (140-400); Red Blood Count 4.45 M/mcL (3.82-4.97); Red Cell Distribution Width 13.2 % (11.5-14.5)
[2018-04-06 04:38] LABS: Alanine Aminotransferase 16 Units/L (7-52); Albumin 3.9 g/dL (3.5-5.7); Albumin/Globulin Ratio 1.7 (1.1-2.2); Alkaline Phosphatase 66 Units/L (34-104); Aspartate Amino Transferase 15 Units/L (13-39); BUN/Creatinine Ratio 15 (6-26); Bilirubin,Total 0.3 mg/dL (0.3-1.0); Blood Urea Nitrogen 10 mg/dL (6-20); Calcium 8.7 mg/dL (8.6-10.3); Carbon Dioxide 25 mEq/L (23-29); Chloride 109 mEq/L (98-107); Globulin 2.3 g/dL (2.4-3.5); Glucose 118 mg/dL (70-105); Magnesium 2.1 mg/dL (1.6-2.6); Osmolality,Calculated 286 (280-300); Potassium 3.8 mEq/L (3.5-5.1); Sodium 138 mEq/L (136-145); Total Protein 6.2 g/dL (6.4-8.9); eGFR For Non-African Americans > 60 (> 60)
[2018-04-06 04:40] LABS: Hemoglobin 13.8 g/dL (11.5-15.4)
[2018-04-06] MEDS: *HR* Morphine 2 MG/ML SYRINGE IVP PRN ×2 (06:38→09:33)
--- NOTE | 2018-04-06 06:53 | Cardiology Progress Note ---
Date of Encounter: 04/06/18 Time of Encounter: 06:50 Assessment and Plan (1) NSTEMI (non-ST elevated myocardial infarction) Current Visit: Yes Status: Acute Per Cardiology: Peak troponin 0.11. Echo showed EF preserved at 60-65%, no significant valvular dysfunction. Status post left heart catheterization with results as follows per Dr. Kelsey: "severe stenosis proximal RCA, 90% to 0% with sequential 3.5 x 18 BMS, (planned colon resection in May), has 60% mid LAD only residual stenosis, continue maximal medical tx". On aspirin, Brilinta-- assistance card provided, statin, beta marilyn, RUPERT inhibitor. Cardiology signing off, all questions answered, follow-up arranged. Discussion w patient/family: The assessment and plan as outlined above was discussed with the patient who expressed understanding and agreement. All questions were answered. Thank you for involving us in the care of your patient. Please call with any questions. Subjective Principal diagnosis: NSTEMI, CAD Interval history: Patient denies any chest pain. Reports mild right groin soreness. Denies any other concerns or complaints. Objective Vital Signs, Last 4 Hours Temp Pulse Resp BP Pulse Ox 04/06/18 04:55 97.5 F L 72 17 100/65 93 General: Conversant, No Apparent Distress HEENT: Atraumatic, Normocephaly, Mucus Membranes Moist Neck: No JVD, Normal carotid pulses Cardiac: Reg Rate and Rhythm, Normal S1 and S2, No Murmur Lungs: Normal Breath Sounds, No Wheeze, Rales, Rhonchi Neuro: Alert and responsive, No focal deficits noted Abdomen: Soft, Non-Tender Skin: No rashes noted on visualized skin, Other (Right groin site draining intact, no hematoma, no bleeding, no ecchymosis, right PT and DP pulses 2+ palpable) Musculoskeletal: No Chest Wall Tenderness Extremities: No Clubbing, No Cyanosis, No Edema, Normal Pulses Results 04/06/18 04:00 04/06/18 04:00 Lab Results Laboratory Tests 04/05/18 04/05/18 04/05/18 09:45 13:44 21:45 Hgb Hct Creatinine Est GFR (Non-Af Amer) Magnesium AST ALT Troponin I 0.05 H* 0.09 H* 0.10 H* 04/06/18 04/06/18 04/06/18 03:54 04:00 04:00 Hgb 13.8 D Hct 41.9 Creatinine 0.67 Est GFR (Non-Af Amer) > 60 Magnesium 2.1 AST 15 ALT 16 Troponin I 0.11 H* ITS Impressions Chest X-Ray 04/05/18 09:31 IMPRESSION: 1. No active pulmonary disease. D/ / Teodoro Nelson MD / Teodoro Nelson MD Interpreting Provider: Teodoro Nelson MD Echocardiogram 04/05/18 12:08 Impressions: LVEF 60-65%. Normal LV chamber size and function. Mild left ventricular diastolic dysfunction. Mild concentric left ventricular hypertrophy. Normal right ventricular structure and function. No evidence of pulmonary hypertension. No significant valvular dysfunction. Left Ventricular Wall Motion: Rest Echo Findings All wall segments showed normal motion. Findings: Study Quality * Technically adequate exam. ECG Findings * Normal sinus rhythm. Left Ventricle * LVEF 60-65%. * Normal LV chamber size and function. * Mild left ventricular diastolic dysfunction. * Mild concentric left ventricular hypertrophy. Right Ventricle * Normal right ventricular structure and function. Left Atrium * Mildly dilated left atrium. Right Atrium * Normal right atrial size. Aortic Valve * Trileaflet aortic valve. * Mildly sclerotic aortic valve leaflets. * No aortic regurgitation. * No aortic stenosis. Mitral Valve * Normal mitral valve structure and function. * No mitral regurgitation. * No mitral stenosis. Tricuspid Valve * Normal tricuspid valve structure and function. * Trace tricuspid regurgitation. * No evidence of pulmonary hypertension. Pulmonic Valve * Normal pulmonic valve structure and function. * No pulmonic regurgitation. Aorta * Normally sized aortic root. Pericardium * The pericardium appears normal. IVC * Normal IVC dimensions and inspiratory collapse. Pulmonary Artery * Normal visualized portions of the main pulmonary artery. Active Medications Acetaminophen (Tylenol) 650 mg PO Q6HR PRN PRN Reason: Mild Pain/Fever Stop: 10/05/18 12:05 Last Admin: 04/06/18 04:12 Dose: 650 mg Hydrocodone Bitart/Acetaminophen (Maribel 5-325 Mg) 1 tab PO Q6HR PRN PRN Reason: Moderate Pain Stop: 10/06/18 01:46 Last Admin: 12/01/18 02:10 Dose: 1 tab Albuterol/Ipratropium (Duoneb) 3 ml IH [id number] PRN PRN Reason: Shortness Of Breath/Wheezing Stop: 10/05/18 21:46 Last Admin: 04/05/18 22:52 Dose: 3 ml Aspirin (Aspirin) 81 mg PO DAILY [facility] Stop: 10/06/18 09:01 Atorvastatin Calcium (Lipitor) 40 mg PO HS [facility] Stop: 10/05/18 21:01 Last Admin: 04/05/18 19:37 Dose: 40 mg Clonazepam (Klonopin) 0.5 mg PO TID PRN PRN Reason: Anxiety Stop: 10/05/18 21:46 Last Admin: 04/05/18 22:28 Dose: 0.5 mg Gabapentin (Neurontin) 400 mg PO TID [facility] Stop: 10/05/18 22:01 Last Admin: 04/05/18 22:28 Dose: 400 mg Sodium Chloride (0.9 % Sodium Chloride) 1,000 mls @ 100 mls/hr IVC .Q10H [facility] Stop: 10/05/18 16:46 Last Admin: 04/06/18 04:12 Dose: 100 mls/hr Lisinopril (Zestril) 5 mg PO DAILY [facility]; Protocol Stop: 10/06/18 09:01 Loratadine (Claritin) 10 mg PO DAILY PRN; Protocol PRN Reason: Allergy Symptoms Stop: 10/05/18 21:46 Metoprolol Tartrate (Lopressor) 25 mg PO BID [facility] Stop: 10/05/18 21:01 Last Admin: 04/05/18 19:37 Dose: 25 mg Montelukast Sodium (Singulair) 10 mg PO HS [facility] Stop: 10/05/18 22:01 Last Admin: 04/05/18 22:28 Dose: 10 mg Morphine Sulfate (Morphine Sulfate) 4 mg IVP Q3H PRN PRN Reason: Severe Pain (7-10) Stop: 10/05/18 16:31 Last Admin: 04/06/18 06:38 Dose: 4 mg Naloxone HCl (Narcan) 0.4 mg IVP Q2MIN PRN PRN Reason: SEE COMMENTS Stop: 10/05/18 12:05 Olanzapine (Zyprexa Zydis) 10 mg PO HS [facility] Stop: 10/05/18 22:01 Last Admin: 04/05/18 22:44 Dose: 10 mg Omeprazole (Prilosec) 20 mg PO DAILY PRN; Protocol PRN Reason: Acid Reflux Stop: 10/05/18 21:46 Paroxetine HCl (Paxil) 20 mg PO DAILY [facility]; Protocol Stop: 10/06/18 09:01 Ropinirole HCl (Requip) 0.25 mg PO HS [facility] Stop: 10/05/18 22:01 Last Admin: 04/05/18 22:28 Dose: 0.25 mg Ticagrelor (Brilinta) 90 mg PO BID [facility] Stop: 10/05/18 21:01 Last Admin: 04/05/18 19:37 Dose: 90 mg - Imaging and Cardiology Echo: report reviewed Cardiac cath: report reviewed Consult Discharge Plan - Plan Referrals: Constantino Larkin MD [Primary Care Provider] -
[2018-04-06] MEDS ORDERED: Aspirin 81 MG TAB.CHEW PO SCH (09:00)
[2018-04-06] MEDS: *HR* Ticagrelor 90 MG TABLET PO SCH (09:33)
[2018-04-06] MEDS: clonazePAM 0.5 MG TABLET PO PRN (09:33)
[2018-04-06] MEDS: Gabapentin 400 MG CAPSULE PO SCH (09:33)
[2018-04-06 11:15] VITALS: BP 114/77
--- NOTE | 2018-04-06 11:27 | Discharge Summary ---
- NOTES TO OUTPATIENT PROVIDER Notes to Outpatient Provider: Patient had bare metal stent in RCA as there is surgery planned in May for diverticulitis. Started on Brillinta, statin and beta marilyn. Orders not resulted at time of discharge: Pending orders 04/05/18 16:30 ECG 12 lead ECG [ECG] Routine 04/06/18 07:00 ECG 12 lead ECG [ECG] Routine Date of Encounter: 04/06/18 Time of Encounter: 11:20 - Discharge Diagnosis (1) NSTEMI (non-ST elevated myocardial infarction) Priority: Primary Status: Acute (2) COPD (chronic obstructive pulmonary disease) Priority: Secondary Status: Chronic Qualifiers: COPD type: unspecified COPD Qualified Code(s): J44.9 - Chronic obstructive pulmonary disease, unspecified (3) Hyperlipidemia Priority: Secondary Status: Chronic Qualifiers: Hyperlipidemia type: pure hypercholesterolemia Qualified Code(s): E78.00 - Pure hypercholesterolemia, unspecified; E78.0 - Pure hypercholesterolemia (4) Obesity (BMI 30-39.9) Priority: Secondary Status: Chronic (5) Type 2 diabetes mellitus Priority: Secondary Status: Chronic Qualifiers: Diabetes mellitus fci 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 Craig is a 48 year old female with past history of diabetes, HLD, COPD, CVA, TAMANNA came in with chest pain. Found to have NSTEMI and had a bare metal stenting of RCA. Also 60% mid LAD. Patient did not have any complications post intervention. Only with pain at the site of catheter entry. Patient would be discharged on aspirin, Brillinta, statin, beta marilyn and RUPERT inhibitor. With minimal wheezing however not complaining of any shortness of breath. History of COPD. I asked to continue her home inhalers. Discharge discussed with: patient, nurse, social work Time spent discussing smoking cessation with patient: more than 10 minutes - Time Spent with Patient Total time spent providing and/or coordinating discharge services: Greater than 30 minutes (40) - Discharge Medications Prescriptions: HYDROcodone/Acet 5/325 mg [Bartlett 5-325 mg] 1 tab PO Q8HR PRN 2 Days #6 tablet PRN Reason: Severe Pain Aspirin 81 mg PO DAILY 30 Days #30 tab.chew Atorvastatin [Lipitor] 40 mg PO HS 30 Days #30 tablet Metoprolol [Lopressor] 25 mg PO BID 30 Days #60 tablet Ticagrelor [Brilinta] 90 mg PO BID 30 Days #60 tablet Home Medications: Lisinopril [Zestril] 5 mg PO DAILY 11/06/17 [History] clonazePAM [Klonopin] 0.5 mg PO TID PRN 11/06/17 [History] Albuterol Sulfate [Proair Hfa] 2 puff IH Q4H PRN 12/31/17 [History] Ipratropium/Albuterol Neb [Duoneb] 3 ml IH [id number] PRN inhsol 12/31/17 [Rx] Umeclidinium [place] [Incruse Ellipta] 62.5 mcg IH DAILY 02/22/18 [History] Fluticasone Propionate Nasal [Flonase] 2 spray NS DAILY PRN 03/29/18 [History] HydrOXYzine Pamoate [Vistaril] 50 mg PO TID PRN 03/29/18 [History] Loratadine [Claritin] 10 mg PO DAILY PRN 03/29/18 [History] Montelukast [Singulair] 10 mg PO HS 03/29/18 [History] OLANZapine [Zyprexa] 10 mg PO HS 03/29/18 [History] Omeprazole [PriLOSEC] 20 mg PO DAILY PRN 03/29/18 [History] Paroxetine HCl [Paxil] 20 mg PO DAILY 03/29/18 [History] rOPINIRole [Requip] 0.25 mg PO HS 03/29/18 [History] Gabapentin [Neurontin] 400 mg PO TID 04/05/18 [History] Aspirin 81 mg PO DAILY 30 Days #30 tab.chew 04/06/18 [Rx] Atorvastatin [Lipitor] 40 mg PO HS 30 Days #30 tablet 04/06/18 [Rx] HYDROcodone/Acet 5/325 mg [Bartlett 5-325 mg] 1 tab PO Q8HR PRN 2 Days #6 tablet 04/06/18 [Rx] Metoprolol [Lopressor] 25 mg PO BID 30 Days #60 tablet 04/06/18 [Rx] Ticagrelor [Brilinta] 90 mg PO BID 30 Days #60 tablet 04/06/18 [Rx] Allergies/Adverse Reactions: Allergy/AdvReac Type Severity Reaction Status Date / Time aspirin Allergy Hives Verified 04/05/18 13:07 dicyclomine [From Bentyl] Allergy See Verified 04/05/18 13:07 Comments ibuprofen Allergy HIVES AND Verified 04/05/18 13:07 VOMITING Iodinated Contrast- Oral and Allergy Difficulty Verified 04/05/18 13:07 IV Dye Breathing ketorolac [From Toradol] Allergy Hives Verified 04/05/18 13:07 naproxen [From Naprosyn] Allergy Hives Verified 04/05/18 13:07 tramadol [From Ultram] Allergy Hives Verified 04/05/18 13:07 Date of admission: 04/05/18 12:38 Primary care physician: Constantino Larkin MD Consults: 04/05/18 11:10 Consult to Cardiology [CONS] Stat Comment: Consulting Provider: Cardiology Leeann Reason for Consult: NSTEMI Time Notified: 11:10 Call Completed: Yes 04/05/18 11:34 Consult to Invasive Line Access Team [CONS] Routine Reason for Consult: limited vascular access with need for emergent procedure/medications Line Type: EPIV 04/05/18 16:30 Consult to Cardiac Rehabilitation-Phase1 [CONS] Routine Comment: Reason for Consult: AMI Call Completed: Yes Consult to Nurse Navigator [CONS] Routine Comment: Discharging clinician: Angeline Vang - Constitutional Vitals: Temp Pulse Resp BP Pulse Ox 97.6 F 76 18 114/77 95 04/06/18 11:14 04/06/18 11:14 04/06/18 11:14 04/06/18 11:14 04/06/18 11:14 General appearance: Present: obese, underweight Exam: General: In no acute distress. Conversant. Obese. Respiratory exam: no accessory muscle use, rales. Mild scattered wheezing. Cardiovascular exam: RRR, +S1, +S2. no murmur, gallop, rubs. GI/Abdominal exam: tenderness at cath site. No signs of bleeding. Non-distended, normal bowel sounds, soft, no peritoneal signs. Extremities exam: full ROM, no pedal edema, warm, pulses palpable in b/l lower extremities. no calf tenderness Neurological exam: CN II-XII intact, AO X3, no focal deficits. no pronater drift, facial droop, speech deficit Skin exam: No skin rash, ulcer, purpura or ecchymosis. - Patient Status Disposition: Home, Self-Care Condition: Undetermined - Discharge Instructions Follow Up With: Constantino Larkin MD [Primary Care Provider] - - Diet and Activity Activity: increase activity as tolerated
== END 2018-04-06 13:12 | disposition home or self-care (01) ==
LOC: EMEROOARM 09:27 → INTOOBSV 12:38 → 2ANU 12:38 → SUATTDRO 12:38 → 2ANU 12:58
PROVIDERS: ADMIT Internal Medicine Cardiovascular Disease; ATTEND Internal Medicine

== ENCOUNTER 2018-04-15 16:33 | Observation (INO) ==
[2018-04-15] MEDS ORDERED: Aspirin 81 MG TAB.CHEW PO ONE (16:53)
--- NOTE | 2018-04-15 17:02 | Emergency Department Note ---
Disposition Clinical Impression: Chest pain Qualifiers: Chest pain type: unspecified Qualified Code(s): R07.9 - Chest pain, unspecified Disposition: Still a Patient Condition: Good Referrals: Constantino Larkin MD [Primary Care Provider] - Forms: ED Satisfaction Letter Time of Disposition: 17:56 General Adult HPI - General Chief complaint: ED Chest Pain Stated complaint: CP Time Seen by Provider: 04/15/18 16:53 Source: patient, family Mode of arrival: ambulatory Limitations: no limitations Nursing Notes Reviewed: Yes Vital Signs Reviewed: Yes - History of Present Illness HPI Narrative: Patient is a 48-year-old female that presents emergency Department with chest pain. Patient states is been ongoing for 1-2 hours. Patient states that she recently had stents put in at the beginning of the month. Patient states that she has 2 stents that are placed. Patient states they are placed here at [facility]. Patient states that the chest pain is located in the center of her chest and shoots into her left shoulder and down her arm. Patient denies any shortness of breath but does state that she has been nauseated and diaphoretic with it. Pain Scale: 9 - Related Data Home Medications Medication Instructions Recorded Confirmed Lisinopril [Zestril] 5 mg PO DAILY 11/06/17 04/05/18 clonazePAM [Klonopin] 0.5 mg PO TID PRN 11/06/17 04/05/18 Albuterol Sulfate [Proair Hfa] 2 puff IH Q4H PRN 12/31/17 04/05/18 Umeclidinium [place] [Incruse 62.5 mcg IH DAILY 02/22/18 04/05/18 Ellipta] Fluticasone Propionate Nasal 2 spray NS DAILY PRN 03/29/18 04/05/18 [Flonase] HydrOXYzine Pamoate [Vistaril] 50 mg PO TID PRN 03/29/18 04/05/18 Loratadine [Claritin] 10 mg PO DAILY PRN 03/29/18 04/05/18 Montelukast [Singulair] 10 mg PO HS 03/29/18 04/05/18 OLANZapine [Zyprexa] 10 mg PO HS 03/29/18 04/05/18 Omeprazole [PriLOSEC] 20 mg PO DAILY PRN 03/29/18 04/05/18 Paroxetine HCl [Paxil] 20 mg PO DAILY 03/29/18 04/05/18 rOPINIRole [Requip] 0.25 mg PO HS 03/29/18 04/05/18 Gabapentin [Neurontin] 400 mg PO TID 04/05/18 04/05/18 Previous Rx's Medication Instructions Recorded Ipratropium/Albuterol Neb [Duoneb] 3 ml IH [id number] PRN inhsol 12/31/17 Aspirin 81 mg PO DAILY 30 Days #30 tab.chew 04/06/18 Atorvastatin [Lipitor] 40 mg PO HS 30 Days #30 tablet 04/06/18 Metoprolol [Lopressor] 25 mg PO BID 30 Days #60 tablet 04/06/18 Ticagrelor [Brilinta] 90 mg PO BID 30 Days #60 tablet 04/06/18 GuaiFENesin/Dextromethorphan 10 ml PO Q6HR PRN #90 syrup 04/12/18 [Robitussin/DM] Lidocaine Patch [Lidoderm 5% patch] 1 each TP DAILY PRN #20 adh..patch 04/12/18 predniSONE [PredniSONE] 40 mg PO DAILY 5 Days tablet 04/12/18 Allergies Allergy/AdvReac Type Severity Reaction Status Date / Time aspirin Allergy Hives Verified 04/05/18 13:07 dicyclomine [From Bentyl] Allergy See Verified 04/05/18 13:07 Comments ibuprofen Allergy HIVES AND Verified 04/05/18 13:07 VOMITING Iodinated Contrast- Oral and Allergy Difficulty Verified 04/05/18 13:07 IV Dye Breathing ketorolac [From Toradol] Allergy Hives Verified 04/05/18 13:07 naproxen [From Naprosyn] Allergy Hives Verified 04/05/18 13:07 tramadol [From Ultram] Allergy Hives Verified 04/05/18 13:07 All systems ED: reviewed and negative except as stated. Constitutional: Denies: fever Cardiovascular: Reports: chest pain Respiratory: Denies: dyspnea Gastrointestinal: Reports: abdominal pain, nausea, vomiting. 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 Absent: respiratory distress, wheezes - Cardiovascular Cardiovascular exam: Present: regular rate, normal rhythm, normal heart sounds, +S1, +S2 - Abdominal Exam Abdominal exam: Present: soft, tenderness (Chronic ), normal bowel sounds Abdominal tenderness: Present: LLQ, moderate - Neurological Exam Neurological exam: Present: alert, oriented X3 - Psychiatric Psychiatric exam: Present: normal affect, normal mood - Skin Skin exam: Present: warm, dry, intact Course Vital Signs Temperature 98.4 F 04/15/18 16:37 Pulse Rate 105 04/15/18 16:37 Respiratory Rate 16 04/15/18 16:37 Blood Pressure 118/84 04/15/18 16:37 O2 Sat by Pulse Oximetry 93 04/15/18 16:37 Temperature 98.4 F 04/15/18 16:48 Pulse Rate 89 04/15/18 18:03 Respiratory Rate 18 04/15/18 18:03 Blood Pressure 107/75 04/15/18 18:09 O2 Sat by Pulse Oximetry 96 04/15/18 18:03 Oxygen Delivery Oxygen Delivery Room Air Medical Decision Making - [facility] Narrative Medical decision making narrative: Due the patient presents the emergency department with reports of chest pain r ecent stent placement is concern for possible cardiac component. We will obtain basic lab for testing as well as a chest x-ray, EKG and the patient was given aspirin and nitroglycerin. Patient will likely require admission to the hospital. Patient's laboratory testing is relatively unremarkable other than a mild leukocytosis however this is a nonspecific finding. Patient's troponin was negative. EKG did not show any new acute ischemic changes. The chest x-ray was negative per radiology read. However based on the patient recently having stents placed here at [facility] and having recurrence of her chest pain that is consistent with possible cardiac involvement I feel that is necessary for the patient be admitted to the hospital for further evaluation and management of her chest pain. Patient is in agreement with this plan. Hospitalist has requested a D-Dimer. D-Dimer was elevated and a CTA was ordered. Due to shift change the patient will be signed out to Dr. Gutierrez. - Medical Records Medical records reviewed: Yes I reviewed the patient's medical records. - Lab Data Lab results reviewed: Yes I reviewed the patient's lab results. Result diagrams: 04/15/18 17:10 04/15/18 17:10 Lab Results 04/15/18 04/15/18 04/15/18 Range/Units 17:10 17:10 17:10 WBC 11.2 H (4.3-11.1) K/mcL RBC 4.65 (3.82-4.97) M/mcL Hgb 14.7 (11.5-15.4) g/dL Hct 43.6 (35.3-44.9) % MCV 93.8 (83.0-100.0) fL MCH 31.6 (28.0-33.3) pg MCHC 33.7 (31.6-35.5) g/dL RDW 13.4 (11.5-14.5) % Plt Count 325 (140-400) K/mcL MPV 9.0 L (9.4-12.4) fL Immature Gran % 0.5 (0-4) % Seg Neutrophils % 59.6 % Lymphocytes % 27.1 % Monocytes % 9.6 % Eosinophils % 2.6 % Basophils % 0.6 % Neutrophils # 6.7 (1.6-8.9) K/mcL Lymphocytes # 3.0 (0.6-4.6) K/mcL Monocytes # 1.1 (0.0-1.3) K/mcL Eosinophils # 0.3 (0.0-0.6) K/mcL Basophils # 0.1 (0.0-0.2) K/mcL PT 11.0 (9.4-12.1) Seconds INR 1.0 APTT 29.2 (26.0-36.0) Seconds D-Dimer 1078 H (0-500) ng/mLFEU Sodium 137 (136-145) mEq/L Potassium 3.7 (3.5-5.1) mEq/L Chloride 105 (98-107) mEq/L Carbon Dioxide 26 (23-29) mEq/L BUN 12 (6-20) mg/dL Creatinine 0.78 (0.60-1.20) mg/dL Est GFR ( Amer) > 60 (> 60) Est GFR (Non-Af Amer) > 60 (> 60) BUN/Creatinine Ratio 15 (6-26) Glucose 95 (70-105) mg/dL Calculated Osmolality 284 (280-300) Calcium 9.6 (8.6-10.3) mg/dL Troponin I < 0.03 (< 0.04) ng/mL - Radiology Data Radiology results reviewed: Yes I reviewed the patient's radiology results. Chest X-Ray 04/15/18 16:54 IMPRESSION: No acute process. D/ / Dhiraj Piper MD / Dhiraj Piper MD Interpreting Provider: Dhiraj Piper MD - EKG Data EKG #1 EKG attestation: Yes I reviewed and interpreted this EKG. EKG results narrative: EKG shows a sinus rhythm rate 89 beats from it, ID interval 145, QRS duration of 94, QTc of 485. There is no evidence of STEMI on EKG. This is compared to previous EKG on 04/12/18. Attestation Statement - Attestation Attestation: I, Uche Hernandez, examined this patient and my medical decision-making was reviewed with the DIGITAL PRODUCTION OPERATOR/PA/Advanced Practice Nurse/Resident Physician. I agree with the documented findings, disposition and treatment plan as described except to the extent set forth below. 48-year-old female presents emergency Department with concerns of acute onset chest pain. Patient states it is associated with nausea, diaphoresis, near syncope. Patient has a history of chronic abdominal pain has been in to the emergency department multiple times over the past year however within the past month she recently had chest pain with elevation of her troponin which required stenting. Patient reports taking her aspirin and Plavix without difficulty. Initial troponin negative. EKG did not show evidence of STEMI. Patient was to be admitted to the hospitalist who then requested to have d-dimer and to rule out PE. It is somewhat reasonable as the patient was recently admitted, was having chest pain however it is not pleuritic, she was not tachycardic, she is not hypoxic. Patient was pretreated with Benadryl and Solu-Medrol. We attempted the CT scan twice, the IVs were large bore IVs in the upper arm which both blue causing side contrast to be in the arm. Pulses are equal in the bilat eral upper extremity. Patient will be admitted to the hospitalist for further care and evaluation to rule out ACS. I think it is low probability that she has a PE however she did have an elevated d-dimer. I discussed the case and presentation with the hospitalist.
[2018-04-15 17:25] LABS: Basophils # 0.1 K/mcL (0.0-0.2); Basophils % 0.6 %; Eosinophils # 0.3 K/mcL (0.0-0.6); Eosinophils % 2.6 %; Hematocrit 43.6 % (35.3-44.9); Hemoglobin 14.7 g/dL (11.5-15.4); Immature Granulocytes % 0.5 % (0-4); Lymphocytes % 27.1 %; Mean Corpuscular HGB Conc 33.7 g/dL (31.6-35.5); Mean Corpuscular Hemoglobin 31.6 pg (28.0-33.3); Mean Corpuscular Volume 93.8 fL (83.0-100.0); Monocytes # 1.1 K/mcL (0.0-1.3); Monocytes % 9.6 %; Neutrophils # 6.7 K/mcL (1.6-8.9); Platelet Count 325 K/mcL (140-400); Red Blood Count 4.65 M/mcL (3.82-4.97); Red Cell Distribution Width 13.4 % (11.5-14.5); Segmented Neutrophils % 59.6 %
[2018-04-15 17:33] LABS: Activated Partial Thrombo Time 29.2 Seconds (26.0-36.0)
[2018-04-15 17:44] LABS: BUN/Creatinine Ratio 15 (6-26); Blood Urea Nitrogen 12 mg/dL (6-20); Calcium 9.6 mg/dL (8.6-10.3); Carbon Dioxide 26 mEq/L (23-29); Chloride 105 mEq/L (98-107); Glucose 95 mg/dL (70-105); Osmolality,Calculated 284 (280-300); Potassium 3.7 mEq/L (3.5-5.1); Sodium 137 mEq/L (136-145); eGFR For Non-African Americans > 60 (> 60)
[2018-04-15 17:45] LABS: Troponin I < 0.03 ng/mL (< 0.04)
[2018-04-15] MEDS: Nitroglycerin 0.4 MG TAB.SUBL SL PRN ×2 (17:56→18:01)
[2018-04-15] MEDS ORDERED: *HR* FentaNYL (PF) 100 MCG/2 ML VIAL IVP ONE ×3 (17:58→22:30)
[2018-04-15] MEDS ORDERED: methylPREDNISolone 125 MG/2 ML VIAL IVP ONE (18:24)
[2018-04-15] MEDS ORDERED: Isovue-370 500 ML INFUS..BTL IV ONE (18:24)
[2018-04-16] MEDS ORDERED: Naloxone 0.4 MG/ML INJ IVP PRN (01:39)
[2018-04-16] MEDS ORDERED: Acetaminophen 325 MG TABLET PO PRN (01:39)
[2018-04-16] MEDS ORDERED: *HR* Dextrose 50 % in Water (Syg) 50 ML SYRINGE IVP PRN (01:51)
[2018-04-16] MEDS ORDERED: Dextrose Gel 15 GM/37.5 ML TUBE PO PRN ×2 (01:51)
[2018-04-16] MEDS ORDERED: D5% in Water 1,000 ML IVC PRN (01:51)
[2018-04-16] MEDS ORDERED: *HR* Morphine 2 MG/ML SYRINGE IVP ONE (01:55)
[2018-04-16] MEDS: *HR* HYDROcodone/Acet 5/325 mg TABLET PO PRN ×2 (01:56→10:08)
[2018-04-16] MEDS: clonazePAM 0.5 MG TABLET PO PRN ×2 (01:56→10:08)
--- NOTE | 2018-04-16 02:54 | Internal Med History&Physical ---
Date of Encounter: 04/16/18 Time of Encounter: 01:00 Internal Medicine - H&P: HPI Chief complaint: CP Admitted From: Emergency Dept Plans for Post Hospital Care: Home History of present illness: Ms. Craig is a 48 year old female w/PMH of asthma, COPD, tumor removal behind sinuses, diabetes, HLD, HTN, and previous IN in early April with placement of stents 2 presents from the ED with chief complaint of chest pain came on at approximately 1500 will patient was doing dishes. Patient describes discomfort as pressure in her left breast and left arm extending all the way down to her fingertips. Associated symptoms: Nausea, dizziness, diaphoresis, and shortness of breath. Patient also reports abdominal discomfort for the past 2 weeks. No alleviating or aggravating factors. Patient denies recent illness, fever, chills, vomiting, headache, changes in vision, unusual bleeding, diarrhea, constipation, numbness, tingling, pre-syncope, or syncope. 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 Bladder Stimulator. cardiac stents x2 - Social History Smoking Status: Current every day smoker Smokeless Tobacco Status: No Alcohol use: none Drug use: none Current living situation: Home Activity Level: Independent ambulation Recent Out of Country Travel Within the Last 8 Weeks: No Exposure or Possible Exposure to Illness During Travel: No - Family History Father Race: Family Member Ethnicity: Non- Living Status: Age at : 63 Cause of : Thyroid cancer Hx Family Cardiac Disorders: Yes (CAD) Hx Family Respiratory Disorders: Yes (COPD) Hx Family Cancer: Yes (Thyroid cancer) Mother Race: Living Status: Age at : 58 Hx Family Cardiac Disorders: Yes (CAD, CHF, stents, defibrillator) Hx Family Cancer: Yes (Colon cancer) Brother Race: Family Member Ethnicity: Non- Living Status: Age at : 52 Hx Family Cardiac Disorders: Yes (IN) Hx Family Endocrine Disorder: Yes (Cirrhosis) Sister Race: Family Member Ethnicity: Non- Living Status: Still Living Hx Family Endocrine Disorder: Yes (DM) Internal Medicine - H&P: Meds Lisinopril [Zestril] 5 mg PO DAILY 11/06/17 [History] clonazePAM [Klonopin] 0.5 mg PO TID PRN 11/06/17 [History] Albuterol Sulfate [Proair Hfa] 2 puff IH Q4H PRN 12/31/17 [History] Ipratropium/Albuterol Neb [Duoneb] 3 ml IH [id number] PRN inhsol 12/31/17 [Rx] Umeclidinium [place] [Incruse Ellipta] 62.5 mcg IH DAILY 02/22/18 [History] Fluticasone Propionate Nasal [Flonase] 2 spray NS DAILY PRN 03/29/18 [History] HydrOXYzine Pamoate [Vistaril] 50 mg PO TID PRN 03/29/18 [History] Loratadine [Claritin] 10 mg PO DAILY PRN 03/29/18 [History] Montelukast [Singulair] 10 mg PO HS 03/29/18 [History] OLANZapine [Zyprexa] 10 mg PO HS 03/29/18 [History] Omeprazole [PriLOSEC] 20 mg PO DAILY PRN 03/29/18 [History] Paroxetine HCl [Paxil] 20 mg PO DAILY 03/29/18 [History] rOPINIRole [Requip] 0.25 mg PO HS 03/29/18 [History] Gabapentin [Neurontin] 400 mg PO TID 04/05/18 [History] Aspirin 81 mg PO DAILY 30 Days #30 tab.chew 04/06/18 [Rx] Atorvastatin [Lipitor] 40 mg PO HS 30 Days #30 tablet 04/06/18 [Rx] Metoprolol [Lopressor] 25 mg PO BID 30 Days #60 tablet 04/06/18 [Rx] Ticagrelor [Brilinta] 90 mg PO BID 30 Days #60 tablet 04/06/18 [Rx] GuaiFENesin/Dextromethorphan [Robitussin/DM] 10 ml PO Q6HR PRN #90 syrup 04/12/18 [Rx] Lidocaine Patch [Lidoderm 5% patch] 1 each TP DAILY PRN #20 adh..patch 04/12/18 [Rx] predniSONE [PredniSONE] 40 mg PO DAILY 5 Days tablet 04/12/18 [Rx] HYDROcodone/Acet 5/325 mg [[place] 5-325 mg] 1 tab PO Q6H PRN 04/16/18 [History] Allergy/AdvReac Type Severity Reaction Status Date / Time aspirin Allergy Hives Verified 04/05/18 13:07 dicyclomine [From Bentyl] Allergy See Verified 04/05/18 13:07 Comments ibuprofen Allergy HIVES AND Verified 04/05/18 13:07 VOMITING Iodinated Contrast- Oral and Allergy Difficulty Verified 04/05/18 13:07 IV Dye Breathing ketorolac [From Toradol] Allergy Hives Verified 04/05/18 13:07 naproxen [From Naprosyn] Allergy Hives Verified 04/05/18 13:07 tramadol [From Ultram] Allergy Hives Verified 04/05/18 13:07 All Systems PM: A 10-system review of systems was performed and is negative for pertinent findin gs except as documented above in the HPI. - Constitutional Constitutional: no chills, no fever(s), no night sweats - EENT Eyes: no change in vision, no discharge, no pain, no photophobia Ears: no ear discharge, no ear pain, no tinnitus Nose, mouth and throat: no dysphagia, no nasal discharge, no neck pain, no sore throat - Breasts Breasts: as per HPI - Cardiovascular Cardiovascular ROS IM: as per HPI, chest pain, diaphoresis, dyspnea, dyspnea on exertion, lightheadedness, no palpitations, no syncope - Respiratory Respiratory: as per HPI, dyspnea, dyspnea on exertion, no cough, no wheezing, no excessive phlegm production - Gastrointestinal Gastrointestinal: as per HPI, nausea, no abdominal pain, no diarrhea, no hematemesis, no hematochezia, no melena, no vomiting - Genitourinary Menstruation: post hysterectomy - Musculoskeletal Musculoskeletal ROS IM: no numbness, no tingling - Integumentary Integumentary IM: no rash, no unusual bruising - Neurological Neurological ROS: no confusion, no convulsions, no focal weakness, no numbness, no tingling, no tremor(s) - Psychiatric Psychiatric: as per HPI - Endocrine Endocrine IM: as per HPI - Hematologic/Lymphatic Hematologic/Lymphatic: no easy bruising - Allergic/Immunologic Allergic/Immunologic: as per HPI - Constitutional Vitals: Temp Pulse Resp BP Pulse Ox 98.0 F 77 16 125/70 93 04/15/18 23:58 04/15/18 23:58 04/15/18 23:58 04/15/18 23:58 04/15/18 23:58 General appearance: Present: cooperative, mild distress (CP/SOB), A&O X 3, pleasant, obese, answers questions appropriately Exam: Patient examined at bedside. Patient resting in bed and reporting intermittent chest pain and shortness of breath. Pt. also reports dizziness w/standing. Orthostatic BPs and vital signs ordered. Falls precautions and up with assist o nly. Reports nausea and abdominal pain. Patient denies any other symptoms or complaints at this time. VS: 98.0F temp, HR 77, RR 16, BP 125/70, SPO2 93% on room air. - Head Head exam: Present: atraumatic, normocephalic - Eye Eye exam: Present: PERRL, conjuntiva pink, sclera anicteric Pupils: Present: PERRL - ENT ENT exam: Present: normal exam - Neck Neck exam general surgery: Present: normal inspection, supple, trachea midline. Absent: lymphadenopathy - Respiratory Respiratory exam: Present: CTAB. Absent: accessory muscle use, rales, rhonchi, wheezes - Cardiovascular Cardiovascular exam: Present: RRR, +S1, +S2. Absent: diastolic murmur, gallop, rubs, systolic murmur - GI/Abdominal GI/Abdominal exam: Present: normal bowel sounds, soft, no peritoneal signs. Absent: distended, tenderness - Rectal Rectal exam: Present: deferred - Additional comments: exam deferred. - Extremities Exam Extremities exam: Present: warm, radial pulses palpable and symmetrical. Absent : calf tenderness, cyanotic, pedal edema - Back Exam Back exam: Present: normal inspection - Neurological Exam Neurological exam: Present: alert, CN II-XII intact, oriented X3, no focal deficits. Absent: pronater drift, facial droop, speech deficit - Psychiatric Psychiatric exam: Present: normal affect, normal mood - Skin Skin exam: Present: dry, intact Internal Med - H&P Results - Labs CBC & Chem 7: 04/15/18 17:10 04/15/18 17:10 Labs: Short CBC 04/15/18 Range/Units 17:10 WBC 11.2 H (4.3-11.1) K/mcL Hgb 14.7 (11.5-15.4) g/dL Hct 43.6 (35.3-44.9) % Plt Count 325 (140-400) K/mcL Neutrophils # 6.7 (1.6-8.9) K/mcL BMP 04/15/18 17:10 Sodium 137 Potassium 3.7 Chloride 105 Carbon Dioxide 26 BUN 12 Creatinine 0.78 Glucose 95 Calcium 9.6 Cardiac Enzymes 04/15/18 Range/Units 17:10 Troponin I < 0.03 (< 0.04) ng/mL - EKG Data EKG shows normal: sinus rhythm - EKG Data Prior EKG available for review: no EKG comments: 04/16/18 03:05 EKG dated 04/15/18 shows sinus rhythm with borderline prolonged QT interval. - Impressions ITS Impressions Chest X-Ray 04/15/18 16:54 IMPRESSION: No acute process. D/ / Dhiraj Piper MD / Dhiraj Piper MD Interpreting Provider: Dhiraj Piper MD - Diagnostic Studies Chest x-ray Additional comments: Impressions Chest X-Ray 04/15/18 16:54 IMPRESSION: No acute process. D/ / Dhiraj Piper MD / Dhiraj Piper MD Interpreting Provider: Dhiraj Piper MD - Assessment and plan (1) Chest pain Current Visit: Yes Status: Acute Assessment and plan: Acute CP that came on at approximately 1500 while patient was doing dishes. Patient describes discomfort as pressure in her left breast and left arm extending all the way down to her fingertips. Associated symptoms: Nausea, di zziness, diaphoresis, and shortness of breath. Recent IN in early April w/stents x2. D-dimer 1078 on admission which is concerning for possible PE. Pt. on Brilinta. Stat CTA of the chest ordered to r/o PE. Pt. lost IV access and is a hard stick so waiting on ordered EPIV to be inserted. Initial troponin <0.03. Will trend. Continuous cardiac telemetry. Supplemental O2 w/titration and SpO2 monitoring. Echocardiogram on 04/05/18 shows LVEF of 60-65%, normal LV chamber size and function, mild left ventricular diastolic dysfunction, mild concentric left ventricular hypertrophy, normal right ventricular structure and function, no evidence of pulmonary hypertension, and no significant valvular dysfunction. NPO on Sunday 00:01 if troponins remain WNL for nuclear pharm stress test. Lipitor 80 mg ONCE. Continue pts. Brilinta. Consider adding Cardiology consult if troponins and/or stress test results abnormal. Pt. is high risk for cardiac event and further morbidity d/t current CP, recent IN resulting in 2 stents, elevated D-dimer w/concern for possible PE; and risk factors of obesity, di abetes, HLD, HTN, and current tobacco abuse. Observation. Qualifiers: Chest pain type: other chest pain Qualified Code(s): R07.89 - Other chest pain; R07.8 - Other chest pain (2) Recent myocardial infarction Current Visit: Yes Status: Acute Assessment and plan: Acute and recent IN in the beginning of April w/stents x2. Echocardiogram dated 04/05/18 shows LVEF of 60-65%, normal LV chamber size and function, mild left ventricular diastolic dysfunction, mild concentric left ventricular hypertrophy, normal right ventricular structure and function, no evidence of pulmonary hypertension, and no significant valvular dysfunction. Continue patient's Brilinta, HTN and HLD medications. Continuous cardiac telemetry. Trending troponins. (3) SOB (shortness of breath) Current Visit: Yes Status: Acute Assessment and plan: Acute on chronic SOB. Pt. reports SOB w/CP sx but also has hx of COPD. continue patient's inhalers. Xopenex IH. Mucinex for cough. Supplemental O2 with titration and SPO2 monitoring. (4) Nausea Current Visit: Yes Status: Acute Assessment and plan: Acute nausea accompanying CP sx. 12.5 mg IVP Phenergan Q6HR PRN for N/V. GI cocktail. (5) Abdominal pain Current Visit: Yes Status: Acute Assessment and plan: Acute generalized abdominal pain for the past two weeks. Pt. reports vomiting once at onset. IVP Phenergan 12.5 mg Q6HR PRN for N/V. GI cocktail. Consider adding CT of the abdomen/pelvis if pain persists. Monitor I&O. Qualifiers: Abdominal location: generalized Qualified Code(s): R10.84 - Generalized abdominal pain (6) HTN (hypertension) Current Visit: Yes Status: Chronic Assessment and plan: Hx of chronic HTN. Monitor patient vital signs. Continue patient's Metoprolol. Qualifiers: Hypertension type: essential hypertension Qualified Code(s): I10 - Essential (primary) hypertension (7) HLD (hyperlipidemia) Current Visit: Yes Status: Chronic Assessment and plan: Hx of chronic HLD. Lipid panel in a.m. labs. 80 mg Lipitor ONCE. Continue 40 mg Lipitor HS on Sunday. Qualifiers: Hyperlipidemia type: pure hypercholesterolemia Qualified Code(s): E78.00 - Pure hypercholesterolemia, unspecified; E78.0 - Pure hypercholesterolemia (8) COPD (chronic obstructive pulmonary disease) Current Visit: Yes Status: Chronic Assessment and plan: Hx of chronic COPD. Stable. No acute process on CXR. Will continue pts. inhalers. Xopenex 1.25 IH Q6HR. Mucinex for cough. Supplemental O2 with titration and SPO2 monitoring. Qualifiers: COPD type: unspecified COPD Qualified Code(s): J44.9 - Chronic obstructive pulmonary disease, unspecified (9) GERD (gastroesophageal reflux disease) Current Visit: Yes Status: Chronic Assessment and plan: Hx of chronic GERD. 20 mg Prilosec PO ordered. GI cocktail. Phenergan 12.5 mg IVP every 6 hours when necessary for nausea and vomiting. Monitor I&O. Qualifiers: Esophagitis presence: esophagitis presence not specified Qualified Code(s): K21.9 - Gastro-esophageal reflux disease without esophagitis (10) Type 2 diabetes mellitus Current Visit: Yes Status: Chronic Assessment and plan: Hx of chronic diabetes. Will hold pts. Incruse Ellipta and administer low dose correction sliding scale insulin w/hypoglycemic protocol. BG checks ACHS and Q6 while pt. is NPO for stress test. A1c in a.m. labs. Qualifiers: Diabetes mellitus penitentiary insulin use: without penitentiary use Diabetes mellitus complication status: without complication Qualified Code(s): E11.9 - Type 2 diabetes mellitus without complications (11) Obesity (BMI 30-39.9) Current Visit: Yes Status: Chronic Assessment and plan: Hx of chronic obesity. Lifestyle and diet modifications encouraged. (12) DVT prophylaxis Current Visit: Yes Status: Acute Assessment and plan: Continue pts. Brilinta for DVT prophylaxis. Monitor pt. for signs of bleeding. - Time Spent With Patient Total time spent is greater than 50% in coordination of care (as documented) at patient's floor/unit and/or counseling patient: Greater than 35 minutes
[2018-04-16] MEDS ORDERED: GI Cocktail 40 ML EACH PO ONE (03:06)
[2018-04-16] MEDS ORDERED: *HR* Promethazine 25 MG/ML VIAL IVP PRN (03:26)
[2018-04-16] MEDS: Levalbuterol Neb 1.25 MG/3 ML IH SCH ×2 (04:05→10:54)
[2018-04-16] MEDS ORDERED: methylPREDNISolone 125 MG/2 ML VIAL IVP ONE (05:33)
[2018-04-16 05:44] LABS: Basophils % 0.2 %; Hematocrit 40.3 % (35.3-44.9); Hemoglobin 13.4 g/dL (11.5-15.4); Immature Granulocytes % 0.7 % (0-4); Lymphocytes % 12.1 %; Mean Corpuscular HGB Conc 33.3 g/dL (31.6-35.5); Mean Corpuscular Hemoglobin 30.9 pg (28.0-33.3); Mean Corpuscular Volume 93.1 fL (83.0-100.0); Monocytes # 0.1 K/mcL (0.0-1.3); Monocytes % 1.6 %; Neutrophils # 7.1 K/mcL (1.6-8.9); Platelet Count 316 K/mcL (140-400); Red Blood Count 4.33 M/mcL (3.82-4.97); Red Cell Distribution Width 13.3 % (11.5-14.5); Segmented Neutrophils % 85.4 %
[2018-04-16] MEDS ORDERED: Regadenoson 0.4 MG/5 ML SYRINGE IVP ONE (05:54)
[2018-04-16 05:55] LABS: Alanine Aminotransferase 14 Units/L (7-52); Albumin 4.1 g/dL (3.5-5.7); Albumin/Globulin Ratio 1.6 (1.1-2.2); Alkaline Phosphatase 69 Units/L (34-104); Aspartate Amino Transferase 12 Units/L (13-39); BUN/Creatinine Ratio 17 (6-26); Bilirubin,Total 0.3 mg/dL (0.3-1.0); Blood Urea Nitrogen 12 mg/dL (6-20); Calcium 9.7 mg/dL (8.6-10.3); Carbon Dioxide 24 mEq/L (23-29); Chloride 105 mEq/L (98-107); Chol/HDL Ratio 6.4 (0-4.9); Cholesterol 225 mg/dL (< 200); Globulin 2.6 g/dL (2.4-3.5); Glucose 179 mg/dL (70-105); HDL Cholesterol 35 mg/dL (40-59); LDL Cholesterol,Calculated 157 mg/dL (0-99); Magnesium 2.2 mg/dL (1.6-2.6); Osmolality,Calculated 286 (280-300); Potassium 4.3 mEq/L (3.5-5.1); Sodium 136 mEq/L (136-145); Total Protein 6.7 g/dL (6.4-8.9); Triglycerides 166 mg/dL (< 150); eGFR For Non-African Americans > 60 (> 60)
[2018-04-16 06:44] LABS: Estimated Average Glucose 123 mg/dl; Hemoglobin A1C 5.9 %
[2018-04-16] MEDS ORDERED: *HR* Ticagrelor 90 MG TABLET PO SCH (09:00)
[2018-04-16] MEDS: Insulin LISPRO 300 UNITS/3 ML VIAL SQ SCH ×2 (10:08→12:49)
[2018-04-16 11:38] VITALS: BP 116/71
--- NOTE | 2018-04-16 13:03 | Discharge Summary ---
- NOTES TO OUTPATIENT PROVIDER Notes to Outpatient Provider: Follow up with PCP in one week. Follow-up with cardiology in one week. Please quit smoking. Please continue taking your heart medications regularly as scheduled Orders not resulted at time of discharge: Pending orders 04/16/18 01:55 NM toney perf SPECT multi [NM] Routine 04/16/18 07:45 Troponin I Q6H 04/17/18 04:00 Complete Blood Count [HEME] AM 0400 Comprehensive Metabolic Panel AM 0400 04/18/18 04:00 Complete Blood Count [HEME] AM 0400 Comprehensive Metabolic Panel AM 0400 04/19/18 04:00 Complete Blood Count [HEME] AM 0400 Comprehensive Metabolic Panel AM 0400 Date of Encounter: 04/16/18 Time of Encounter: 13:02 - Discharge Diagnosis (1) Chest pain Priority: Primary Status: Acute Qualifiers: Chest pain type: other chest pain Qualified Code(s): R07.89 - Other chest pain; R07.8 - Other chest pain (2) SOB (shortness of breath) Priority: Secondary Status: Acute (3) COPD (chronic obstructive pulmonary disease) Priority: Secondary Status: Chronic Qualifiers: COPD type: unspecified COPD Qualified Code(s): J44.9 - Chronic obstructive pulmonary disease, unspecified (4) Obesity (BMI 30-39.9) Priority: Secondary Status: Chronic (5) Type 2 diabetes mellitus Priority: Secondary Status: Chronic Qualifiers: Diabetes mellitus longterm insulin use: without longterm use Diabetes mellitus complication status: without complication Qualified Code(s): E11.9 - Type 2 diabetes mellitus without complications (6) GERD (gastroesophageal reflux disease) Priority: Secondary Status: Chronic Qualifiers: Esophagitis presence: esophagitis presence not specified Qualified Code(s): K21.9 - Gastro-esophageal reflux disease without esophagitis (7) HTN (hypertension) Priority: Secondary Status: Chronic Qualifiers: Hypertension type: essential hypertension Qualified Code(s): I10 - Essential (primary) hypertension (8) HLD (hyperlipidemia) Priority: Secondary Status: Chronic Qualifiers: Hyperlipidemia type: pure hypercholesterolemia Qualified Code(s): E78.00 - Pure hypercholesterolemia, unspecified; E78.0 - Pure hypercholesterolemia (9) Recent myocardial infarction Priority: Secondary Status: Acute (10) DVT prophylaxis Priority: Secondary Status: Acute (11) Tobacco dependence Priority: Secondary Status: Acute (12) Acute bronchitis Priority: Primary Status: Acute Qualifiers: Bronchitis organism: unspecified organism Qualified Code(s): J20.9 - Acute bronchitis, unspecified (13) Chronic narcotic dependence Priority: Secondary Status: Acute Hospital course: Ms. Craig is a 48 year old female w PMH of asthma, COPD,, diabetes, HLD, HTN, and Recent [place] in early April with C showed severe one vessel CAD had successful placement of stent to proximal RCA and chronic tobacco dependence patient now she presents to ED with chief complaint of chest pain while pt was doing dishes. She also c/o cough with greenish expectation and mild SOB. Patient was admitted in the hospital and placed on the tubular products fabricator. Her serial troponin came back is negative. I reviewed her EKG which did not show any acute ischemic changes no ST, T changes. Patient denied any active chest pain. At this point I started her on Imdur 30mg Daily. Patient presentation also consistent with acute purulent bronchitis, so recommend to take oral antibiotic Levaquin for 3 days. Also I counseled the patient about quitting smoking - Time Spent with Patient Total time spent providing and/or coordinating discharge services: - Discharge Medications Prescriptions: Isosorbide MONOnitrate (24 HR) [Imdur] 30 mg PO DAILY #30 tab.er.24h Levofloxacin [Levaquin] 750 mg PO DAILY #3 tablet Nicotine Patch [Nicoderm] 21 mg TD DAILY #30 patch.td24 Home Medications: Lisinopril [Zestril] 5 mg PO DAILY 11/06/17 [History] clonazePAM [Klonopin] 0.5 mg PO TID PRN 11/06/17 [History] Albuterol Sulfate [Proair Hfa] 2 puff IH Q4H PRN 12/31/17 [History] Umeclidinium [place] [Incruse Ellipta] 62.5 mcg IH DAILY 02/22/18 [History] HydrOXYzine Pamoate [Vistaril] 50 mg PO TID PRN 03/29/18 [History] OLANZapine [Zyprexa] 10 mg PO HS 03/29/18 [History] Omeprazole [PriLOSEC] 20 mg PO DAILY PRN 03/29/18 [History] Paroxetine HCl [Paxil] 20 mg PO DAILY 03/29/18 [History] rOPINIRole [Requip] 0.25 mg PO HS 03/29/18 [History] Gabapentin [Neurontin] 400 mg PO TID 04/05/18 [History] Aspirin 81 mg PO DAILY 30 Days #30 tab.chew 04/06/18 [Rx] Metoprolol [Lopressor] 25 mg PO BID 30 Days #60 tablet 04/06/18 [Rx] Ticagrelor [Brilinta] 90 mg PO BID 30 Days #60 tablet 04/06/18 [Rx] Atorvastatin [Lipitor] 40 mg PO HS 04/16/18 [History] Isosorbide MONOnitrate (24 HR) [Imdur] 30 mg PO DAILY #30 tab.er.24h 04/16/18 [Rx] Levofloxacin [Levaquin] 750 mg PO DAILY #3 tablet 04/16/18 [Rx] Loratadine [Claritin] 10 mg PO DAILY 04/16/18 [History] Mometasone/Formoterol [[place] 200 Mcg/5 Mcg Inhaler] 2 puff IH BID 04/16/18 [History] Nicotine Patch [Nicoderm] 21 mg TD DAILY #30 patch.td24 04/16/18 [Rx] Allergies/Adverse Reactions: Allergy/AdvReac Type Severity Reaction Status Date / Time aspirin Allergy Hives Verified 04/05/18 13:07 dicyclomine [From Bentyl] Allergy See Verified 04/05/18 13:07 Comments ibuprofen Allergy HIVES AND Verified 04/05/18 13:07 VOMITING Iodinated Contrast- Oral and Allergy Difficulty Verified 04/05/18 13:07 IV Dye Breathing ketorolac [From Toradol] Allergy Hives Verified 04/05/18 13:07 naproxen [From Naprosyn] Allergy Hives Verified 04/05/18 13:07 tramadol [From Ultram] Allergy Hives Verified 04/05/18 13:07 Date of admission: 04/15/18 23:17 Primary care physician: Constantino Larkin MD Consults: 04/16/18 01:43 Consult to Packing And Stamping Machine Operator [CONS] Routine Reason for SW Consult: Please assess patient for possible home needs for post-discharge planning. - Constitutional Vitals: Temp Pulse Resp BP Pulse Ox 98.0 F 89 14 116/71 94 04/16/18 11:34 04/16/18 11:34 04/16/18 11:34 04/16/18 11:34 04/16/18 11:34 General appearance: Present: cooperative, A&O X 3, pleasant, obese, answers questions appropriately Exam: Gen: Alert, awake, Oriented to time,place and person Chest: Diminished breath sounds B/L, No wheezing, No crackles, No rales Heart: S1S2+ RRR No murmurs Abd: Soft, NT, BS +, No organomegaly Ext: No edema, pulses are palpable, No calf tenderness Neuro : Benign findings Skin: No rash. - Patient Status Disposition: Home, Self-Care Condition: Good Overall status at discharge: patient is back to baseline - Discharge Instructions Follow Up With: Constantino Larkin MD [Primary Care Provider] - 04/19/18 1:00 pm Mary Leon DO [Partnered Physician] - - Diet and Activity Activity: increase activity as tolerated Diet: low salt diet
[2018-04-16] MEDS ORDERED: Insulin LISPRO 300 UNITS/3 ML VIAL SQ SCH (21:00)
--- NOTE | 2018-04-17 15:36 | Electrocardiograph Report ---
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
== END 2018-04-16 13:40 | disposition home or self-care (01) ==
LOC: EMEROOARM 16:33 → 3BNU 16:33
PROVIDERS: ADMIT Internal Medicine; ATTEND Internal Medicine

== ENCOUNTER 2019-03-22 16:06 | Inpatient (IN) ==
[2019-03-22] MEDS ORDERED: Nitroglycerin 0.4 MG TAB.SUBL SL PRN (16:14)
[2019-03-22] MEDS ORDERED: 0.9 % Sodium Chloride 1,000 ML ONE ×2 (16:17→16:23)
[2019-03-22] MEDS ORDERED: 0.9 % Sodium Chloride 500 ML IVC ONE (16:26)
[2019-03-22 16:45] LABS: Basophils % 0.3 %; Eosinophils % 0.3 %; Hematocrit 27.1 % (35.3-44.9); Hemoglobin 8.8 g/dL (11.5-15.4); Immature Granulocytes % 0.7 % (0-4); Lymphocytes # 0.3 K/mcL (0.6-4.6); Lymphocytes % 2.5 %; Mean Corpuscular HGB Conc 32.5 g/dL (31.6-35.5); Mean Corpuscular Hemoglobin 26.7 pg (28.0-33.3); Mean Corpuscular Volume 82.4 fL (83.0-100.0); Mean Platelet Volume 8.4 fL (9.4-12.4); Monocytes # 0.2 K/mcL (0.0-1.3); Monocytes % 1.5 %; Platelet Count 218 K/mcL (140-400); Red Blood Count 3.29 M/mcL (3.82-4.97); Red Cell Distribution Width 16.7 % (11.5-14.5); Segmented Neutrophils % 94.7 %; White Blood Count 10.5 K/mcL (4.3-11.1)
[2019-03-22] MEDS: 0.9 % Sodium Chloride 1,000 ML IVC SCH ×2 (16:53→16:54)
[2019-03-22] MEDS ORDERED: Piperacillin/Tazobactam 3.375 GM in 0.9 % Sodium Chloride Mini Bag 100 ML IVPB ONE (16:55)
[2019-03-22] MEDS ORDERED: levoFLOXacin 750 MG/150 ML 750 MG/150 ML BAG IVPB ONE (16:56)
[2019-03-22] MEDS ORDERED: *HR* Norepinephrine 4 MG/4 ML VIAL IVC ONE (16:58)
[2019-03-22] MEDS ORDERED: 0.9 % Sodium Chloride 250 ML ONE (16:58)
[2019-03-22] MEDS ORDERED: Norepinephrine 4 MG in 0.9 % Sodium Chloride 250 ML IVC SCH (17:00)
[2019-03-22 17:17] LABS: Alanine Aminotransferase 33 Units/L (7-52); Albumin 2.4 g/dL (3.5-5.7); Alkaline Phosphatase 221 Units/L (34-104); Aspartate Amino Transferase 48 Units/L (13-39); BUN/Creatinine Ratio 22 (6-26); Bilirubin,Direct 0.2 mg/dL (0.0-0.2); Bilirubin,Indirect 0.2 mg/dL (0.0-1.0); Bilirubin,Total 0.4 mg/dL (0.3-1.0); Blood Urea Nitrogen 11 mg/dL (6-20); Calcium 6.8 mg/dL (8.6-10.3); Carbon Dioxide 18 mEq/L (23-29); Chloride 112 mEq/L (98-107); Globulin 2.5 g/dL (2.4-3.5); Glucose 85 mg/dL (70-105); Lipase 20 Units/L (11-82); Osmolality,Calculated 287 (280-300); Sodium 139 mEq/L (136-145); Total Protein 4.9 g/dL (6.4-8.9); Troponin I 0.09 ng/mL (< 0.04); eGFR For African Americans > 60 (> 60); eGFR For Non-African Americans > 60 (> 60)
[2019-03-22] MEDS ORDERED: Potassium Chloride 40 MEQ, Lidocaine 1% 2 ML in 0.9 % Sodium Chloride 500 ML IVPB ONE (17:26)
[2019-03-22] MEDS ORDERED: *HR* FentaNYL (PF) 100 MCG/2 ML VIAL IVP ONE (18:11)
[2019-03-22] MEDS ORDERED: *HR* Heparin 5,000 UNIT/ML VIAL IVP ONE (18:51)
[2019-03-22] MEDS ORDERED: *HR* Ticagrelor 90 MG TABLET PO ONE (18:51)
[2019-03-22] MEDS ORDERED: *HR* Ticagrelor 90 MG TABLET ONE (18:53)
[2019-03-22] MEDS ORDERED: *HR* Heparin 5,000 UNIT/ML VIAL ONE (18:53)
[2019-03-22] MEDS ORDERED: ISOVUE-370 200 ML INFUS..BTL ONE ×2 (19:00→20:18)
[2019-03-22] MEDS ORDERED: Heparin 1,000 UNITS/500 mL 500 ML ONE ×2 (19:00→20:18)
[2019-03-22] MEDS ORDERED: 0.9 % Sodium Chloride 2,000 ML ONE (19:00)
[2019-03-22] MEDS ORDERED: *HR* Heparin 10,000 UNIT/10 ML VIAL ONE (19:00)
[2019-03-22] MEDS ORDERED: Nitroglycerin 1,000 MCG/10 ML VIAL IV ONE (19:01)
[2019-03-22] MEDS ORDERED: *HR* Midazolam HCl 2 MG/2 ML VIAL ONE (19:23)
[2019-03-22] MEDS ORDERED: Verapamil 5 MG/2 ML VIAL ONE (19:23)
[2019-03-22] MEDS ORDERED: *HR* FentaNYL (PF) 100 MCG/2 ML VIAL ONE (19:23)
[2019-03-22 19:35] VITALS: BP 98/66
[2019-03-22] MEDS ORDERED: methylPREDNISolone 125 MG/2 ML VIAL ONE (19:56)
[2019-03-22] MEDS ORDERED: Naloxone 0.4 MG/ML INJ IVP PRN (20:04)
[2019-03-22] MEDS ORDERED: Vasopressin 40 UNIT in D5% in Water 100 ML IVC SCH (20:15)
[2019-03-22] MEDS ORDERED: FentaNYL (PF) 1,000 MCG in 0.9 % Sodium Chloride 80 ML IVC SCH (20:15)
[2019-03-22 20:52] LABS: INR 1.3; Prothrombin Time 14.2 Seconds (9.4-12.1)
[2019-03-22 20:55] LABS: Magnesium 1.1 mg/dL (1.6-2.6); Phosphorous 2.7 mg/dL (2.7-4.5)
[2019-03-22] MEDS ORDERED: RINGERS LACTATED IVC ONE (20:57)
[2019-03-22] MEDS ORDERED: Clindamycin 600 MG/50 ML 600 MG/50 ML IV.SOLN IVPB SCH (21:00)
[2019-03-22] MEDS ORDERED: Calcium Gluconate 1gm/50mL 1 GM/50 ML BAG IVPB ONE (21:00)
[2019-03-22] MEDS ORDERED: Vancomycin (wt based) 1,000 MG VIAL IVPB SCH (21:00)
[2019-03-22 21:09] LABS: Thyroid Stimulating Hormone 0.324 mcIU/mL (0.340-5.600)
[2019-03-22] MEDS ORDERED: 0.9 % Sodium Chloride 1,000 ML IVC SCH (21:30)
[2019-03-22] MEDS ORDERED: 0.9 % Sodium Chloride 500 ML ONE (21:30)
[2019-03-22] MEDS ORDERED: *HR* HYDROmorphone 2 MG/ML SYRINGE IVP ONE (21:37)
[2019-03-23] MEDS ORDERED: Piperacillin/Tazobactam 3.375 GM in 0.9 % Sodium Chloride Mini Bag 100 ML IVPB SCH
[2019-03-23 12:55] LABS: Acinetobacter baumannii by PCR Not Detected (Not Detect); Candida albicans by PCR Not Detected (Not Detect); Candida glabrata by PCR Not Detected (Not Detect); Candida krusei by PCR Not Detected (Not Detect); Candida parapsilosis by PCR Not Detected (Not Detect); Candida tropicalis by PCR Not Detected (Not Detect); Enterobacter cloacae Cmplx PCR Not Detected (Not Detect); Enterobacteriaceae by PCR Not Detected (Not Detect); Enterococcus by PCR Not Detected (Not Detect); Escherichia coli by PCR Not Detected (Not Detect); Klebsiella oxytoca by PCR Not Detected (Not Detect); Klebsiella pneumoniae by PCR Not Detected (Not Detect); Proteus by PCR Not Detected (Not Detect); Pseudomonas aeruginosa by PCR Not Detected (Not Detect); Serratia marcescens by PCR Not Detected (Not Detect); Staphylococcus aureus by PCR Not Detected (Not Detect); Staphylococcus by PCR Not Detected (Not Detect); Streptococcus agalactiae(B)PCR Not Detected (Not Detect); Streptococcus by PCR Not Detected (Not Detect); Streptococcus pneumoniae PCR Not Detected (Not Detect); Streptococcus pyogenes (A) PCR Not Detected (Not Detect)
== END 2019-03-22 22:30 | disposition short-term general hospital (02) | DRG 720 ==
LOC: EMEROOARM 16:06 → ICNU 19:43 → EMEROOARM 19:45 → ICNU 19:48
PROVIDERS: ADMIT Internal Medicine Interventional Cardiology; ATTEND Internal Medicine Interventional Cardiology

== ENCOUNTER 2019-04-26 15:57 | Observation (INO) ==
[2019-04-26] MEDS ORDERED: Ondansetron 4 MG/2 ML VIAL IVP ONE (16:07)
[2019-04-26] MEDS ORDERED: 0.9 % Sodium Chloride 1,000 ML IVC ONE (16:07)
[2019-04-26] MEDS ORDERED: *HR* FentaNYL (PF) 100 MCG/2 ML VIAL IVP ONE (16:58)
[2019-04-26 17:53] LABS: Basophils # 0.1 K/mcL (0.0-0.2); Basophils % 0.6 %; Eosinophils # 0.4 K/mcL (0.0-0.6); Eosinophils % 4.6 %; Hematocrit 29.5 % (35.3-44.9); Immature Granulocytes % 0.4 % (0-4); Lymphocytes # 1.7 K/mcL (0.6-4.6); Lymphocytes % 20.3 %; Mean Corpuscular HGB Conc 30.5 g/dL (31.6-35.5); Mean Corpuscular Hemoglobin 26.4 pg (28.0-33.3); Mean Corpuscular Volume 86.5 fL (83.0-100.0); Mean Platelet Volume 9.2 fL (9.4-12.4); Monocytes # 0.9 K/mcL (0.0-1.3); Monocytes % 10.7 %; Neutrophils # 5.3 K/mcL (1.6-8.9); Platelet Count 381 K/mcL (140-400); Red Blood Count 3.41 M/mcL (3.82-4.97); Segmented Neutrophils % 63.4 %; White Blood Count 8.3 K/mcL (4.3-11.1)
[2019-04-26 17:58] LABS: Prothrombin Time 11.4 Seconds (9.4-12.1)
[2019-04-26 18:11] LABS: Alanine Aminotransferase 12 Units/L (7-52); Albumin 3.2 g/dL (3.5-5.7); Albumin/Globulin Ratio 1.3 (1.1-2.2); Alkaline Phosphatase 70 Units/L (34-104); Aspartate Amino Transferase 15 Units/L (13-39); BUN/Creatinine Ratio 53 (6-26); Bilirubin,Direct 0.1 mg/dL (0.0-0.2); Bilirubin,Indirect 0.1 mg/dL (0.0-1.0); Bilirubin,Total 0.2 mg/dL (0.3-1.0); Blood Urea Nitrogen 21 mg/dL (6-20); Calcium 8.8 mg/dL (8.6-10.3); Carbon Dioxide 24 mEq/L (23-29); Chloride 105 mEq/L (98-107); Globulin 2.5 g/dL (2.4-3.5); Glucose 105 mg/dL (70-105); Lipase 36 Units/L (11-82); Osmolality,Calculated 285 (280-300); Potassium 4.5 mEq/L (3.5-5.1); Sodium 136 mEq/L (136-145); Total Protein 5.7 g/dL (6.4-8.9); eGFR For African Americans > 60 (> 60); eGFR For Non-African Americans > 60 (> 60)
[2019-04-26 18:18] LABS: Troponin I < 0.03 ng/mL (< 0.04)
[2019-04-26 19:22] LABS: Bilirubin,Urine Negative (Negative); Blood,Urine Negative (Negative); Color,Urine Yellow (Yellow); Glucose,Urine (UA) Normal (Normal); Ketones,Urine Negative (Negative); Leukocyte Esterase,Urine Negative (Negative); Nitrite,Urine Negative (Negative); Protein,Urine Negative (Neg-Trace); Specific Gravity,Urine 1.017 (1.010-1.025); Urobilinogen,Urine Normal (Normal)
[2019-04-26] MEDS ORDERED: *HR* HYDROmorphone (PF) 1 MG/ML SYRINGE IVP ONE (19:23)
[2019-04-26 19:25] LABS: Bacteria,Urine None Seen per hpf (None-Few); Hyaline Casts,Urine None Seen per lpf (None-Few); RBC,Urine 0-3 per hpf (0-3); Squamous Epithelial Cell,Urine Many per lpf (None-Few)
[2019-04-26 19:26] LABS: Clarity,Urine Slightly Hazy (Clear)
[2019-04-26] MEDS ORDERED: Aspirin 81 MG TAB.CHEW PO STA (20:39)
[2019-04-26] MEDS ORDERED: Ondansetron 4 MG/2 ML VIAL IVP PRN (21:30)
[2019-04-26] MEDS ORDERED: Naloxone 0.4 MG/ML INJ IVP PRN (21:30)
[2019-04-26] MEDS ORDERED: *HR* LORazepam 0.5 MG TABLET PO SCH (21:45)
[2019-04-26] MEDS ORDERED: cloNIDine HCl 0.1 MG TABLET PO ONE (21:45)
[2019-04-26] MEDS ORDERED: OLANZapine 10 MG TAB.RAPDIS PO SCH (21:45)
[2019-04-26] MEDS ORDERED: hydrOXYzine pamoate 25 MG CAPSULE PO SCH (21:45)
[2019-04-26] MEDS ORDERED: Gabapentin 400 MG CAPSULE PO SCH (21:45)
[2019-04-27] MEDS: *HR* Heparin 5,000 UNIT/ML VIAL SQ SCH ×2 (00:19→05:48)
[2019-04-27 07:37] LABS: Hematocrit 30.3 % (35.3-44.9); Hemoglobin 9.2 g/dL (11.5-15.4); Mean Corpuscular HGB Conc 30.4 g/dL (31.6-35.5); Mean Corpuscular Hemoglobin 26.1 pg (28.0-33.3); Mean Corpuscular Volume 86.1 fL (83.0-100.0); Mean Platelet Volume 9.2 fL (9.4-12.4); Platelet Count 340 K/mcL (140-400); Red Blood Count 3.52 M/mcL (3.82-4.97); Red Cell Distribution Width 16.1 % (11.5-14.5); White Blood Count 6.7 K/mcL (4.3-11.1)
[2019-04-27] MEDS: Tiotropium 18 MCG inhalation IH SCH ×2 (07:41→07:42)
[2019-04-27 07:59] VITALS: BP 98/49
[2019-04-27 08:53] LABS: Blood Urea Nitrogen 17 mg/dL (6-20); Calcium 8.6 mg/dL (8.6-10.3); Carbon Dioxide 24 mEq/L (23-29); Chloride 106 mEq/L (98-107); Glucose 85 mg/dL (70-105); Osmolality,Calculated 289 (280-300); Potassium 4.2 mEq/L (3.5-5.1); Sodium 139 mEq/L (136-145)
[2019-04-27] MEDS ORDERED: Aspirin Enteric Coated 81 MG Tablet PO SCH (09:00)
[2019-04-27] MEDS ORDERED: Isosorbide MONOnitrate (24 HR) 30 MG TAB.ER.24H PO SCH (09:00)
[2019-04-27 10:44] LABS: BUN/Creatinine Ratio 28 (6-26); eGFR For African Americans > 60 (> 60); eGFR For Non-African Americans > 60 (> 60)
== END 2019-04-27 10:50 | disposition left against medical advice (07) ==
LOC: EMEROOARM 15:57 → 3BNU 15:57
PROVIDERS: ADMIT Internal Medicine; ATTEND Internal Medicine